=== PATIENT | male | born 1950 | race Caucasian/White ===

== ENCOUNTER 2022-04-03 01:20 | Inpatient (IN) | payer MEDICARE, OTHER, SELFPAY ==
[2022-04-03] VITALS (48 sets, daily range): BP systolic 83–158; BP diastolic 49–90; PULSE 78–186; RESP 17–44; TEMP 34.9–36.9; O2SAT 89–100; BMI 31.6
--- NOTE | 2022-04-03 | ECHO_ITS ---
Patient Info Name: Solo Driver Age: 72 years : 1950 Gender: Male Ht: 67 in Wt: 201 lbs BSA: 2.11 m2 HR: 118 bpm BP: 124 / 71 mmHg Heart Rhythm: Sinus Rhythm Technical Quality: Fair Exam Date: 04/03/2022 11:40 AM Exam Location: [facility] Pulmonary Patient Status: Inpatient Admit Date: 04/03/2022 Staff Ordering Physician: Fiordaliza Henao MD Executive Vice President Of Sales: Zahraa Merritt RDCS Attending Provider: Damien España MD Referring Physician: Juliano JIMÉNEZ; Exam Type: CA echo doppler color flow Study Info Indications I21.4 - Non-ST elevation (NSTEMI) myocardial infarction Complete two-dimensional, color flow and Doppler transthoracic echocardiogram is performed. Summary 1. Complete two-dimensional, color flow and Doppler transthoracic echocardiogram is performed. 2. Moderate left ventricular enlargement with mild hypertrophy. Severe hypokinesis of the mid and distal anterolateral and anteroseptal segements as well as apex, with moderate hypokinesis of the inferior wall. EF 30% Grade 2 diastolic dysfunxtion is present. 3. Left atrial chamber dimension is mildly enlarged. 4. No pulmonary hypertension, estimated pulmonary arterial systolic pressure is 32 mmHg. 5. No significant valve disease. 6. NSR. Left Ventricle Left ventricular chamber dimension is moderately enlarged. Left ventricular systolic function is severely reduced, estimated at 25-30%. There is mildly increased left ventricular wall thickness. Left ventricular septal wall motion is normal. The left ventricular diastolic function is grade II diastolic dysfunction. Global longitudinal strain is severely elevated at -8 %. Right Ventricle Right ventricular chamber dimension is normal. Right ventricular systolic function is normal. Left Atria Left atrial chamber dimension is mildly enlarged. Right Atria Right atrial chamber dimension is normal. Aortic Valve The aortic valve is trileaflet. There is no aortic valve sclerosis. There is no aortic valve stenosis. There is no aortic valve regurgitation. Pulmonic Valve The pulmonic valve is normal. There is no pulmonic valve stenosis. There is no pulmonic regurgitation. Mitral Valve The mitral valve has normal leaflets. There is no mitral valve stenosis. There is trace mitral valve regurgitation. Tricuspid Valve The tricuspid valve leaflets are normal. There is no significant tricuspid valve stenosis. There is trace tricuspid valve regurgitation. No pulmonary hypertension, estimated pulmonary arterial systolic pressure is 32 mmHg. Pericardium/Pleural The pericardium appears normal. There is no pericardial effusion. Inferior Vena Cava Normal inferior vena cava with >50% collapse upon inspiration consistent with Empty right atrial pressure, 10 mmHg. Aorta The aortic root size at the sinus of Valsalva is normal. The prox ascending aorta size is normal. Left Ventricular Outflow Tract Name Value Normal LVOT 2D LVOT Diameter 2.0 cm LVOT Doppler LVOT Peak Gradient 4 mmHg LVOT Mean Gradient 2 mmHg
--- NOTE | ~2022-04-03 | XR_ITS ---
EXAMINATION: XR chest 1V portable DATE: 04/04/2022 10:33 INDICATION: Intra-aortic balloon pump. TECHNIQUE: A single frontal view of the chest was obtained. COMPARISON: Chest single view 04/03/2022 FINDINGS: There are airspace opacities in the perihilar regions and lower lung zones. No pleural effu ez or pneumothorax. The heart size is normal. There is an intra-aortic balloon pump in expected pos ition. Mediastinal lipomatosis is noted. IMPRESSION: 1. Improved airspace opacities in the perihilar regions and lower lung zones, consistent with pulmona ry edema versus pneumonia. Reviewed, dictated and finalized at location A. IMPRESSION: 1. Improved airspace opacities in the perihilar regions and lower lung zones, c onsistent with pulmonary edema versus pneumonia.
--- NOTE | ~2022-04-03 | XR_ITS ---
EXAMINATION: XR chest 1V portable INDICATION: Congestive heart failure TECHNIQUE: Portable AP chest at 0534 hours COMPARISON: 04/04/2022 FINDINGS: There are stable bilateral perihilar opacities. Bibasilar airspace opacities have improved. The heart size is normal. No pleural effusion or pneumothorax. An intra-aortic balloon pump is noted in expected position. IMPRESSION: 1. Stable bilateral perihilar opacities, consistent with atelectasis versus pneumonia. Reviewed, dictated and finalized at location A. IMPRESSION: 1. Stable bilateral perihilar opacities, consistent with atelectasis versus pne umonia.
--- NOTE | ~2022-04-03 | XR_ITS ---
EXAMINATION: XR chest 1V portable DATE: 04/03/2022 02:21 INDICATION: Shortness of breath. TECHNIQUE: A single frontal view of the chest was obtained. COMPARISON: Chest 2 views 05/25/2004, chest CT 04/03/2022 FINDINGS: There are airspace and interstitial opacities in all right lung zones and in left mid and l ower lung zones. There are small pleural effusions. No pneumothorax. The heart size is normal. IMPRESSION: 1. Diffuse lung disease, consistent with pneumonia and/or pulmonary edema. 2. Small pleural effusions. Reviewed, dictated and finalized at location A.
--- NOTE | ~2022-04-03 | CT_ITS ---
EXAMINATION:CT diagnostic chest wo con DATE: 04/03/2022 03:37 INDICATION: Shortness of breath. TECHNIQUE: Computed tomography (CT) of the chest was performed without intravenous contrast. Automate d exposure control and iterative reconstruction technique were employed. The dose-length product (DLP ) was 432.35 mGy-cm. COMPARISON: None. FINDINGS: There are small pleural effusions. There are airspace and groundglass opacities and crazy p aving in all lobes with air bronchograms, worst in the lower lobes. There are pneumatoceles in the lo wer lobes. There are nodules in the thyroid measuring up to 11 mm, likely not clinically significant. The heart size is normal. There are coronary artery calcifications. No pericardial effusion. There i s a 1.6 x 2.3 cm mass with central calcifications in the anterior mediastinum. There is mild thoracic spondylosis. IMPRESSION: 1. Diffuse lung disease, consistent with pneumonia and/or pulmonary edema. 2. Small pleural effusions. 3. 2.3 cm mass with calcifications in the anterior mediastinum. The differential diagnosis includes t hymic neoplasm such as thymoma, germ cell neoplasm, and ectopic thyroid nodule. Reviewed, dictated and finalized at location [facility]. IMPRESSION: 1. Diffuse lung disease, consistent with pneumonia and/or pulmonary edema. 2. Small pleural effusions. 3. 2.3 cm mass with calcifications in the anterior mediastinum. The differentia l diagnosis includes thymic neoplasm such as thymoma, germ cell neoplasm, and e ctopic thyroid nodule.
--- NOTE | ~2022-04-03 | CT_ITS ---
EXAMINATION: CT abdomen pelvis wo con DATE: 04/04/2022 09:38 INDICATION: Retroperitoneal hemorrhage TECHNIQUE: Computed tomography (CT) of the abdomen and pelvis was performed without intravenous contr ast. Automated exposure control and iterative reconstruction technique were employed. Exam dose: 102 2.08 mGy-cm total exam DLP. COMPARISON: None. FINDINGS: Prominent patchy groundglass infiltrates are noted in the lower lung finnegan involving the m iddle, left and bilateral lower lobes. The appearance is most consistent with bilateral pneumonia, po ssibly Covid infection. Very small pleural effusions. Normal heart size. No pericardial effusion. The liver, spleen, pancreas, and adrenal glands are unremarkable. The gallbladder is present. No floyd cholecystic fluid or fat stranding. No bile duct or pancreatic duct dilatation. Slightly greater than 10 cm right renal cyst with some superior septation. Several punctate nonobstr ucting right renal calculi. There is an intra-aortic balloon pump. No abdominal aortic aneurysm. 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 No intraperitoneal or retroperitoneal or pelvic mass lesion or adenopathy or ascites is noted. There are numerous diverticula of the sigmoid and descending colon; no CT evidence of diverticulitis. There are fluid levels in the colon which is an abnormal finding unless there have been recent enema s. This may be due to colitis. Normal appendix. No bowel obstruction or intraperitoneal free air. There is a Pan catheter within the evacuated urinary bladder Prostate enlargement and calcifications. Bilateral vas deferens calcifications, usually associated with diabetes. Degenerative changes of the thoracic and lumbar spine including moderately severe degenerative diseas e at L4-5 and L5-S1. There is no suspicious osteolytic or osteoblastic lesions.. IMPRESSION: Intra-aortic balloon pump Prominent bilateral pulmonary infiltrates likely due to Covid pneumonia 10+ centimeter septated right renal cyst Minimal nonobstructive right nephrolithiasis Diverticulosis of left colon; no evidence of diverticulitis Reviewed, dictated and finalized at [facility]. Reviewed, dictated and finalized at location [facility].
--- NOTE | 2022-04-03 01:31 | ECG_ITS ---
Measurements Intervals [place] Rate: 158 P: 27 MD: 124 QRS: 45 QRSD: 95 T: 57 QT: 261 QTc: 424 Interpretive Statements SINUS TACH[address]ARD[address] ELEVATION, CONSIDER ANTERIOR INJURY INFERIOR AND LATERAL ST DEPRESSION CONSISTENT WITH ISCHEMIA NO PREVIOUS ECG AVAILABLE FOR COMPARISON Electronically Signed On 04-03-2022 18:16:22 CDT by Fiordaliza Henao M.D.
[2022-04-03] MEDS: FUROSEMIDE INJ 40 MG/4 ML VIAL IV PUSH ×2 (01:37→10:16)
[2022-04-03] MEDS: NITROGLYCERIN OINTMENT 1 INCH DOSE (01:37)
[2022-04-03] MEDS: LORazepam INJ (*CRX) 2 MG/ML VIAL 1 MG IV PUSH (01:38)
[2022-04-03 01:39] LABS: Alveolar/Arterial O2 Gradient 230.1 mmHg; Base Excess ABG -15.2 mEq/l (+/-2.0); Fractional Inspired Oxygen 50 %; HCO3 ABG 15.6 mEq/l (22.0-26.0); Oxygen Content ABG 19.9 %vol (16.0-22.0); PCO2 ABG 55.5 mmHg (35.0-45.0); PO2 FiO2 Ratio Arterial Blood 1.28 %; Total Hemoglobin 17.4 g/dL (12.0-18.0)
[2022-04-03 01:45] LABS: Oxygen Saturation ABG 82.3 % (95.0-100.0); pH ABG 7.066 (7.350-7.450)
[2022-04-03 01:46] LABS: Device NON-INVASIVE VENT; Modified Allen's Test Unable to perform; Oxyhemoglobin 81.5 % THb (90.0-100.0); Site Drawn RIGHT RADIAL
[2022-04-03 01:48] LABS: Basophils Percent Auto 0.3 % (0.2-1.2); Eosinophils Percent Auto 0.1 % (0-4.4); Hematocrit 55.9 % (42.0-52.0); Immature Granulocyte Absolute 0.09 K/mm3 (0.00-0.031); Immature Granulocyte Percent A 0.6 % (0-0.5); Lymphocytes Absolute Auto 2.23 K/mm3 (0.9-3.2); Mean Corpuscular HGB Conc 30.4 g/dl (32-36); Mean Corpuscular Hemoglobin 32.4 pg (26-34); Mean Corpuscular Volume 106.5 fl (80-100); Mean Platelet Volume 10.8 fl (7.4-10.4); Monocytes Absolute Auto 0.7 K/mm3 (0.1-0.6); Monocytes Percent Auto 4.7 % (2.6-8.5); Neutrophils Absolute Auto 12.8 K/mm3 (1.3-6.7); Neutrophils Percent Auto 80.3 % (45.5-73.1); Non-Invasive Expiratory Pressure 8 CMH2O; Non-Invasive Inspiratory Pressure 12 CMH2O; Non-Invasive Vent Rate 16 /MIN; Platelet Count Result 310 k/mm3 (150-375); Red Blood Count 5.25 M/mm3 (4.6-6.20); Red Cell Distribution Width 13.7 % (11.5-14.5); White Blood Count 15.9 K/mm3 (4.5-10.0)
[2022-04-03] MEDS: ALBUTEROL SULFATE NEB 2.5 MG/3 ML INH 5 MG INHALATION (01:48)
[2022-04-03] MEDS: dilTIAZem HCl INJ 25 MG/5 ML VIAL 10 MG IV PUSH (01:50)
[2022-04-03] MEDS: dilTIAZem 100 MG/100 ML 100 MG/100 ML BAG IV CONT (01:57)
--- NOTE | 2022-04-03 02:03 | ECG_ITS ---
Measurements Intervals [place] Rate: 114 P: 63 [place]: 157 QRS: 11 QRSD: 81 T: 106 QT: 309 QTc: 426 Interpretive Statements SINUS TACHYCARDIA WITH OCCASIONAL ECTOPIC PREMATURE COMPLEXES LOW QRS VOLTAGE IN EXTREMITY LEADS [QRS DEFLECTION < 0.5 mV IN LIMB LEADS] ST ELEVATION CONSISTENT WITH INJURY, PERICARDITIS, OR EARLY REPOLARIZATION [ST ELEVATION W/O NORMALLY INFLECTED T WAVE] ST DEPRESSION, CONSIDER INFEROLATERAL SUBENDOCARDIAL INJURY [0.1+ mV ST DEPRESSION] ABNORMAL QRS-T ANGLE [QRS-T AXIS DIFFERENCE > 60] COMPARED TO ECG 04/03/2022 01:38:15 RATE IS SLOWER. Electronically Signed On 04-03-2022 18:17:14 CDT by Fiordaliza Henao M.D.
[2022-04-03 02:05] LABS: Albumin Level 5.2 g/dL (3.5-5.1); Alkaline Phosphatase 114 U/L (38-126); Anion Gap 22 mmol/L (8-16); Aspartate Amino Transferase 44 U/L (17-59); Bilirubin,Total 0.6 mg/dL (0.2-1.3); Blood Urea Nitrogen 27 mg/dL (9-20); Calcium 10.2 mg/dL (8.4-10.2); Carbon Dioxide 20 mmol/L (22-30); Chloride 102 mmol/L (98-107); D Dimer 0.93 ug/mL (<0.48); Estimated CRCL calculation 44 ml/min; Estimated Glomerular Filt Rate 50; Glucose 411 mg/dL (65-110); Potassium 4.1 mmol/L (3.4-5.0); Sodium 144 mmol/L (137-145)
[2022-04-03 02:08] LABS: Macrocytosis 1+ (NORMAL); Platelet Estimate Adequate (Adequate)
[2022-04-03 02:09] LABS: Alanine Aminotransferase 29 U/L (6-50)
[2022-04-03 02:14] LABS: NT Pro B Type Natriuretic Pept 1310 pg/mL (5-100)
--- NOTE | 2022-04-03 02:17 | PC.NURSE ---
Called lab and requested additional tests to be done per EDP Dr Morin orders, will add on at this time.
[2022-04-03 02:43] LABS: SARS-CoV-2 RNA PCR Positive
--- NOTE | 2022-04-03 02:45 | PC.NURSE ---
Per EDP, Nitro Paste removed from RIGHT chest, 500MLS/NS bolus initiated due to hypotension.
[2022-04-03] MEDS: SODIUM CHLORIDE 0.9% IV 500 ML 999 ML (02:47)
[2022-04-03 02:50] LABS: Alveolar/Arterial O2 Gradient 595.2 mmHg; Base Excess ABG -7.4 mEq/l (+/-2.0); Device NON-INVASIVE VENT; Fractional Inspired Oxygen 100 %; HCO3 ABG 19.7 mEq/l (22.0-26.0); Modified Allen's Test Unable to perform; Oxygen Content ABG 20.3 %vol (16.0-22.0); Oxygen Saturation ABG 92.1 % (95.0-100.0); Oxyhemoglobin 90.1 % THb (90.0-100.0); PCO2 ABG 45.6 mmHg (35.0-45.0); PO2 ABG 72.2 mmHg (80.0-100.0); PO2 FiO2 Ratio Arterial Blood 0.72 %; Site Drawn RIGHT BRACHIAL; pH ABG 7.254 (7.350-7.450)
[2022-04-03] MEDS: HEPARIN SODIUM 5,000 UNITS/ML VIAL 4000 UNITS IV PUSH ×2 (02:50→11:55)
[2022-04-03 02:51] LABS: Non-Invasive Expiratory Pressure 8 CMH2O; Non-Invasive Inspiratory Pressure 12 CMH2O; Non-Invasive Vent Rate 16 /MIN
[2022-04-03 02:52] LABS: Beta-Hydroxybutyrate/Acetoacetate 0.61 mmol/L (0.02-0.27); Hemoglobin A1C 7.1 % (<5.7)
[2022-04-03] MEDS: INSULIN GLARGINE (*BKC) 100 UNITS/ML 14 UNITS SUB-Q (02:59)
--- NOTE | 2022-04-03 03:21 | PC.NURSE ---
Pt to CT scan via stretcher at this time, RESP in assist w/ BIPAP.
--- NOTE | 2022-04-03 03:31 | PM.IMHP ---
H&P: HPI History of Present Illness Date/Time: 04/03/22 03:31 Chief Complaint: SOB Narrative: This is a 72-year-old male with past medical history significant for type 2 diabetes mellitus, weight control, patient usually gets [facility], tested positive for COVID recently today he was brought to the emergency room via EMS due to severe respiratory distress and work of breathing upon arrival to emergency room he was found to have saturations in the low 80s and preliminary workup was significant for ABG with a pH of 7.2 with a pCO2 of 45 and PO2 of 72 a chest x-ray showed diffuse lung infiltrates and tested positive for COVID also troponins were elevated. Patient was placed on BiPAP and was given Lasix which improved his distress. At the time of my visit patient was on BiPAP making history taking limited but patient did express feeling much better. Patient is been admitted for further evaluation management and treatment. Review of Systems Review of Systems: ROS unobtainable: Yes unobtainable due to medical condition ( respiratory distress on BiPAP) Meds Home Medications and Allergies Allergies Allergy/AdvReac Type Severity Reaction Status Date / Time No Known Allergies Allergy Verified 04/03/22 01:27 Vital Signs Vital Signs - 24 hr 04/03/22 01:21 04/03/22 01:26 04/03/22 01:28 Pulse Rate 161 H 161 H Respiratory Rate 40 H Blood Pressure Pulse Oximetry 89 L 90 Oxygen Delivery Non-Rebreather Mask Non-Rebreather Mask Oxygen Flow Rate 15 15 04/03/22 01:43 04/03/22 01:52 04/03/22 01:57 Pulse Rate 151 H 186 H 176 H Respiratory Rate 44 H 40 H Blood Pressure 158/90 H 126/85 126/85 Pulse Oximetry 98 91 Oxygen Delivery Oxygen Flow Rate 04/03/22 01:58 04/03/22 01:46 04/03/22 02:03 Pulse Rate 127 H 122 H 123 H Respiratory Rate 38 H 39 H 28 H Blood Pressure 126/85 Pulse Oximetry 98 Oxygen Delivery Oxygen Flow Rate 04/03/22 02:04 04/03/22 02:08 04/03/22 02:45 Pulse Rate 122 H 118 H 107 H Respiratory Rate 36 H 26 H Blood Pressure 93/59 L 83/49 L Pulse Oximetry 95 97 Oxygen Delivery BiPAP Oxygen Flow Rate 04/03/22 02:54 Pulse Rate 109 H Respiratory Rate 33 H Blood Pressure 109/52 L Pulse Oximetry 99 Oxygen Delivery Oxygen Flow Rate Exam Const: General: cooperative, comfortable, well developed, alert, awake, acute distress mild, ill appearing acutely and other ( on BiPAP) Nutritional Appearance: average body habitus Orientation/consciousness: patient oriented x3 HENMT: Head: normal to inspection, normocephalic and atraumatic Ears: hearing grossly normal bilaterally Face and sinus: normal facial exam Eyes: General: appearance normal, both eyes and all related structures Pupils: Equal, round and reactive pupils present EOM: EOMs intact bilaterally Other: BiPAP mask on Neck: Neck: full ROM, no lymphadenopathy and no JVD Thyroid: thyroid normal Lymphatic: no lymphadenopathy noted Resp: Effort & Inspection: normal respiratory effort, no audible wheezes, no grunting, not labored, no nasal flaring and other ( on BiPAP) Auscultation: diminished lung sounds Cardio: Jugular venous distension: no JVD Rate: regular rate Rhythm: regular rhythm Heart sounds: S1 normal heart sound present and S2 normal heart sound present GI: Inspection: other ( protuberant) GI Palp: Yes Soft to palpation and Yes No hepatosplenomegaly present : General: Yes deferred Skin: Rashes: no rashes Wounds: no wounds Neuro: General: patient oriented x3 and CN's II-XI intact bilaterally Cranial nerves: Yes CN's II-XII intact bilaterally and Yes Equal, round and reactive pupils present Cognition (Neuro): normal cognition Speech: normal speech Gait exam (Neuro): Unable to assess gait Motor exam (neuro): 5/5 motor strength present throughout Extrem: General: normal to inspection, full ROM, no joint enlargement and no pedal edema H&P: Results Labs Labs: Britany
--- NOTE | 2022-04-03 03:38 | ED.GENADULT ---
HPI - General Adult General Chief complaint: Shortness of Breath/Dyspnea Stated complaint: SOB Time Seen by Provider: 04/03/22 01:28 History of Present Illness HPI narrative: 72-year-old male presenting the emergency department for evaluation of shortness of breath. Patient states over the last 2 days he has been having worsening shortness of breath with some intermittent chest pain and chest tightness. This is the reason that the patient called for an ambulance. During transport by EMS patient had a decline in his condition and upon presentation to the emergency department he was in respiratory distress. Patient was saturating at low 80s on 15 L by facemask. Patient did have COVID approximately 2 months ago. Patient has a history of type 2 diabetes. Patient also has history of COPD and hypertension. Patient denies any prior history of PA. Patient does have a history of CVA. Related Data Allergies Allergy/AdvReac Type Severity Reaction Status Date / Time No Known Allergies Allergy Verified 04/03/22 01:27 Review of Systems Review of Systems: ROS unobtainable: Yes unobtainable due to medical condition [facility] Family History Family History (Updated 04/03/22 @ 04:52 by Ar Herron RN) Father Acute myocardial infarction Social History Social History Smoking packs per day: 2 Smoking cigarettes per day: 40.0 Years smoked: 40 Smoking pack-years: 80.00 Smoking status: Former smoker Tobacco type: cigarettes Alcohol intake: former Substance use: never Spiritual care concerns: No Exam Narrative: APPEARANCE: Respiratory distress upon arrival to the emergency communications department chair: normocephalic, atraumatic. EYES: PERRLA/EOMI, conjunctivae clear. NOSE: Normal no drainage NECK: Supple. No adenopathy, no masses. RESPIRATORY: Rhonchi and rails upon arrival, tachypnea CARDIOVASCULAR: Tachycardia with regular rate ABDOMINAL: Soft, nontender, nondistended, normal bowel sounds MUSCULOSKELETAL: Moves all extremities. Strength/ROM intact, No edema, No calf tenderness. NEURO: Alert. Cranial nerves II through XII intact. Grossly intact SKIN: Warm, dry. Normal Color PSYCHIATRIC: Normal affect/mood. Course Course Emergency Course: Upon arrival to emergency room patient appeared to be in flash pulm edema. Patient was given Lasix and Nitropaste. Patient's heart rate became irregular and was in the 200s so patient was started on Cardizem. As patient's heart rate slowed into the 120s he was in normal sinus and the Cardizem was stopped. Patient is diabetic with a beta hydroxybutyrate of 0.6 and a blood sugar sugar of greater than 400, patient was treated with subcu insulin. EKG was discussed with cardiology, Dr. eMera Kinsey, and he felt that this not an acute STEMI but wanted the patient treated as an NSTEMI. Patient was started on Plavix and heparin. X-ray showed evidence of pulmonary vascular ingestion versus pneumonia on the right side. And discussion with Dr. Brown it was agreed to start the patient on vancomycin, Rocephin, azithromycin. CT of the chest was requested by Dr. Brown, this was requested as a plain CT due to the patient already having Lasix. Patient did have a mildly elevated dimer but is receiving heparin. Patient's COVID did come back as positive. Patient did have a recent COVID infection approximately 2 months ago. Has a Case was discussed with the hospitalist and patient was admitted to the ICU. Prior to going to the floor patient's heart rate was down to 115. Patient's blood pressure was 120/60. Patient remained alert oriented and was significantly improved at time of admission. Vital Signs Vital signs: Vital Signs Pulse Rate 161 H 04/03/22 01:21 Respiratory Rate 40 H 04/03/22 01:21 Pulse Oximetry 89 L 04/03/22 01:21 Oxygen Delivery Non-Rebreather Mask 04/03/22 01:21 Oxygen Flow Rate 15 04/03/22 01:21 Pulse Rate 110 H 04/03/22 06:00 Respiratory Rate 26 H
[2022-04-03] MEDS: HEPARIN SOD/D5W 100 UNITS/ML 25,000 UNITS/250 ML BAG 9 UNITS IV CONT (03:39)
[2022-04-03] MEDS: CLOPIDOGREL BISULFATE 300 MG TABLET PO (03:39)
--- NOTE | 2022-04-03 04:00 | PC.NURSE ---
BS 357
[2022-04-03 04:04] LABS: Glucose Point of Care 357 mg/dl (65-105)
--- OUTSIDE RECORDS SUMMARY | 2022-04-03 04:04 | XMS_ITS | Continuity of Care Document ---
:1950 Author Organization [facility] Care Team Providers Name Role Phone [facility] Unavailable Unavailable Problems Combined list of problems from Department of Defense and Veterans Affairs facilities. It does not include entries that were removed or entered in error. Problem Status Onset Problem Type Date of Comments Source Date Resolution Abdominal Pain Active Condition [facility] Benign essential Active Condition [facility] hypertension (SNOMED [facility] [place] 3670923) DIVISION Blepharitis Active Condition [facility] Diabetes mellitus Active Condition [facility] Encounter for Active Condition [facility] Therapeutic Drug [facility] Monitoring DIVISION Erectile dysfunction Active Condition [facility] associated with type [facility] 2 diabetes mellitus DIVISION (SNOMED CT 945200653) Hyperglycemia due to Active Condition . [facility] type 2 diabetes [facility] mellitus DIVISION Hyperlipidemia Active Condition . [facility] (SNOMED CT [id number]) [facility] Obesity Active Condition [facility]
--- OUTSIDE RECORDS SUMMARY | 2022-04-03 04:07 | XMS_ITS ---
:1950 Author Organization Department [facility] rs Address [address] [place] [address] Support Name Relationship Address Phone JOSE MORENO Unavailable [address] [place] [address] JOSE MORENO Unavailable [address] [place] [address] Insurance Providers: All historical and current Section Date Range: From patient's date of to the date document was created.This section includes the names of all active insurance providers for the patient. Insurance Type of Plan Start of End of Group Member Insurance Policy P atient's Provider Coverage Name Policy Policy Number ID Provider's Pete's Relationship Coverage Coverage Telephone Name to Policy Number Pete UNITED MEDICARE MCR Aug 24 [id number] TIFF[employer]IE [employer]VANTAGE (WNR) 2013 0 [facility]A [facility] (WNR) Selected Encounter This section includes the information on record at [place] for the Encounter. Date/Time Encounter Type Encounter Description Reason Provider Source May 06, 2021 08:35 Outpatient Encounter ADMIN MT WALTERS AM (OPALCT) IHE Encounter Template Text not used by [place] Plan of Treatment: Future Appointments (+ 6 months) and Future Tests (+/- 45 days) The Plan of Treatment section includes future care activities for the patient from all [place] treatmentfacilities. This section includes future appointments and future orders which are active, pending orscheduled.Future Appointments This section includes appointments that were scheduled to occur 6 months from the date of the Encounter, up to a maximum of 20 appointments. The data comes from all [place] treatment facilities. Appointment Date/Time Appointment Type Appointment Facili ty Name Jun 26, 2021 09:00 AM AMBULATORY - SURGERY [facility] Sep 10, 2021 10:00 AM AMBULATORY - MEDICINE [facility]
--- OUTSIDE RECORDS SUMMARY | 2022-04-03 04:07 | XMS_ITS | Encounter Summary ---
:1950 Author Organization Department [facility] rs Address [address] [place] [address] Support Name Relationship Address Phone JOSE MORENO Unavailable [address] [facility] [place] [address] JOSE MORENO Unavailable [address] [facility] ( [phone] [place] [address] Insurance Providers: All historical and current Section [...] Policy Number Pete UNITED MEDICARE MCR Aug [id number] TIFF[employer]IE [employer]VANTAGE (WNR) 2013 27 0 ISABELA [facility] (WNR) Selected Encounter This section includes the information on record at [place] for the Encounter. Date/Time Encounter Type Encounter Description Reason Provider Source Sep 23, 2021 10:28 Outpatient Encounter ADMIN MT WALTERS AM (OPALCT) IHE Encounter Template Text not used by [place] Plan of Treatment: Future Appointments (+ 6 months) and Future Tests (+/- 45 days) The Plan of Treatment section includes future care activities for the patient from all [place] treatmentfacilities. This section includes future appointments and future orders which are active, pending orscheduled.Future Appointments This section includes appointments that were scheduled to occur 6 months from the date of the Encounter, up to a maximum of 20 appointments. The data comes from all [place] treatment facilities. Appointment Date/Time Appointment Type Appointment Facili ty Name Feb 18, 2022 09:30 AM AMBULATORY - MEDICINE [facility] Feb 27, 2022 10:30 AM AMBULATORY - MEDICINE [facility]
--- OUTSIDE RECORDS SUMMARY | 2022-04-03 04:07 | XMS_ITS ---
:1950 Author Organization Department [facility] rs Address [address] [place] [id number] Support Name Relationship Address Phone JOSE MORENO Unavailable [address] [facility] [place] [address] JOSE MORENO Unavailable [address] [facility] [place] [address] Insurance Providers: All historical and current Section [...] Number Pete UNITED MEDICARE MCR Aug 24 [id number] [phone] TIFF[employer]IE [employer]AGE (WNR) 2013 27 0 [facility] (WNR) Selected Encounter This section includes the information on record at [place] for the Encounter. Date/Time Encounter Type Encounter Reason Provider Source Description Feb 18, 2022 12:57 Outpatient ADMIN PAT ADENIKE WILLIS E PM Encounter (COURTNONCT) IHE Encounter Template Text not used by [place] Plan of Treatment: Future Appointments (+ 6 months) and Future Tests (+/- 45 days) The Plan of Treatment section includes future care activities for the patient from all [place] treatmentfacilities. This section includes future appointments and future orders which are active, pending orscheduled.Future Appointments This section includes appointments that were scheduled to occur 6 months from the date of the Encounter, up to a maximum of 20 appointments. The data comes from all [place] treatment facilities. Appointment Date/Time Appointment Type Appointment Facili ty Name Feb 27, 2022 10:30 AM AMBULATORY - MEDICINE [facility]
--- OUTSIDE RECORDS SUMMARY | 2022-04-03 04:08 | XMS_ITS | Encounter Summary ---
:1950 Author Organization Department [facility] rs Address [address] [place] [address] Support Name Relationship Address Phone JOSE MORENO Unavailable [address] [facility] [place] [address] JOSE MORENO Unavailable [address] [facility] ( [phone] [place] [address] Insurance Providers: All historical and current Section [...] Number Pete UNITED MEDICARE MCR Aug 24 [id number] [phone] TIFFANIE [employer]VANTAGE (WNR) 2013 0 IS[facility]ELA [facility] (WNR) Selected Encounter This section includes the information on record at [place] for the Encounter. Date/Time Encounter Type Encounter Description Reason Provider Source Feb 27, 2022 10:16 Outpatient Encounter ADMIN MT WALTERS AM (OPALCT) IHE Encounter Template Text not used by [place] Plan of Treatment: Future Appointments (+ 6 [...] 20 appointments. The data comes from all [place] treatment facilities. Appointment Date/Time Appointment Type Appointment Facili ty Name Apr 10, 2022 09:30 AM AMBULATORY - MEDICINE [facility] Jun 24, 2022 08:30 AM AMBULATORY - SURGERY [facility]
--- OUTSIDE RECORDS SUMMARY | 2022-04-03 04:08 | XMS_ITS | Encounter Summary ---
:1950 Author Organization [facility] Address [address] [place] [address] Support Name Relationship Address Phone JOSE MORENO Unavailable [address] [facility] [address] JOSE MORENO Unavailable [address] [facility] [address] Insurance Providers: All historical and current Section [...] Policy Number Pete UNITED MEDICARE MCR Aug 24, [id number] IT[employer]IE [employer]VANTAGE (WNR) 2013 27 0 [facility]A [facility] (WNR) Selected Encounter This section includes the information on record at [place] for the Encounter. Date/Time Encounter Type Encounter Reason Provider Source Description Mar 03, 2022 02:07 Outpatient TELEPHONE PRIMARY HARJEET DRAPER PM Encounter CARE IHE Encounter Template Text not used by [place] Plan of Treatment: Future Appointments (+ 6 [...] 20 appointments. The data comes from all [place] treatment facilities. Appointment Date/Time Appointment Type Appointment Facili ty Name Apr 10, 2022 09:30 AM AMBULATORY - MEDICINE [facility] Jun 24,
--- OUTSIDE RECORDS SUMMARY | 2022-04-03 04:08 | XMS_ITS | Encounter Summary ---
:1950 Author Organization [facility] Address [address] [place] [address] Support Name Relationship Address Phone JOSE MORENO Unavailable [address] [facility] [place] [address] JOSE MORENO Unavailable [address] [facility] [place] [address] Insurance Providers: All historical and current Section [...] Number Pete UNITED MEDICARE MCR Aug 24, [id number] [phone] TIFF[employer]IE [employer]VANTAGE (WNR) 2013 27 0 [facility]ELA [facility] (WNR) Selected Encounter This section includes the information on record at [place] for the Encounter. Date/Time Encounter Type Encounter Description Reason Provider Source Mar 15, 2022 02:44 Outpatient Encounter TELEPHONE TRIAGE AM IHE Encounter Template Text not used by [place] Plan of Treatment: Future Appointments (+ 6 months) and Future Tests (+/- 45 days) The Plan of Treatment section includes future care activities for the patient from all [place] treatmentfacilities. This section includes future appointments and future orders which are active, pending orscheduled.Future Appointments This section includes appointments that were scheduled to occur 6 months from the date of the Encounter, up to a maximum of 20 appointments. The data comes from all [place] treatment facilities. Appointment Date/Time Appointment Type Appointment Facili ty Name Apr 10, 2022 09:30 AM AMBULATORY - MEDICINE [facility] Jun 24, 2022 08:30 AM AMBULATORY - SURGERY [facility]
--- OUTSIDE RECORDS SUMMARY | 2022-04-03 04:09 | XMS_ITS | Encounter Summary ---
:1950 Author Organization Department [facility] rs Address [address] [place] [address] Support Name Relationship Address Phone JOSE MORENO Unavailable [address] [facility] [address] JOSE MORENO Unavailable [address] [facility] ( [phone] [place] [address] Insurance Providers: All historical and current Section [...] Number Pete UNITED MEDICARE MCR Aug 24 [id number] [phone] PATIENCE MORENO [employer] ADVANTAGE (WNR) 2013 0 ISABELA [facility] (WNR) Selected Encounter This section includes the information on record at [place] for the Encounter. Date/Time Encounter Type Encounter Reason Provider Source Description Feb 18, 2022 OFFICE O/P EST PRIMARY ICD-10-CM E11.65 BRYCE SIMONS 09:30 AM MOD 30-39 MIN CARE/MEDICINE Type 2 diabetes D T mellitus with hyperglycemia with Provider Comments: Hyperglycemia due to type 2 diabetes mellitus ([facility] [id number]) IHE Encounter Template Text not used by [facility] Assessments - Encounter Diagnoses This section includes the primary and secondary diagnoses documented for the Encounter. Date/Time Primary/Secondary Diagnos
--- OUTSIDE RECORDS SUMMARY | 2022-04-03 04:09 | XMS_ITS | Encounter Summary ---
:1950 Author Organization Department [facility] rs Address [address] [place] [address] Support Name Relationship Address Phone JOSE MORENO Unavailable [address] [facility] ( [phone] [place] [address] JOSE MORENO Unavailable [address] [facility] [place] [address] Insurance Providers: All historical and current Section [...] Number Pete UNITED MEDICARE MCR Aug 24 [id number] [phone] TIFFANIE PATIENT HEALTHCARE ADVANTAGE (WNR) 2013 27 0 ISABELA [facility] (WNR) Selected Encounter This section includes the information on record at [place] for the Encounter. Date/Time Encounter Type Encounter Description Reason Provider Source Feb 18, 2022 01:04 Outpatient Encounter ADMIN PAT ACTIVTIES PM (COURTNONCT) IHE Encounter Template Text not used by [place] Plan of Treatment: Future Appointments (+ 6 [...] 20 appointments. The data comes from all [place] treatment facilities. Appointment Date/Time Appointment Type Appointment Facili ty Name Feb 27, 2022 10:30 AM AMBULATORY - MEDICINE [facility] Apr 10, 2022 09:30 AM AMBULATORY - MEDICINE [place]
--- OUTSIDE RECORDS SUMMARY | 2022-04-03 04:09 | XMS_ITS | Encounter Summary ---
:1950 Author Organization [facility] Address [address] [place] [address] Support Name Relationship Address Phone JOSE MORENO Unavailable [address] [facility] [place] [address] JOSE MORENO Unavailable [address] [facility] ( [phone] [place] [address] Insurance Providers: All historical and current Section [...] Number Pete UNITED MEDICARE MCR Aug 24, [id number] [phone] TIFFANIE PATIENT HE[employer]CARE ADVANTAGE (WNR) 2013 27 0 ISABELA [facility] (WNR) Selected Encounter This section includes the information on record at [place] for the Encounter. Date/Time Encounter Type Encounter Reason Provider Source Description Feb 27, 2022 HC PRO PHONE TELEPHONE PRIMARY ICD-10-CM ADENIKE HENRIQUEZ 10:30 AM CALL 11-20 MIN CARE E11.40 Type 2 E diabetes mellitus with diabetic neuropathy, unsp with Provider Comments: Diabetes mellitus (SCT [id number]) IHE Encounter Template Text not used by VA Assessments - En
--- OUTSIDE RECORDS SUMMARY | 2022-04-03 04:09 | XMS_ITS | Encounter Summary ---
:1950 Author Organization [facility] Address [address] [place] [address] Support Name Relationship Address Phone JOSE MORENO Unavailable [address] [facility] [place] [address] JOSE MORENO Unavailable [address] [facility] [place] [address] Insurance Providers: All historical and current Section [...] Number Pete UNITED MEDICARE MCR Aug 24, [id number] [phone] TIFFANIE PATIENT [employer]CARE ADVANTAGE (WNR) 2013 0 ISABELA [facility] (WNR) Selected Encounter This section includes the information on record at [place] for the Encounter. Date/Time Encounter Type Encounter Reason Provider Source Description Feb 17, 2022 09:19 Outpatient TELEPHONE PRIMARY CONCEPCIÓN LEMUS AM Encounter CARE IHE Encounter Template Text not used by [place] Plan of Treatment: Future Appointments (+ 6 months) and Future Tests (+/- 45 days) The Plan of Treatment section includes future care activities for the patient from all [place] treatmentfacilities. This section includes future appointments and future orders which are active, pending orscheduled.Future Appointments This section includes appointments that were scheduled to occur 6 months from the date of the Encounter, up to a maximum of 20 appointments. The data comes from all [place] treatment facilities. Appointment Date/Time Appointment Type Appointment Facili ty Name Feb 18, 2022 09:30 AM [facility] Feb 27
--- OUTSIDE RECORDS SUMMARY | 2022-04-03 04:11 | XMS_ITS | Encounter Summary ---
:1950 Author Organization [facility] Address [address] [place] [address] Support Name Relationship Address Phone JOSE MORENO Unavailable [address] [facility] [place] [address] JOSE MORENO Unavailable [address] [facility] [place] [address] Insurance Providers: All historical and current Section [...] Number Pete UNITED MEDICARE MCR Aug 24, [id number] [phone] TIFFANIE PATIENT [employer] ADVANTAGE (WNR) 2013 27 0 ISABELA [facility] (WNR) Selected Encounter This section includes the information on record at [place] for the Encounter. Date/Time Encounter Type Encounter Reason Provider Source Description Feb 03, 2022 08:12 Outpatient Encounter TELEPHONE TRIAGE H BOB PAUL AM Encounter Template Text not used by [place] Plan of Treatment: Future Appointments (+ 6 months) and Future Tests (+/- 45 days) The Plan of Treatment section includes future care activities for the patient from all [place] treatmentfacilities. This section includes future appointments and future orders which are active, pending orscheduled.Future Appointments This section includes appointments that were scheduled to occur 6 months from the date of the Encounter, up to a maximum of 20 appointments. The data comes from all [place] treatment facilities. Appointment Date/Time Appointment Type Appointment Facili ty Name Feb 18, 2022 09:30 AM AMBULATORY - MEDICINE [facility] Bobby
--- OUTSIDE RECORDS SUMMARY | 2022-04-03 04:11 | XMS_ITS | Encounter Summary ---
:1950 Author Organization [facility] Address [address] [place] [address] Support Name Relationship Address Phone JOSE MORENO Unavailable [address] [facility] [address] JOSE MORENO Unavailable [address] [facility] [address] Insurance Providers: All historical and current Section [...] Number Pete UNITED MEDICARE MCR Aug 24, [id number] [phone] TIFFANIE PATIENT HE[employer]CARE ADVANTAGE (WNR) 2013 27 0 ISABELA [facility] (WNR) Selected Encounter This section includes the information on record at [place] for the Encounter. Date/Time Encounter Type Encounter Description Reason Provider Source Jan 26, 2022 02:56 Outpatient Encounter TELEPHONE TRIAGE AM IHE Encounter [...] 18, 2022 09:30 AM [facility] Feb 27, 2022 10:30 AM AMBULATORY - MEDICINE [place] Espinoza
--- OUTSIDE RECORDS SUMMARY | 2022-04-03 04:11 | XMS_ITS | Encounter Summary ---
:1950 Author Organization [facility] Address [address] [place] [address] Support Name Relationship Address Phone JOSE MORENO Unavailable [address] [facility] [place] [address] JOSE MORENO Unavailable [address] [facility] [place] [address] Insurance Providers: All historical and current Section [...] Number Pete UNITED MEDICARE MCR Aug 24, [id number] [phone] TIFFANIE PATIENT HE[employer]CARE ADVANTAGE (WNR) 2013 27 0 ISABELA [facility] (WNR) Selected Encounter This section includes the information on record at [place] for the Encounter. Date/Time Encounter Type Encounter Description Reason Provider Source Dec 15, 2021 03:04 Outpatient Encounter TELEPHONE TRIAGE PM IHE Encounter Template Text not used by [place] Plan of Treatment: Future Appointments (+ 6 months) and Future Tests (+/- 45 days) The Plan of Treatment section includes future care activities for the patient from all [place] treatmentfacilities. This section includes future appointments and future orders which are active, pending orscheduled.Future Appointments This section includes appointments that were scheduled to occur 6 months from the date of the Encounter, up to a maximum of 20 appointments. The data comes from all [place] treatment facilities. Appointment Date/Time Appointment Type Appointment Facili ty Name Feb 18, 2022 09:30 AM AMBULATORY - MEDICINE [facility] Feb 27, 2022 10:30 AM AMBULATORY - MEDICINE [facility]
--- OUTSIDE RECORDS SUMMARY | 2022-04-03 04:12 | XMS_ITS | Encounter Summary ---
:1950 Author Organization [facility] rs Address [address] [place] [address] Support Name Relationship Address Phone JOSE MORENO Unavailable [address] [facility] ( [phone] [place] [address] JOSE MORENO Unavailable [address] [facility] [place] [address] Insurance Providers: All historical and current Section [...] Number Pete UNITED MEDICARE MCR Aug 24 [id number] [phone] TIFFANIE PATIENT HEALTHCARE ADVANTAGE (WNR) 2013 0 ISABELA [facility] (WNR) Selected Encounter This section includes the information on record at [place] for the Encounter. Date/Time Encounter Type Encounter Description Reason Provider Source May 23, 2021 03:13 Outpatient Encounter ADMIN PAT ACTIVTIES PM (COURTNONCT) IHE Encounter Template Text not used by [place] Plan of Treatment: Future Appointments (+ 6 months) and Future Tests (+/- 45 days) The Plan of Treatment section includes future care activities for the patient from all [place] treatmentfacilities. This section includes future appointments and future orders which are active, pending orscheduled.Future Appointments This section includes appointments that were scheduled to occur 6 months from the date of the Encounter, up to a maximum of 20 appointments. The data comes from all [place] treatment facilities. Appointment Date/Time Appointment Type Appointment Facili ty Name Jun 26, 2021 09:00 AM AMBULATORY - SURGERY [facility] Sep 10, 2021 10:00 AM AMBULATORY - MEDICINE [place]
--- OUTSIDE RECORDS SUMMARY | 2022-04-03 04:12 | XMS_ITS | Encounter Summary ---
:1950 Author Organization [facility] Address [address] [place] [address] Support Name Relationship Address Phone JOSE MORENO Unavailable [address] [facility] [place] [address] JOSE MORENO Unavailable [address] [facility] [place] [address] Insurance Providers: All historical and current Section [...] Policy Number Pete UNITED MEDICARE MCR Aug [id number] [phone] TIFFANIE PATIENT HEALTHCARE ADVANTAGE (WNR) 2013 27 0 ISABELA [facility] (WNR) Selected Encounter This section includes the information on record at [place] for the Encounter. Date/Time Encounter Type Encounter Description Reason Provider Source Jul 10, 2021 12:00 Outpatient Encounter EVENT (HISTORICAL) AM IHE Encounter Template Text not used by [place] Plan of Treatment: Future Appointments (+ 6 [...] 20 appointments. The data comes from all [place] treatment facilities. Appointment Date/Time Appointment Type Appointment Facili ty Name Sep 10, 2021 10:00 AM [facility]ULATORY - MEDICINE [place] [facility] Social History: Smoking Status (Most current) and Tobacco Use (All prior
--- OUTSIDE RECORDS SUMMARY | 2022-04-03 04:12 | XMS_ITS | Encounter Summary ---
:1950 Author Organization [facility] Address [address] [place] [address] Support Name Relationship Address Phone JOSE MORENO Unavailable [address] [facility] [place] [address] JOSE MORENO Unavailable [address] [facility] [place] [address] Insurance Providers: All historical and current Section [...] Number Pete UNITED MEDICARE MCR Aug 24, [id number] [phone] TIFFANIE , PATIENT HEALTHCARE ADVANTAGE (WNR) 2013 0 ISABELA [facility] (WNR) Selected Encounter This section includes the information on record at [place] for the Encounter. 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
--- OUTSIDE RECORDS SUMMARY | 2022-04-03 04:12 | XMS_ITS | Encounter Summary ---
:1950 Author Organization [facility] Address [address] [place] [address] Support Name Relationship Address Phone JOSE MORENO Unavailable [address] [place] [address] JOSE MORENO Unavailable [address] [place] [address] Insurance Providers: All historical and current Section [...] Number Pete UNITED MEDICARE MCR Aug 24 [id number] [phone] TIFFANIE PATIENT HEALTHCARE ADVANTAGE (WNR) 2013 0 ISABELA [facility] (WNR) Selected Encounter This section includes the information on record at [place] for the Encounter. Date/Time Encounter Type Encounter Reason Provider Source Description May 14, 2021 08:22 Outpatient TELEPHONE/ANCILLARY VIN TOM AM Encounter RA L IHE Encounter Template Text not used by [place] Plan of Treatment: Future Appointments (+ 6 months) and Future Tests (+/- 45 days) The Plan of Treatment section includes future care activities for the patient from all [place] treatmentfacilities. This section includes future appointments and future orders which are active, pending orscheduled.Future Appointments This section includes appointments that were scheduled to occur 6 months from the date of the Encounter, up to a maximum of 20 appointments. The data comes from all [place] treatment facilities. Appointment Date/Time Appointment Type Appointment Facili ty Name Jun 26, 2021 09:00 AM AMBULATORY - SURGERY [facility]
--- OUTSIDE RECORDS SUMMARY | 2022-04-03 04:12 | XMS_ITS | Encounter Summary ---
:1950 Author Organization [facility] Address [address] [place] [address] Support Name Relationship Address Phone JOSE MORENO Unavailable [address] [place] [address] JOSE MORENO Unavailable [address] [place] [address] Insurance Providers: All historical and current Section [...] Number Pete UNITED MEDICARE MCR Aug 24, [id number] [phone] TIFFANIE , PATIENT HEALTHCARE ADVANTAGE (WNR) 2013 0 ISABELA [facility] (WNR) Selected Encounter This section includes the information on record at [place] for the Encounter. Date/Time Encounter Type Encounter Reason Provider Source Description Jun 26, 2021 CPTR OPHTH DX OPHTHALMOLOGY ICD-10-CM ARACELY MAIN 12:48 PM IMG POST SEGMT H35.3130 Nexdtve SSA M age-related mclr degn, bilateral, stage unspecified with Provider Comments: Nonexudative age-related macular degeneration, bilateral, stage
--- OUTSIDE RECORDS SUMMARY | 2022-04-03 04:12 | XMS_ITS | Encounter Summary ---
:1950 Author Organization [facility] Address [address] [place] [address] Support Name Relationship Address Phone JOSE MORENO Unavailable [address] [facility] [place] [address] JOSE MORENO Unavailable [address] [facility] ( [phone] [place] [address] Insurance Providers: All historical and current Section [...] Policy Number Pete UNITED MEDICARE MCR Aug [id number] [phone] TIFFANIE , PATIENT HEALTHCARE ADVANTAGE (WNR) [address] [facility] (WNR) Selected Encounter This section includes the information on record at [place] for the Encounter. Date/Time Encounter Type Encounter Reason Provider Source Description Sep 10, 2021 Outpatient TELEPHONE PRIMARY ICD-10-CM DESHAUN SIMONS 10:00 AM Encounter CARE E11.40 Type 2 T diabetes mellitus with diabetic neuropathy, unsp with Provider Comments: Diabetes mellitus (SCT [id number]) IHE Encounter Template Text not used by VA Assessments - Encou
--- OUTSIDE RECORDS SUMMARY | 2022-04-03 04:12 | XMS_ITS | Encounter Summary ---
:1950 Author Organization [facility] Address [address] [place] [address] Support Name Relationship Address Phone JOSE MORENO Unavailable [address] [facility] [place] [address] JOSE MORENO Unavailable [address] [facility] [place] [address] Insurance Providers: All historical and current Section [...] Number Pete UNITED MEDICARE MCR Aug 24 [id number] [phone] TIFFANIE PATIENT HEALTHCARE ADVANTAGE (WNR) 2013 27 0 ISABELA [facility] (WNR) Selected Encounter This section includes the information on record at [place] for the Encounter. Date/Time Encounter Type Encounter Reason Provider Source Description Sep 06, 2021 03:15 Outpatient TELEPHONE PRIMARY CONCEPCIÓN LEMUS Encounter CARE IHE Encounter Template Text not used by [place] Plan of Treatment: Future Appointments (+ 6 months) and Future Tests (+/- 45 days) The Plan of Treatment section includes future care activities for the patient from all [place] treatmentfacilities. This section includes future appointments and future orders which are active, pending orscheduled.Future Appointments This section includes appointments that were scheduled to occur 6 months from the date of the Encounter, up to a maximum of 20 appointments. The data comes from all [place] treatment facilities. Appointment Date/Time Appointment Type Appointment Facili ty Name Sep 10, 2021 10:00 AM AMBULATORY - MEDICINE [facility] [place]
--- OUTSIDE RECORDS SUMMARY | 2022-04-03 04:13 | XMS_ITS | Encounter Summary ---
:1950 Author Organization [facility] Address [address] [place] [address] Support Name Relationship Address Phone JOSE MORENO Unavailable [address] [facility] [place] [address] JOSE MORENO Unavailable [address] [facility] [place] [address] Insurance Providers: All historical and current Section [...] Number Pete UNITED MEDICARE MCR Aug 24 [id number] [phone] TIFFANIE PATIENT HEALTHCARE ADVANTAGE (WNR) 2013 27 0 ISABELA [facility] (WNR) Selected Encounter This section includes the information on record at [place] for the Encounter. Date/Time Encounter Type Encounter Reason Provider Source Description Apr 22, 2021 11:20 Outpatient TELEPHONE/ANCILLARY WILFRIDO SIMONS AM Encounter IHE Encounter Template Text not used by [...] 26, 2021 09:00 AM AMBULATORY - SURGERY [facility] Ja
--- OUTSIDE RECORDS SUMMARY | 2022-04-03 04:13 | XMS_ITS | Encounter Summary ---
:1950 Author Organization [facility] Address [address] [place] [address] Support Name Relationship Address Phone JOSE MORNEO Unavailable [address] [place] [address] JOSE MORENO Unavailable [address] [place] [address] Insurance Providers: All historical and current Section [...] Number Pete UNITED MEDICARE MCR Aug 24 [id number] [phone] TIFFANIE PATIENT HEALTHCARE ADVANTAGE (WNR) 2013 27 0 ISABELA [facility] (WNR) Selected Encounter This section includes the information on record at [place] for the Encounter. Date/Time Encounter Type Encounter Reason Provider Source Description May 14, 2021 09:13 Outpatient TELEPHONE/ANCILLARY KEVYN ANDERSON AM Encounter IHE Encounter Template Text not used by [place] Plan of Treatment: Future Appointments (+ 6 months) and Future Tests (+/- 45 days) The Plan of Treatment section includes future care activities for the patient from all [place] treatmentfacilities. This section includes future appointments and future orders which are active, pending orscheduled.Future Appointments This section includes appointments that were scheduled to occur 6 months from the date of the Encounter, up to a maximum of 20 appointments. The data comes from all [place] treatment facilities. Appointment Date/Time Appointment Type Appointment Facili ty Name Jun 26, 2021 09:00 AM AMBULATORY - SURGERY [facility] J
--- NOTE | 2022-04-03 04:42 | ADMGEN ---
This patient, Solo Driver, was admitted to Intensive Care Unit-9. Patient/family oriented to hospital policies and general routines including ID bracelet, bed and alarms, visiting hours, pain management, procedures, bathroom and other care routines, personal items, smoking policy, room service/diet, and visiting hours. Information on how to activate the Rapid Response Team has been discussed. Patient/Family are encouraged to report perceived risks to care and to ask questions if they do not understand what they are told or what they should do.
--- NOTE | 2022-04-03 08:48 | PM.CNCAR ---
Assessment and Plan Assessment and plan (1) NSTEMI (non-ST elevated myocardial infarction): Code(s): I21.4 - Non-ST elevation (NSTEMI) myocardial infarction Status: Acute Assessment and Plan: Pt w/ NSTEMI, trop up to 38 this a.m. Rec cardiac cath probably today as pt appears stable, though still on CPAP Reviewed procedure, risks, possible outcomes such as med tx, PCI or heart surgery. Pt desires to proceed. Cont ASA, heparin (2) Congestive heart failure: Code(s): I50.9 - Heart failure, unspecified Status: Acute Assessment and Plan: New onset acute systolic? CHF Echo pending Cont Lasix 40 mg IVP BID resuming metoprolol Later resume ACEI/ARB or ARN (3) Acute respiratory failure: Code(s): J96.00 - Acute respiratory failure, unspecified whether with hypoxia or hypercapnia Status: Acute Assessment and Plan: Has both CHF and COVID, although this may be more CHF due to cardiac dysfunction. Continue to wean off BiPAP (4) COVID-19: Code(s): U07.1 - COVID-19 Status: Acute Assessment and Plan: History of COVID-19 2 months ago, tested positive this admission. Unclear how much of his current situation is due to COVID versus his underlying heart issues; may be more the latter. (5) T2DM (type 2 diabetes mellitus): Code(s): E11.9 - Type 2 diabetes mellitus without complications Status: Acute Assessment and Plan: Uncontrolled on admission, now improved. History of Present Illness History of Present Illness Consult date/time: 04/03/22 08:48 Reason For Visit: COVID, elevated trop, NSTEMI, hypoxia Narrative: Solo Driver is a 72 y.ol male whom We were asked to see at the request of Dr. Morin for advice and opinion regarding the patient's NSTEMI, in consultation. The patient has a history of diabetes, HTN and COPD and [facility] Takes ASA + Plavix for h/o strokes. No h/o heart dz. The patient had COVID a couple of months ago. He Has been having exertional heartburn for a few weeks. He was having some shortness of breath in the last 2 days which worsened, with some worsening chest burning and tightness which became persistent last night. He called ambulance and in route the patient's respiratory status declined with desaturation. He was brought to the emergency room early this morning with respiratory distress and hypoxia. He has tested positive for COVID, with possible pneumonia and was started on BiPAP. He was thought to have some CHF and given Lasix. He is still on BiPAP with the FiO2 of 50% but improving. He feels a lot better, with no further chest burning. His troponin was 1.8 on admission. EKG was reviewed with Dr. Cuba early this morning and he felt the patient did not have a STEMI which should be treated as an NSTEMI. He was started on heparin and given aspirin and clopidogrel x1. He may have had some transient atrial fibrillation through the night with heart rates irregular in the 200s and was started on Cardizem drip. Blood sugar greater than 400 was treated with insulin, and antibiotics were started. Troponin today is 37.8. No prior records avail in [facility] or [facility]. Review of Systems Constitutional: Constitutional: Denies fever(s) Eyes: Eyes: Reports no additional eye complaints ENT: Denies epistaxis Cardiovascular: Cardiovascular: Reports chest pain, Denies pedal edema, Denies lightheadedness, Reports palpitations and Reports dyspnea Comments: Takes metoprololmetoprololfor fast heartbeats, no h/o a fib. Respiratory: Respiratory: Reports chest congestion, Reports dyspnea, Reports dyspnea on exertion and Reports wheezing Comments: He did have some blood streaks in his sputum yesterday. Gastrointestinal: Gastrointestinal: Denies abdominal pain and Denies hematochezia Genitourinary: Genitourinary: Den
--- NOTE | 2022-04-03 09:05 | ECG_ITS ---
Measurements Intervals [place] Rate: 119 P: 46 AK: 144 QRS: 61 QRSD: 78 T: 105 QT: 300 QTc: 423 Interpretive Statements SINUS TACHYCARDIA NONSPECIFIC ST & T-WAVE ABNORMALITY ABNORMAL RHYTHM ECG COMPARED TO ECG 04/03/2022 02:16:49 T-WAVE ABNORMALITY NOW PRESENT Electronically Signed On 04-03-2022 18:26:53 CDT by Fiordaliza Henao M.D.
[2022-04-03 09:28] LABS: Anion Gap 12 mmol/L (8-16); Blood Urea Nitrogen 32 mg/dL (9-20); Calcium 9.2 mg/dL (8.4-10.2); Carbon Dioxide 24 mmol/L (22-30); Chloride 103 mmol/L (98-107); Estimated CRCL calculation 52 ml/min; Estimated Glomerular Filt Rate 59; Glucose 242 mg/dL (65-110); Magnesium 2.1 mg/dL (1.6-2.3); Phosphorus 4.1 mg/dL (2.5-4.5); Potassium 4.6 mmol/L (3.4-5.0); Sodium 139 mmol/L (137-145)
[2022-04-03 09:34] LABS: Partial Thromboplastin Time 24.8 SECONDS (22.3-36.8)
--- NOTE | 2022-04-03 09:42 | WPDCNINT ---
Assessment and Plan Assessment and plan (1) Acute respiratory failure: Code(s): J96.00 - Acute respiratory failure, unspecified whether with hypoxia or hypercapnia Status: Acute Assessment and Plan: Acute Respiratory failure multifactorial secondary to baseline COPD, congestive heart failure, COVID-[address] scan suggest bilateral infiltrates, elevated BNP, elevated WBC, positive COVID Currently on BiPAP which will be continue. I have started weaning his FiO2 down He received Lasix in ER. I will give another dose this morning ABG reviewed Empiric antibiotic therapy with vancomycin, cefepime and azithromycin Bronchodilators Dexamethasone and remdesivir Check echocardiogram (2) COPD (chronic obstructive pulmonary disease): Code(s): J44.9 - Chronic obstructive pulmonary disease, unspecified Status: Acute Assessment and Plan: See above (3) DKA (diabetic ketoacidosis): Code(s): E11.10 - Type 2 diabetes mellitus with ketoacidosis without coma Status: Acute Assessment and Plan: But patient presented his blood sugar was in 400 and beta hydroxybutyrate was mildly elevated. He had a positive anion gap. He was given Lantus and subcutaneous insulin This morning I repeated his BMP evaluate him for for insulin infusion. Anion gap has closed I will continue with Lantus and change sliding scale to q.4 hours and high scale. If blood sugars are not controlled with this subcutaneous insulin, he may still need insulin infusion Hold p.o. diabetic meds at this time (4) T2DM (type 2 diabetes mellitus): Code(s): E11.9 - Type 2 diabetes mellitus without complications Status: Acute Assessment and Plan: See above (5) COVID-19: Code(s): U07.1 - COVID-19 Status: Acute Assessment and Plan: Patient was tested positive for COVID-19 although his picture is mixed and not classical for COVID-19 pneumonia Isolation Dexamethasone and remdesivir (6) Elevated serum creatinine: Code(s): R79.89 - Other specified abnormal findings of blood chemistry Status: Acute Assessment and Plan: Patient presented with creatinine of 1.4. Repeat creatinine is 1.2 this morning Continue to monitor (7) NSTEMI (non-ST elevated myocardial infarction): Code(s): I21.4 - Non-ST elevation (NSTEMI) myocardial infarction Status: Acute Assessment and Plan: Patient presented with elevated troponin, abnormal EKG and chest discomfort. Repeat troponin is significantly elevated Cardiology consulted Plan for cardiac catheterization today Continue heparin infusion Continue aspirin Plavix and beta-cortez Continue statin Check echocardiogram Serial troponins ordered (8) Essential hypertension: Code(s): I10 - Essential (primary) hypertension Status: Acute Assessment and Plan: Continue beta-cortez Hold lisinopril at this time until renal function stabilizes (9) Congestive heart failure: Code(s): I50.9 - Heart failure, unspecified Status: Acute Assessment and Plan: Check echocardiogram Lasix IV Plan DVT prophylaxis -on heparin infusion Nutrition -NPO at this time Code Status -patient requests to be full code Case discussed with Dr. Henao from Cardiology Total Critical Care Time - minutes Due to a high probability of clinically significant, life threatening deterioration, the patient required my highest level of preparedness to intervene emergently and I personally spent this critical care time directly and personally managing the patient. This critical care time included obtaining a history; examining the patient; pulse oximetry; ordering and review of studies; arranging urgent treatment with development of a management plan; evaluation of patient's response to treatment; frequent reassessment; and discussions with other providers. It was exclusive of separately billable procedures
[2022-04-03] MEDS: ASPIRIN 325 MG ENTERIC TABLET PO (10:14)
[2022-04-03 10:28] LABS: INR 1.1; Prothrombin Time 13.6 Seconds (11.1-14.7)
[2022-04-03 10:53] LABS: Alveolar/Arterial O2 Gradient 233.5 mmHg; Base Excess ABG -5.5 mEq/l (+/-2.0); Fractional Inspired Oxygen 50 %; HCO3 ABG 20.2 mEq/l (22.0-26.0); Oxygen Content ABG 20.6 %vol (16.0-22.0); Oxygen Saturation ABG 94.6 % (95.0-100.0); Oxyhemoglobin 93.7 % THb (90.0-100.0); PO2 FiO2 Ratio Arterial Blood 1.56 %; Total Hemoglobin 15.6 g/dL (12.0-18.0); pH ABG 7.321 (7.350-7.450)
[2022-04-03 10:54] LABS: Device NON-INVASIVE VENT; Site Drawn LEFT BRACHIAL
[2022-04-03 10:55] LABS: Non-Invasive Expiratory Pressure 8 CMH2O; Non-Invasive Inspiratory Pressure 12 CMH2O; Non-Invasive Vent Rate 16 /MIN
--- NOTE | 2022-04-03 11:27 | PCFNICU ---
ICU Rounding Note: Pt current nutrition is NPO. Last recorded weight is 91.5 kg. Bowel Motility: No Bm reported. Labs Reviewed: GFR 50, BUN 27, Cr 1.4, HgbA1c 7.1%, Glu 242 Meds Noted: Vancomycin, Heparin, Maxipime, Zithromax, Cardizem Skin:WNL Additional Notes: DKA admission. Patient currently NPO. Covid+. Cardiology consult, plans for clinical laboratory medical director today. Following daily in ICU rounds.
[2022-04-03] MEDS: REMDESIVIR 200 MG/NS 250 ML 200 MG/250 ML BAG 250 MG IVPB (11:43)
[2022-04-03] MEDS: METOPROLOL TARTRATE 25 MG TABLET PO ×2 (11:44→20:11)
[2022-04-03] MEDS: LOVASTATIN 20 MG TABLET 40 MG PO (11:45)
[2022-04-03] MEDS: CLOPIDOGREL BISULFATE 75 MG TABLET PO (11:56)
[2022-04-03] MEDS: INSULIN ASPART (*BKC) 100 UNITS/ML SUB-Q ×2 (12:09→20:10)
[2022-04-03 12:13] LABS: Glucose Point of Care 256 mg/dl (65-105)
--- NOTE | 2022-04-03 12:13 | P.HPUP_ITS ---
History and Physical Update Update Date/Time: 04/03/22 12:13 Patient admitted with non-STEMI and CHF, significant rise in troponins. Currently has been weaned off BiPAP. EKG shows improvement of ST segment changes. History and Physical has been reviewed, including an updated exam of t he patient. There are NO changes in the patient's condition. Risks, benefits, and alternatives have been discussed and questions answered. Reviewed possible risks and complications with patient including breathing problems, bleeding problems, blood vessel problems, unanticipated surgery, allergic reactions, kidney problems, CVA, NH, and among others. Discussed possibility of stenting and possible need for DAPT. Discussed the possibility that if DAPT is interrupted stent thrombosis can occur resulting in heart attack and . Patient understands risks and desires to proceed. Patient agrees to proceed with procedure.
--- NOTE | 2022-04-03 12:13 | WPDMODSED ---
Moderate Sedation Note-Pt Data Patient Data Diagnosis: NSTEMI, acute CHF, COVID Present Complaint: NSTEMI, acute CHF Allergies Allergy/AdvReac Type Severity Reaction Status Date / Time No Known Allergies Allergy Verified 04/03/22 01:27 Home Medications Medication Instructions Recorded Confirmed Type albuterol sulfate 90 mcg/actuation 2 puff inhalation QID PRN 04/03/22 04/03/22 History aerosol inhaler (ProAir HFA) Shortness Of Breath Or Wheezing alogliptin 25 mg tablet 25 mg PO DAILY 04/03/22 04/03/22 History clopidogrel 75 mg tablet (Plavix) 75 mg PO DAILY 04/03/22 04/03/22 History empagliflozin 25 mg tablet 25 mg PO DAILY 04/03/22 04/03/22 History (Jardiance) ipratropium 18 mcg-albuterol 103 1 spray inhalation QID 04/03/22 04/03/22 History mcg/actuation aerosol inhaler lisinopril 40 mg tablet 40 mg PO BID 04/03/22 04/03/22 History lovastatin 40 mg tablet 40 mg PO BID 04/03/22 04/03/22 History metformin 1,000 mg tablet 1,000 mg PO BIDWMEAL 04/03/22 04/03/22 History metoprolol tartrate 100 mg tablet 100 mg PO BID 04/03/22 04/03/22 History pioglitazone 45 mg tablet 45 mg PO DAILY 04/03/22 04/03/22 History Current Medications: Active Medications Albuterol (Albuterol Sulfate Neb 2.5 Mg/3 Ml Inh) 2.5 mg INHALATION Q6HRT [facility] Aspirin (Aspirin 325 Mg Enteric Tablet) 325 mg PO QAM [facility] Last Admin: 04/03/22 10:14 Dose: 325 mg Clopidogrel Bisulfate (Clopidogrel Bisulfate 75 Mg Tablet) 75 mg PO QAM [facility] Last Admin: 04/03/22 11:56 Dose: 75 mg Dexamethasone Sodium Phosphate (Dexamethasone Sod Phos Inj 10 Mg/Ml 1 Ml Vial) 6 mg IV PUSH DAILY [facility] Stop: 04/12/22 09:01 Last Admin: 04/03/22 11:43 Dose: 6 mg Dextrose (Dextrose 50% 25 Gm/50 Ml Syringe) 12.5 gm IV PUSH PRN PRN; Protocol PRN Reason: Hypoglycemia Glucagon (Glucagon For Inj 1 Mg Vial) 1 mg IM PRN PRN; Protocol PRN Reason: Hypoglycemia Glucose (Glucose Oral Gel 15 Gm Of Glucse In 37.5 Gm Tube) 15 gm PO PRN PRN; Protocol PRN Reason: Hypoglycemia Heparin Sodium (Porcine) (Heparin Sodium 5,000 Units/Ml Vial) 4,000 units IV PUSH PRN PRN PRN Reason: aPTT less than 55 seconds Last Admin: 04/03/22 11:55 Dose: 4,000 units Heparin Sodium (Porcine) (Heparin Sodium 5,000 Units/Ml Vial) 3,000 units IV PUSH PRN PRN PRN Reason: aPTT 55 - 70 seconds Diltiazem HCl (Cardizem 100 Mg/100 Ml) 100 mg in 100 mls @ 5 mls/hr IV CONT .Q20H STA Stop: 04/03/22 21:44 Last Infusion: 04/03/22 02:08 Dose: Infused Dextrose (Dextrose 5% 1,000 Ml) 1,000 mls @ 100 mls/hr IVPB PRN PRN; Protocol PRN Reason: Hypoglycemia Heparin Sodium/Dextrose (Heparin Sodium/D5w 100 Units/Ml) 25,000 units in 250 mls @ 12 mls/hr IV CONT .[id number] [facility]; Protocol Last Titration: 04/03/22 11:54 Dose: 1,200 units/hr, 12 mls/hr Vancomycin HCl (Vancomycin 1,500 Mg/D5w 500 Ml) 1,500 mg in 500 mls @ 333.333 mls/hr IVPB Q24H [facility] Last Infusion: 04/03/22 06:47 Dose: Infused Cefepime HCl (Maxipime 1 Gm/D5w 50 Ml) 1 gm in 50 mls @ 100 mls/hr IVPB Q12HR [facility] Last Infusion: 04/03/22 11:45 Dose: Infused Azithromycin (Zithromax) 500 mg in 250 mls @ 250 mls/hr IVPB DAILY [facility] Last Infusion: 04/03/22 11:45 Dose: Infused Remdesivir () 100 mg in 250 mls @ 250 mls/hr IVPB Q24H [facility] Stop: 04/07/22 10:59 Insulin Aspart (Insulin Aspart (*Bkc) 100 Units/Ml) 4 - 8 units SUB-Q Q4HR [facility]; Protocol Last Admin: 04/03/22 12:09 Dose: 4 units Insulin Glargine (Insulin Glargine (*Bkc) 100 Units/Ml) 15 units SUB-Q HS VIOLETTA Ipratropium [place] (Ipratropium Br 0.02% Inh Soln 0.5 Mg/2.5 Ml Vial) 0.5 mg INHALATION Q6HRT VIOLETTA Lovastatin (Lovastatin 20 Mg Tablet) 40 mg PO QAM [facility] Last Admin: 04/03/22 11:45 Dose: 40 mg Metoprolol Tartrate (Metoprolol Tartrate 25 Mg Tablet) 25 mg PO Q12HR [facility] Last Admin: 04/03/22 11:44 Dose: 25 mg Perflutren Lipid Microsphere (Perflutren Lipid Microspheres 1.5 Ml Vial Diluted To 10 Ml Total Volume) 0 ml IV PUSH ONCE PRN; Protocol PRN Reason: adequate visualization
--- NOTE | 2022-04-03 13:04 | PM.IMPN ---
Progress Note: A&P Assessment and Plan (1) Acute respiratory failure: Code(s): J96.00 - Acute respiratory failure, unspecified whether with hypoxia or hypercapnia Status: Acute Assessment and Plan: Acute Respiratory failure multifactorial secondary to baseline COPD, congestive heart failure, COVID-[address] scan suggest bilateral infiltrates, elevated BNP, elevated WBC, positive COVID Currently on BiPAP which will be continue. I have started weaning his FiO2 down He received Lasix in ER. I will give another dose this morning ABG reviewed Empiric antibiotic therapy with vancomycin, cefepime and azithromycin Bronchodilators Dexamethasone and remdesivir Check echocardiogram (2) COPD (chronic obstructive pulmonary disease): Code(s): J44.9 - Chronic obstructive pulmonary disease, unspecified Status: Acute Assessment and Plan: See above (3) DKA (diabetic ketoacidosis): Code(s): E11.10 - Type 2 diabetes mellitus with ketoacidosis without coma Status: Acute Assessment and Plan: He was given Lantus and subcutaneous insuli I will continue with Lantus and change sliding scale to q.4 hours and high scale. If blood sugars are not controlled with this subcutaneous insulin, he may still need insulin infusion Hold p.o. diabetic meds at this time (4) T2DM (type 2 diabetes mellitus): Code(s): E11.9 - Type 2 diabetes mellitus without complications Status: Acute Assessment and Plan: See above (5) COVID-19: Code(s): U07.1 - COVID-19 Status: Acute Assessment and Plan: Patient was tested positive for COVID-19 although his picture is mixed and not classical for COVID-19 pneumonia Isolation Dexamethasone and remdesivir (6) Elevated serum creatinine: Code(s): R79.89 - Other specified abnormal findings of blood chemistry Status: Acute Assessment and Plan: Patient presented with creatinine of 1.4. Repeat creatinine is 1.2 this morning Continue to monitor (7) NSTEMI (non-ST elevated myocardial infarction): Code(s): I21.4 - Non-ST elevation (NSTEMI) myocardial infarction Status: Acute Assessment and Plan: Patient presented with elevated troponin, abnormal EKG and chest discomfort. Repeat troponin is significantly elevated Cardiology consulted Plan for catheterization. Continue heparin infusion (8) Essential hypertension: Code(s): I10 - Essential (primary) hypertension Status: Acute Assessment and Plan: Continue beta-cortez Hold lisinopril at this time until renal function stabilizes (9) Congestive heart failure: Code(s): I50.9 - Heart failure, unspecified Status: Acute Assessment and Plan: Check echocardiogram Lasix IV Subjective Date/time seen: 04/03/22 13:04 Currently on BiPAP. No new complaints. Exam Narrative: General: Pt is alert awake and on BiPAP Lungs/Chest: Trachea central bibasilar crackles present, patient has BiPAP mask on Cardiac: RRR. Normal S1 S2. No murmurs Circulation: Feet are warm Abdomen: Normal bowel sounds. Obese Soft. NT. ND. Extremities: No clubbing, cyanosis or edema. Warm Large bruise on Right arm from infiltrated IV : Pan in place Neurologic: Follows commands. Moves all 4 extremities PERRL AO x3 Skin: No Rash Const: General: cooperative, comfortable, well developed, alert, awake, acute distress mild, ill appearing acutely and other ( on BiPAP) Nutritional Appearance: average body habitus Orientation/consciousness: patient oriented x3 HENMT: Head: normal to inspection, normocephalic and atraumatic Ears: hearing grossly normal bilaterally Face and sinus: normal facial exam Eyes: General: appearance normal, both eyes and all related structures Pupils: Equal, round and reactive pupils present EOM: EOMs intact bilaterally Other: BiPAP mask on Neck: Neck: full ROM, no lymphadenopathy and n
--- NOTE | 2022-04-03 14:17 | PM.OP ---
Procedure Note - Brief Procedure Note - Brief Date of procedure: 04/03/22 Pre-op diagnosis: COVID, elevated trop, NSTEMI, hypoxia Surgeon: Fiordaliza Henao MD
--- NOTE | 2022-04-03 14:19 | WPDCARDPROC ---
Cardiac Cath Procedure Note Date of procedure:: 04/03/22 Performing physician:: Fiordaliza Henao MD Indication:: NSTEMI, CHF Brief clinical history:: 72-year-old male with history of hypertension diabetes, and prior strokes, who has had progressive angina and shortness of breath. Yesterday he had severe shortness of breath and intense chest burning that that did not resolve with rest and he came to the emergency room with respiratory failure requiring BiPAP. He appears to have a non-STEMI, with troponin going up to 38. The ST and T-wave changes noted on admission have normalized. His echo showed ejection fraction 25-30% with segmental wall motion abnormalities. In addition, he had COVID about 2 months ago and tested positive for COVID on this admission. Also h/o HTN, DM, COPD, strokes. Procedure Procedure performed:: Conscious sedation Left heart catheterization Selective coronary angiography Insertion of an intra-aortic balloon pump Sedation/Medication given:: Conscious sedation: The patient has no known prior history of adverse affects of conscious sedation. Oropharynx was clear. The patient is deemed a good candidate for conscious sedation. Conscious sedation began at: 13 10 Conscious sedation ended at: 14 05 Total conscious sedation time: 55 minutes Medications: Versed 1 mg, fentanyl 25 mcg IV push The patient had continuous hemodynamic monitoring, and was also continuously monitored by: Shonda Woods The patient tolerated conscious sedation well. Access site:: right femoral artery Estimated blood loss:: 5 cc Procedure note:: Catheters: 5 [place] arterial sheath, 5 [place] 4 cm right and left Lary catheters, 5 [place] pigtail catheter, 8 Fr sheath, IABP Detailed procedure: After informed consent the patient brought to the clinical laboratory aide and the right femoral area was prepped and draped in the usual fashion. He was placed back on BiPAP. After conscious sedation and local anesthesia the right femoral artery was punctured and cannulated with the arterial sheath. Selective Coronary angiography was performed with the coronary catheters in multiple projections. These were withdrawn. The pigtail catheter was advanced into the central circulation and left ventricle for pressure measurements. This was withdrawn. Later the arterial sheath was Exchanged for a 8 [place] arterial sheath and intra-aortic balloon pump was placed in the proximal descending thoracic aorta under fluoroscopic guidance. There was good augmentation and the patient's heart rate improved from 110-120 BPM to 87 BPM. This was sutured in place and a sterile dressing applied. The patient tolerated the procedure well with no chest pain and no complications. Estimated blood loss was negligible. Findings:: Pressures: Aortic pressure 95/60 mmHg LV pressure 95/22 mmHg Left coronary artery : The proximal vessels were all heavily calcified. The left main had a 60% stenosis. The Left anterior descending gave rise to a septal branch and then there was a complex 95% to 99% stenosis of the proximal/mid Left anterior descending involving the 1st diagonal. After the 2nd diagonal the Left anterior descending was subtotally occluded. There was some faintly visualized collateral flow from the right coronary artery. The ostial circumflex was 95-99% stenosis. The circumflex gave rise to 3 obtuse marginals which were minimally diseased, although the 2nd OM had a 40-50% stenosis. Right coronary artery: The dominant right coronary artery is also a heavily calcified proximally and had a long 60% stenosis of the proximal to mid segment. Faintly visualized collaterals were seen going to the mid to distal Left anterior descending through the septal branches. Left ventriculogram: Not performed Conclusion:: Severe multivessel coronary disease with 60% left main stenosis, 95-99% stenosis of the proximal Left anterior descending involving the 1st diagona
[2022-04-03] MEDS: ALBUTEROL SULFATE NEB 2.5 MG/3 ML INH INHALATION ×2 (15:51→20:17)
[2022-04-03] MEDS: IPRATROPIUM BR 0.02% INH SOLN 0.5 MG/2.5 ML VIAL INHALATION ×2 (15:51→20:17)
[2022-04-03 17:03] LABS: Glucose Point of Care 190 mg/dl (65-105)
[2022-04-03 18:24] LABS: Appearance Urine Clear (Clear); Bilirubin Urine Negative (Negative); Blood Urine 2+ (Negative); Color Urine Yellow (Yellow); Glucose Urine UA 3+ mg/dL (Negative); Ketones Urine Negative (Negative); Leukocyte Esterase Ur Negative LEU/UL (NEGATIVE); Nitrate Urine Negative (Negative); Protein Urine Negative (Negative); Specific Grav Ur <= 1.005 (1.001-1.035); Urobilinogen Urine 0.2 mg/dL (<2.0)
[2022-04-03 18:28] LABS: Mucus Urine Rare /lpf; Squamous Epithelial Cell Urine Rare /hpf (Few)
[2022-04-03 18:31] LABS: Add Urine Microscopic? YES
[2022-04-03] MEDS: INSULIN GLARGINE (*BKC) 100 UNITS/ML 15 UNITS SUB-Q (20:10)
[2022-04-03 20:27] LABS: Glucose Point of Care 245 mg/dl (65-105)
[2022-04-03 21:19] LABS: Partial Thromboplastin Time 100.7 SECONDS (22.3-36.8)
[2022-04-04] VITALS (46 sets, daily range): BP systolic 95–132; BP diastolic 49–91; PULSE 75–99; RESP 14–25; TEMP 36.4–36.8; O2SAT 91–97
[2022-04-04 00:18] LABS: Glucose Point of Care 161 mg/dl (65-105)
[2022-04-04] MEDS: ALBUTEROL SULFATE NEB 2.5 MG/3 ML INH INHALATION ×4 (02:32→20:14)
[2022-04-04] MEDS: IPRATROPIUM BR 0.02% INH SOLN 0.5 MG/2.5 ML VIAL INHALATION ×4 (02:32→20:14)
[2022-04-04 03:51] LABS: Basophils Percent Auto 0.3 % (0.2-1.2); Hematocrit 41.4 % (42.0-52.0); Immature Granulocyte Absolute 0.05 K/mm3 (0.00-0.031); Immature Granulocyte Percent A 0.4 % (0-0.5); Lymphocytes Absolute Auto 0.65 K/mm3 (0.9-3.2); Lymphocytes Percent Auto 4.8 % (18.3-44.2); Mean Corpuscular HGB Conc 31.4 g/dl (32-36); Mean Corpuscular Hemoglobin 32.1 pg (26-34); Mean Corpuscular Volume 102.2 fl (80-100); Mean Platelet Volume 10.7 fl (7.4-10.4); Monocytes Absolute Auto 0.8 K/mm3 (0.1-0.6); Monocytes Percent Auto 5.9 % (2.6-8.5); Neutrophils Absolute Auto 11.9 K/mm3 (1.3-6.7); Neutrophils Percent Auto 88.6 % (45.5-73.1); Platelet Count Result 196 k/mm3 (150-375); Red Blood Count 4.05 M/mm3 (4.6-6.20); Red Cell Distribution Width 13.8 % (11.5-14.5); White Blood Count 13.5 K/mm3 (4.5-10.0)
[2022-04-04 04:01] LABS: INR 1.3; Prothrombin Time 15.3 Seconds (11.1-14.7)
[2022-04-04 04:02] LABS: Alanine Aminotransferase 32 U/L (6-50); Alanine Aminotransferase 33 U/L (6-50); Albumin Level 3.7 g/dL (3.5-5.1); Alkaline Phosphatase 54 U/L (38-126); Anion Gap 6 mmol/L (8-16); Aspartate Amino Transferase 175 U/L (17-59); Bilirubin,Total 0.6 mg/dL (0.2-1.3); Blood Urea Nitrogen 34 mg/dL (9-20); Carbon Dioxide 28 mmol/L (22-30); Chloride 103 mmol/L (98-107); Estimated CRCL calculation 56 ml/min; Estimated Glomerular Filt Rate > 60; Glucose 154 mg/dL (65-110); Magnesium 2.1 mg/dL (1.6-2.3); Potassium 4.1 mmol/L (3.4-5.0); Sodium 137 mmol/L (137-145)
[2022-04-04 04:03] LABS: Partial Thromboplastin Time 92.8 SECONDS (22.3-36.8)
[2022-04-04] MEDS: HEPARIN SOD/D5W 100 UNITS/ML 25,000 UNITS/250 ML BAG 12 UNITS IV CONT (04:11)
[2022-04-04 04:30] LABS: Glucose Point of Care 159 mg/dl (65-105)
[2022-04-04 08:00] LABS: Hematocrit 39.8 % (42.0-52.0); Hemoglobin 12.4 g/dL (14.0-18.0); Mean Corpuscular HGB Conc 31.2 g/dl (32-36); Mean Corpuscular Hemoglobin 32.5 pg (26-34); Mean Corpuscular Volume 104.5 fl (80-100); Mean Platelet Volume 10.8 fl (7.4-10.4); Platelet Count Result 184 k/mm3 (150-375); Red Blood Count 3.81 M/mm3 (4.6-6.20); White Blood Count 14.2 K/mm3 (4.5-10.0)
[2022-04-04] MEDS: ASPIRIN 325 MG ENTERIC TABLET PO (08:15)
[2022-04-04] MEDS: METOPROLOL TARTRATE 25 MG TABLET PO ×2 (08:16→20:09)
[2022-04-04] MEDS: LOVASTATIN 20 MG TABLET 40 MG PO (08:16)
--- NOTE | 2022-04-04 08:56 | WPDINTPN ---
Progress Note: A&P Assessment and Plan (1) Acute respiratory failure: Code(s): J96.00 - Acute respiratory failure, unspecified whether with hypoxia or hypercapnia Status: Acute Assessment and Plan: Acute Respiratory failure multifactorial secondary to baseline COPD, congestive heart failure, COVID-[address] scan suggest bilateral infiltrates, elevated BNP, elevated WBC, positive COVID On presentation patient was placed on BiPAP He received Lasix yesterday. Since then he has clinically improved and he is now on nasal cannula Empiric antibiotic therapy with cefepime and azithromycin. Continue vancomycin Continue Bronchodilators Continue Dexamethasone and remdesivir Echocardiogram done - see below (2) COPD (chronic obstructive pulmonary disease): Code(s): J44.9 - Chronic obstructive pulmonary disease, unspecified Status: Acute Assessment and Plan: See above (3) DKA (diabetic ketoacidosis): Code(s): E11.10 - Type 2 diabetes mellitus with ketoacidosis without coma Status: Acute Assessment and Plan: But patient presented his blood sugar was in 400 and beta hydroxybutyrate was mildly elevated. He had a positive anion gap. He was given Lantus and subcutaneous insulin. He was not started on insulin infusion Repeat check showed anion gap had closed. I will continue with Lantus and change sliding scale at this time If blood sugars are not controlled with this subcutaneous insulin, he may still need insulin infusion Hold p.o. diabetic meds at this time (4) T2DM (type 2 diabetes mellitus): Code(s): E11.9 - Type 2 diabetes mellitus without complications Status: Acute Assessment and Plan: See above (5) COVID-19: Code(s): U07.1 - COVID-19 Status: Acute Assessment and Plan: Patient was tested positive for COVID-19 although his picture is mixed and not classical for COVID-19 pneumonia, he meets the criteria for treatment Continue Isolation Continue Dexamethasone and remdesivir (6) Elevated serum creatinine: Code(s): R79.89 - Other specified abnormal findings of blood chemistry Status: Acute Assessment and Plan: Patient presented with creatinine of 1.4. Creatinine has now improved into a normal range Continue to monitor (7) NSTEMI (non-ST elevated myocardial infarction): Code(s): I21.4 - Non-ST elevation (NSTEMI) myocardial infarction Status: Acute Assessment and Plan: Patient presented with elevated troponin, abnormal EKG and chest discomfort. Repeat troponin was significantly elevated 04/03 patient underwent cardiac catheterization which showed Severe multivessel coronary disease with 60% left main stenosis, 95-99% stenosis of the proximal Left anterior descending involving the 1st diagonal, subtotal occlusion of the mid Left anterior descending which is filled faintly via septal collaterals from the right coronary artery.? 95-99% stenosis of the ostial circumflex, 40-50% stenosis of the OM2, 60% stenosis of the right coronary artery. Heavily calcified proximal vessels Ejection fraction 25-30% by echo Elevated left ventricular end-diastolic pressure Patient is now awaiting transfer to [facility] for CABG An aortic balloon pump was placed which is set to 1:1 which will be continued Continue heparin infusion Continue aspirin and beta-cortez Continue statin Echocardiogram reviewed Summary ? 1. Complete two-dimensional, color flow and Doppler transthoracic echocardiogram is performed. ? 2. Moderate left ventricular enlargement with mild hypertrophy.? Severe hypokinesi s of the mid and distal anterolateral and anteroseptal segements as well as apex, with moderate hypokinesis of the inferior wall.? EF 30%? Grade 2 diastolic dysfunxtion is present. ? 3. Left atrial chamber dimension is mildly enlarged. ? 4. No pulmonary hypertension, estimated pulmonary arterial systolic pressure
[2022-04-04 09:12] LABS: Glucose Point of Care 159 mg/dl (65-105)
--- NOTE | 2022-04-04 09:13 | PM.PNCARD ---
Progress Note: A&P Assessment and Plan (1) NSTEMI (non-ST elevated myocardial infarction): Code(s): I21.4 - Non-ST elevation (NSTEMI) myocardial infarction Status: Acute (2) COVID-19: Code(s): U07.1 - COVID-19 Status: Acute Plan 72-year-old man with severe coronary artery disease. Because of the cardiac catheterization findings surgical revascularization has been recommended. He is not having any ischemic chest pain with intra-aortic balloon pump in place. Awaiting availability of bed in the ICU for transfer to [facility]. Alden Dixon MD LOCATED WITHIN [facility] Subjective Date/time seen: date of service:04/04/22 09:13 Interval history: Follow-up visit in this 72-year-old man with: Critical coronary artery disease presenting with non ST elevation [place]. Patient underwent angiography yesterday with left main, ostial circumflex and proximal LAD stenosis. Intra-aortic balloon pump placed. No longer having any ischemic chest pain. Awaiting bed at [facility] for cardiothoracic surgery consultation. Exam Const: General: comfortable and no acute distress Other: Only complaint is lower chest, epigastric discomfort with cough HENMT: Mouth: Yes moist mucous membranes Eyes: Sclera: sclerae normal Neck: Neck: supple and no JVD Resp: Effort & Inspection: normal respiratory effort Other: coarse breath sounds throughout both lung finnegan Cardio: Rate: regular rate Rhythm: regular rhythm GI: GI Palp: Yes Soft to palpation Auscultation: normal bowel sounds Urinary Catheter: Urinary Catheter: patent and draining Skin: General skin exam: normal color Neuro: Other: alert and oriented x3 Extrem: Other: puncture site looks fine no hematoma Objective Data Vital Signs Vital Signs: Vital Signs - 24 hr 04/03/22 11:25 04/03/22 11:44 04/03/22 11:54 Temperature 34.9 C L Pulse Rate 114 H 114 H Respiratory Rate 25 H Blood Pressure 102/67 Pulse Oximetry 94 92 Oxygen Delivery High Flow Nasal Cannula Oxygen Flow Rate 3 04/03/22 12:40 04/03/22 14:25 04/03/22 10:00 Temperature Pulse Rate 104 H 118 H Respiratory Rate 35 H Blood Pressure Pulse Oximetry 98 97 Oxygen Delivery BiPAP High Flow Nasal Cannula Oxygen Flow Rate 3 04/03/22 12:00 04/03/22 15:51 04/03/22 16:12 Temperature Pulse Rate 112 H 88 89 Respiratory Rate 22 H 20 Blood Pressure Pulse Oximetry Oxygen Delivery Oxygen Flow Rate 04/03/22 16:11 04/03/22 12:00 04/03/22 15:00 Temperature 36.9 C Pulse Rate 92 95 Respiratory Rate 25 H 33 H Blood Pressure 133/74 121/82 Pulse Oximetry 95 92 94 Oxygen Delivery High Flow Nasal Cannula Oxygen Flow Rate 3 04/03/22 16:00 04/03/22 16:00 04/03/22 16:00 Temperature 36.9 C Pulse Rate 88 88 Respiratory Rate 21 H Blood Pressure 133/74 Pulse Oximetry 97 100 Oxygen Delivery High Flow Nasal Cannula Oxygen Flow Rate 3 04/03/22 18:00 04/03/22 17:00 04/03/22 18:00 Temperature Pulse Rate 91 91 91 Respiratory Rate 22 H 24 H Blood Pressure 122/81 123/70 Pulse Oximetry 96 96 Oxygen Delivery Oxygen Flow Rate 04/03/22 19:00 04/03/22 20:11 04/03/22 20:20 Temperature Pulse Rate 98 96 Respiratory Rate 19 Blood Pressure 112/67 Pulse Oximetry 97 97 Oxygen Delivery High Flow Nasal Cannula Oxygen Flow Rate 3 04/03/22 20:22 04/03/22 20:00 04/03/22 20:00 Temperature 36.9 C Pulse Rate 93 89 Respiratory Rate 17 22 H Blood Pressure 106/62 Pulse Oximetry 95 95 Oxygen Delivery Nasal Cannula Oxygen Flow Rate 2 04/03/22 21:00 04/03/22 20:00 04/03/22 22:00 Temperature Pulse Rate 90 95 87 Respiratory Rate 20 20 Blood Pressure 119/68 112/85 Pulse Oximetry 95 96 Oxygen Delivery Oxygen Flow Rate 04/03/22 22:00 04/03/22 23:00 04/04/22 00:00 Temperature 36.8 C Pulse Rate 92 78 77 Respiratory Rate 20 19 B
[2022-04-04] MEDS: REMDESIVIR 100 MG/NS 250 ML 100 MG/250 ML BAG 250 MG IVPB (09:48)
--- NOTE | 2022-04-04 11:04 | PCNFU ---
Nutrition Follow-Up Complete: Goal: Pt current nutrition is . Nutrition recommendation: Last recorded weight is 90.3 kg. Bowel Motility: Labs Reviewed: Meds Noted: Skin: Additional Notes:
--- NOTE | 2022-04-04 11:05 | PCFNICU ---
ICU Rounding Note: Pt current nutrition is Heart Healthy Last recorded weight is 90.3 kg, down from 91.5 kg on admit. Bowel Motility: +BM reported 04/04 Labs Reviewed:BUN 34, GFR 6, Hct 39.8, Hgb 12.4 Meds Noted:Vancomycin, Heparin, Maxipime, Zithromax, Decadron, Lantus, Atrovent, Lovastatin, Lopressor, Remdesivir. Skin: WNL Additional Notes: Patient to cardiac cath yesterday. Awaiting bed transfer for cardiothoracic surgery consultation. Patient is tolerating heart healthy diet. Agree with diet orders. Following daily in ICU rounds.
[2022-04-04 11:59] LABS: Glucose Point of Care 176 mg/dl (65-105)
--- NOTE | 2022-04-04 12:47 | PM.IMPN ---
Progress Note: A&P Assessment and Plan (1) Acute respiratory failure: Code(s): J96.00 - Acute respiratory failure, unspecified whether with hypoxia or hypercapnia Status: Acute Assessment and Plan: Acute Respiratory failure multifactorial secondary to baseline COPD, congestive heart failure, COVID-[address] scan suggest bilateral infiltrates, elevated BNP, elevated WBC, positive COVID Currently on BiPAP which will be continue. I have started weaning his FiO2 down He received Lasix in ER. I will give another dose this morning ABG reviewed Empiric antibiotic therapy with vancomycin, cefepime and azithromycin Bronchodilators Dexamethasone and remdesivir Check echocardiogram (2) COPD (chronic obstructive pulmonary disease): Code(s): J44.9 - Chronic obstructive pulmonary disease, unspecified Status: Acute Assessment and Plan: See above (3) DKA (diabetic ketoacidosis): Code(s): E11.10 - Type 2 diabetes mellitus with ketoacidosis without coma Status: Acute Assessment and Plan: But patient presented his blood sugar was in 400 and beta hydroxybutyrate was mildly elevated. He had a positive anion gap. He was given Lantus and subcutaneous insulin This morning I repeated his BMP evaluate him for for insulin infusion. Anion gap has closed I will continue with Lantus and change sliding scale to q.4 hours and high scale. If blood sugars are not controlled with this subcutaneous insulin, he may still need insulin infusion Hold p.o. diabetic meds at this time (4) T2DM (type 2 diabetes mellitus): Code(s): E11.9 - Type 2 diabetes mellitus without complications Status: Acute Assessment and Plan: See above (5) COVID-19: Code(s): U07.1 - COVID-19 Status: Acute Assessment and Plan: Patient was tested positive for COVID-19 although his picture is mixed and not classical for COVID-19 pneumonia Isolation Dexamethasone and remdesivir (6) Elevated serum creatinine: Code(s): R79.89 - Other specified abnormal findings of blood chemistry Status: Acute Assessment and Plan: Patient presented with creatinine of 1.4. Repeat creatinine is 1.2 this morning Continue to monitor (7) NSTEMI (non-ST elevated myocardial infarction): Code(s): I21.4 - Non-ST elevation (NSTEMI) myocardial infarction Status: Acute Assessment and Plan: Patient presented with elevated troponin, abnormal EKG and chest discomfort. Repeat troponin is significantly elevated Cardiology consulted Awaiting transfer to outside hospital (8) Essential hypertension: Code(s): I10 - Essential (primary) hypertension Status: Acute Assessment and Plan: Continue beta-cortez Hold lisinopril at this time until renal function stabilizes (9) Congestive heart failure: Code(s): I50.9 - Heart failure, unspecified Status: Acute Assessment and Plan: Check echocardiogram Lasix IV Subjective Date/time seen: 04/04/22 12:47 No complaints of chest pain. still awaiting transfer Exam Narrative: General: Pt is alert awake and in no distress Lungs/Chest: Trachea central few bibasilar crackles present, Cardiac: RRR. Normal S1 S2. No murmurs Circulation: Feet are warm pulses are palpable Abdomen: Normal bowel sounds. Obese Soft. NT. ND. Extremities: No clubbing, cyanosis or edema. Warm Large bruise on Right arm from infiltrated IV but no hematoma or swelling Right groin has intra-aortic balloon pump with no hematoma swelling or bruising around it : Pan in place Neurologic: Follows commands. Moves all 4 extremities PERRL AO x3 Skin: No Rash Const: General: cooperative, comfortable, well developed, alert, awake, acute distress mild, ill appearing acutely and other ( on BiPAP) Nutritional Appearance: average body habitus Orientation/consciousness: patient oriented x3 HENMT: Head: normal to inspe
[2022-04-04] MEDS: INSULIN ASPART (*BKC) 100 UNITS/ML SUB-Q (16:06)
[2022-04-04 16:07] LABS: Glucose Point of Care 240 mg/dl (65-105)
[2022-04-04] MEDS: INSULIN GLARGINE (*BKC) 100 UNITS/ML 15 UNITS SUB-Q (20:08)
[2022-04-04 20:32] LABS: Glucose Point of Care 186 mg/dl (65-105)
[2022-04-04 21:38] LABS: Hemoglobin 11.9 g/dL (14.0-18.0); Mean Corpuscular HGB Conc 31.3 g/dl (32-36); Mean Corpuscular Hemoglobin 32.1 pg (26-34); Mean Corpuscular Volume 102.4 fl (80-100); Mean Platelet Volume 10.6 fl (7.4-10.4); Platelet Count Result 165 k/mm3 (150-375); Red Blood Count 3.71 M/mm3 (4.6-6.20); Red Cell Distribution Width 13.7 % (11.5-14.5)
[2022-04-04 22:01] LABS: Immunochemical Fecal Occult Bl Negative (N)
[2022-04-04 22:02] LABS: IFOB Positive Control Positive
[2022-04-05] VITALS (25 sets, daily range): BP systolic 111–149; BP diastolic 56–112; PULSE 64–92; RESP 15–30; TEMP 36.3–37.5; O2SAT 91–97
[2022-04-05] MEDS: IPRATROPIUM BR 0.02% INH SOLN 0.5 MG/2.5 ML VIAL INHALATION ×3 (02:55→13:42)
[2022-04-05] MEDS: ALBUTEROL SULFATE NEB 2.5 MG/3 ML INH INHALATION ×3 (02:55→13:43)
[2022-04-05] MEDS: HEPARIN SOD/D5W 100 UNITS/ML 25,000 UNITS/250 ML BAG 12 UNITS IV CONT (03:56)
[2022-04-05 04:23] LABS: Hematocrit 35.8 % (42.0-52.0); Hemoglobin 11.1 g/dL (14.0-18.0); Mean Corpuscular Hemoglobin 32.1 pg (26-34); Mean Corpuscular Volume 103.5 fl (80-100); Platelet Count Result 154 k/mm3 (150-375); Red Blood Count 3.46 M/mm3 (4.6-6.20); Red Cell Distribution Width 13.8 % (11.5-14.5); White Blood Count 11.4 K/mm3 (4.5-10.0)
[2022-04-05 04:32] LABS: INR 1.3; Prothrombin Time 15.3 Seconds (11.1-14.7)
[2022-04-05 04:34] LABS: Alanine Aminotransferase 25 U/L (6-50); Albumin Level 3.4 g/dL (3.5-5.1); Alkaline Phosphatase 46 U/L (38-126); Anion Gap 7 mmol/L (8-16); Aspartate Amino Transferase 77 U/L (17-59); Bilirubin,Total 0.6 mg/dL (0.2-1.3); Blood Urea Nitrogen 39 mg/dL (9-20); Calcium 8.8 mg/dL (8.4-10.2); Carbon Dioxide 25 mmol/L (22-30); Chloride 103 mmol/L (98-107); Estimated CRCL calculation 68 ml/min; Estimated Glomerular Filt Rate > 60; Glucose 140 mg/dL (65-110); Magnesium 2.2 mg/dL (1.6-2.3); Phosphorus 3.8 mg/dL (2.5-4.5); Sodium 135 mmol/L (137-145)
[2022-04-05 04:35] LABS: Partial Thromboplastin Time 73.6 SECONDS (22.3-36.8)
--- NOTE | 2022-04-05 08:22 | WPDINTPN ---
Progress Note: A&P Assessment and Plan (1) Acute respiratory failure: Code(s): J96.00 - Acute respiratory failure, unspecified whether with hypoxia or hypercapnia Status: Acute Assessment and Plan: Presented with Acute Respiratory failure multifactorial secondary to baseline COPD, congestive heart failure, COVID-[address] scan suggest bilateral infiltrates, elevated BNP, elevated WBC, positive COVID He was on BiPAP which has now been weaned. Maintaining his oxygenation on nasal cannula and only requiring 1-2 L nasal cannula He was given Lasix in ER and presentation but further Lasix doses have been held Most recent ABG reviewed Empiric antibiotic therapy with vcefepime and azithromycin Bronchodilators Dexamethasone and remdesivir Reviewed echocardiogram (2) COPD (chronic obstructive pulmonary disease): Code(s): J44.9 - Chronic obstructive pulmonary disease, unspecified Status: Acute Assessment and Plan: See above (3) DKA (diabetic ketoacidosis): Code(s): E11.10 - Type 2 diabetes mellitus with ketoacidosis without coma Status: Acute Assessment and Plan: Patient presented his blood sugar was in 400 and beta hydroxybutyrate was mildly elevated.? He had a positive anion gap. He was given Lantus and subcutaneous insulin.? He was not started on insulin infusion Repeat check showed anion gap had closed. I will continue with Lantus and change sliding scale at this time If blood sugars are not controlled with this subcutaneous insulin, he may still need insulin infusion Hold p.o. diabetic meds at this time (4) T2DM (type 2 diabetes mellitus): Code(s): E11.9 - Type 2 diabetes mellitus without complications Status: Acute Assessment and Plan: See above (5) COVID-19: Code(s): U07.1 - COVID-19 Status: Acute Assessment and Plan: Patient was tested positive for COVID-19 although his picture is mixed and not classical for COVID-19 pneumonia, he meets the criteria for treatment Continue Isolation Continue Dexamethasone and remdesivir (6) Elevated serum creatinine: Code(s): R79.89 - Other specified abnormal findings of blood chemistry Status: Acute Assessment and Plan: Patient presented with creatinine of 1.4.? Creatinine has now improved into a normal range Continue to monitor (7) NSTEMI (non-ST elevated myocardial infarction): Code(s): I21.4 - Non-ST elevation (NSTEMI) myocardial infarction Status: Acute Assessment and Plan: Patient presented with elevated troponin, abnormal EKG and chest discomfort. Repeat troponin was significantly elevated 04/03 patient underwent cardiac catheterization which showed Severe multivessel coronary disease with 60% left main stenosis, 95-99% stenosis of the proximal Left anterior descending involving the 1st diagonal, subtotal occlusion of the mid Left anterior descending which is filled faintly via septal collaterals from the right coronary artery.? 95-99% stenosis of the ostial circumflex, 40-50% stenosis of the OM2, 60% stenosis of the right coronary artery. Heavily calcified proximal vessels Ejection fraction 25-30% by echo Elevated left ventricular end-diastolic pressure Patient is now awaiting transfer to [facility] for CABG An aortic balloon pump was placed which is set to 1:1 which will be continued Continue heparin infusion Continue aspirin and beta-cortez Continue statin Echocardiogram reviewed Summary ? 1. Complete two-dimensional, color flow and Doppler transthoracic echocardiogram is performed. ? 2. Moderate left ventricular enlargement with mild hypertrophy.? Severe hypokinesi s of the mid and distal anterolateral and anteroseptal segements as well as apex, with moderate hypokinesis of the inferior wall.? EF 30%? Grade 2 diastolic dysfunxtion is present. ? 3. Left atrial chamber dimension is mildly enlarged. ? 4. No pulmonary hyperten
[2022-04-05] MEDS: ASPIRIN 325 MG ENTERIC TABLET PO (08:49)
[2022-04-05] MEDS: LOVASTATIN 20 MG TABLET 40 MG PO (08:49)
[2022-04-05] MEDS: METOPROLOL TARTRATE 25 MG TABLET PO (08:49)
[2022-04-05] MEDS: PANTOPRAZOLE 40 MG TABLET PO (11:17)
[2022-04-05] MEDS: REMDESIVIR 100 MG/NS 250 ML 100 MG/250 ML BAG 250 MG IVPB (11:17)
--- NOTE | 2022-04-05 11:21 | PM.IMPN ---
Progress Note: A&P Assessment and Plan (1) Acute respiratory failure: Code(s): J96.00 - Acute respiratory failure, unspecified whether with hypoxia or hypercapnia Status: Acute Assessment and Plan: Presented with Acute Respiratory failure multifactorial secondary to baseline COPD, congestive heart failure, COVID-[address] scan suggest bilateral infiltrates, elevated BNP, elevated WBC, positive COVID He was on BiPAP which has now been weaned. Maintaining his oxygenation on nasal cannula and only requiring 1-2 L nasal cannula He was given Lasix in ER and presentation but further Lasix doses have been held Most recent ABG reviewed Empiric antibiotic therapy with vcefepime and azithromycin Bronchodilators Dexamethasone and remdesivir Reviewed echocardiogram (2) COPD (chronic obstructive pulmonary disease): Code(s): J44.9 - Chronic obstructive pulmonary disease, unspecified Status: Acute Assessment and Plan: See above (3) DKA (diabetic ketoacidosis): Code(s): E11.10 - Type 2 diabetes mellitus with ketoacidosis without coma Status: Acute Assessment and Plan: Patient presented his blood sugar was in 400 and beta hydroxybutyrate was mildly elevated.? He had a positive anion gap. He was given Lantus and subcutaneous insulin.? He was not started on insulin infusion Repeat check showed anion gap had closed. I will continue with Lantus and change sliding scale at this time If blood sugars are not controlled with this subcutaneous insulin, he may still need insulin infusion Hold p.o. diabetic meds at this time (4) T2DM (type 2 diabetes mellitus): Code(s): E11.9 - Type 2 diabetes mellitus without complications Status: Acute Assessment and Plan: See above (5) COVID-19: Code(s): U07.1 - COVID-19 Status: Acute Assessment and Plan: Patient was tested positive for COVID-19 although his picture is mixed and not classical for COVID-19 pneumonia, he meets the criteria for treatment Continue Isolation Continue Dexamethasone and remdesivir (6) Elevated serum creatinine: Code(s): R79.89 - Other specified abnormal findings of blood chemistry Status: Acute Assessment and Plan: Creatinine has now improved into a normal range Continue to monitor (7) NSTEMI (non-ST elevated myocardial infarction): Code(s): I21.4 - Non-ST elevation (NSTEMI) myocardial infarction Status: Acute Assessment and Plan: Patient presented with elevated troponin, abnormal EKG and chest discomfort. Repeat troponin was significantly elevated 04/03 patient underwent cardiac catheterization which showed Severe multivessel coronary disease with 60% left main stenosis, 95-99% stenosis of the proximal Left anterior descending involving the 1st diagonal, subtotal occlusion of the mid Left anterior descending which is filled faintly via septal collaterals from the right coronary artery.? 95-99% stenosis of the ostial circumflex, 40-50% stenosis of the OM2, 60% stenosis of the right coronary artery. Heavily calcified proximal vessels Ejection fraction 25-30% by echo Elevated left ventricular end-diastolic pressure Patient is now awaiting transfer to [facility] for CABG (8) Essential hypertension: Code(s): I10 - Essential (primary) hypertension Status: Acute Assessment and Plan: Blood pressure is adequately controlled at this time ?Continue beta-cortez lisinopril was held due to an elevation in creatinine at the presentation (9) Congestive heart failure: Code(s): I50.9 - Heart failure, unspecified Status: Acute Assessment and Plan: See above (10) Anemia: Code(s): D64.9 - Anemia, unspecified Status: Acute Assessment and Plan: Patient has been showing a gradual drop in hemoglobin since admission.? Drop is significant enough that cannot be explained from bru
[2022-04-05 11:45] LABS: Lactate Dehydrogenase 536 U/L (120-246)
--- NOTE | 2022-04-05 12:32 | PM.PNCARD ---
Progress Note: A&P Assessment and Plan (1) NSTEMI (non-ST elevated myocardial infarction): Code(s): I21.4 - Non-ST elevation (NSTEMI) myocardial infarction Status: Acute Assessment and Plan: Stable, asymptomatic on balloon pump. Continue heparin. Awaiting ICU bed at [facility] for cardiothoracic surgical consultation due to left main and multivessel CAD and need for CABG. Hold clopidogrel. Continue aspirin, statin, metoprolol. Patient remains critically ill but hemodynamically stable at this time. Maintaining sinus rhythm without significant ventricular arrhythmias on telemetry. Continue to monitor closely. (2) COVID-19: Code(s): U07.1 - COVID-19 Status: Acute Assessment and Plan: Remains in isolation. Supportive management per primary service. Remains on antibiotics with azithromycin and cefepime. Continue remdesivir. (3) Cardiomyopathy: Code(s): I42.9 - Cardiomyopathy, unspecified Status: Acute Assessment and Plan: Severe LV systolic dysfunction EF 25% on balloon pump. Patient high risk with multi-vessel CAD in setting acute infarction. Continue aggressive supportive care. (4) Anemia: Code(s): D64.9 - Anemia, unspecified Status: Acute Assessment and Plan: Follow H&H closely. Slow decline over the past several days. No active signs of bleeding. (5) T2DM (type 2 diabetes mellitus): Code(s): E11.9 - Type 2 diabetes mellitus without complications Status: Acute Assessment and Plan: Continue management. Management per primary service Plan 72-year-old man with severe coronary artery disease. Because of the cardiac catheterization findings surgical revascularization has been recommended. He is not having any ischemic chest pain with intra-aortic balloon pump in place. Awaiting availability of bed in the ICU for transfer to [facility] [place]. Alden Dixon MD [facility] Subjective Date/time seen: Date of service: 04/05/22 12:32 Interval history: Follow-up visit in this 72-year-old man with: Critical coronary artery disease presenting with non ST elevation MT. Patient underwent angiography with left main, ostial circumflex and proximal LAD stenosis. Intra-aortic balloon pump placed. No longer having any ischemic chest pain. Awaiting bed at [facility] [place] for cardiothoracic surgery consultation. Today, he remains hemodynamically stable no complaints of chest pain or shortness of breath. Patient states he is still somewhat scared. Denies leg pain. Remains on COVID isolation. Review of Systems Constitutional: Constitutional: Denies fever(s) Eyes: Eyes: Reports no additional eye complaints ENT: Denies epistaxis Cardiovascular: Cardiovascular: Reports chest pain, Denies pedal edema, Denies lightheadedness, Reports palpitations, Reports dyspnea and Reports dyspnea on exertion Respiratory: Respiratory: Reports chest congestion, Reports dyspnea, Reports dyspnea on exertion and Reports wheezing Gastrointestinal: Gastrointestinal: Denies abdominal pain and Denies hematochezia Genitourinary: Genitourinary: Denies hematuria Musculoskeletal: Musculoskeletal: Reports no additional musculoskeletal complaints Integumentary/Breasts: Skin/Breast: Reports system reviewed and no additional complaints, except as docu Neurologic: Reports system reviewed and no additional complaints, except as documented, Denies behavioral changes and Denies confusion Psychiatric: Psychiatric: Denies behavioral changes and Denies confusion Endocrine: Endocrine: Reports palpitations Allergic/Immunologic: Allergic/Immunologic: Reports wheezing Exam Const: General: cooperative, healthy appearing, comfortable and no acute distress; No confusion Orientation/consciousness: oriented to person, patient oriented x3 and No confusion Other: Lying supine in bed pleasant, cooperative. O2 via nasal cannula HEN
[2022-04-05 13:31] LABS: Glucose Point of Care 194 mg/dl (65-105)
[2022-04-05 15:43] LABS: IFOB Positive Control Positive; Immunochemical Fecal Occult Bl Negative (N)
[2022-04-05 16:25] LABS: Pneumococcal Antigen Urine Not Detected (Not Detected)
--- NOTE | 2022-04-05 17:16 | PC.NURSE ---
Reported called to [facility] at [facility] [place] SICU room 22, . Report provided to [facility] transport. Called to update patient family Sachi and son, Jefferson Jr. Patient left unit with flight crew. Patient alert x4, without complaints of chest pain or shortness of breath.
[2022-04-06 22:58] LABS: Legionella pneumophila Ag Ur Not Detected (Not Detected)
--- NOTE | 2022-05-16 10:36 | PM.TDS ---
Transfer Discharge Sum: Prov Provider Date of admission: 04/03/22 03:35 Primary care physician: PHYSICIAN NOT ON STAFF Admitting clinician: Damien España MD Consults: 04/03/22 Consult to Physician Routine Comment: Consulting Provider: Kota Cuba Reason for consultation: NSTEMI Has provider been notified: Yes 04/03/22 03:36 Consult to Physician Routine Comment: Consulting Provider: Casey Brown Reason for consultation: ICU admit Has provider been notified: Yes 04/03/22 08:32 Consult to Dietitian Routine Reason for Consult:: DKA admission DS: Admitting Diagnosis Discharge Date 04/05/22 Admitting Diagnosis Non-STEMI, COVID DS: Discharge Diagnosis Discharge Diagnosis (1) Acute respiratory failure: Code(s): J96.00 - Acute respiratory failure, unspecified whether with hypoxia or hypercapnia Status: Acute Assessment and Plan: Presented with Acute Respiratory failure multifactorial secondary to baseline COPD, congestive heart failure, COVID-[address] scan suggest bilateral infiltrates, elevated BNP, elevated WBC, positive COVID He was on BiPAP which has now been weaned. Maintaining his oxygenation on nasal cannula and only requiring 1-2 L nasal cannula He was given Lasix in ER and presentation but further Lasix doses have been held Most recent ABG reviewed Empiric antibiotic therapy with vcefepime and azithromycin Bronchodilators Dexamethasone and remdesivir Reviewed echocardiogram (2) COPD (chronic obstructive pulmonary disease): Code(s): J44.9 - Chronic obstructive pulmonary disease, unspecified Status: Acute Assessment and Plan: See above (3) DKA (diabetic ketoacidosis): Code(s): E11.10 - Type 2 diabetes mellitus with ketoacidosis without coma Status: Acute Assessment and Plan: Patient presented his blood sugar was in 400 and beta hydroxybutyrate was mildly elevated.? He had a positive anion gap. He was given Lantus and subcutaneous insulin.? He was not started on insulin infusion Repeat check showed anion gap had closed. I will continue with Lantus and change sliding scale at this time If blood sugars are not controlled with this subcutaneous insulin, he may still need insulin infusion Hold p.o. diabetic meds at this time (4) T2DM (type 2 diabetes mellitus): Code(s): E11.9 - Type 2 diabetes mellitus without complications Status: Acute Assessment and Plan: See above (5) COVID-19: Code(s): U07.1 - COVID-19 Status: Acute Assessment and Plan: Patient was tested positive for COVID-19 although his picture is mixed and not classical for COVID-19 pneumonia, he meets the criteria for treatment Continue Isolation Continue Dexamethasone and remdesivir (6) Elevated serum creatinine: Code(s): R79.89 - Other specified abnormal findings of blood chemistry Status: Acute Assessment and Plan: Creatinine has now improved into a normal range Continue to monitor (7) NSTEMI (non-ST elevated myocardial infarction): Code(s): I21.4 - Non-ST elevation (NSTEMI) myocardial infarction Status: Acute Assessment and Plan: Patient presented with elevated troponin, abnormal EKG and chest discomfort. Repeat troponin was significantly elevated 04/03 patient underwent cardiac catheterization which showed Severe multivessel coronary disease with 60% left main stenosis, 95-99% stenosis of the proximal Left anterior descending involving the 1st diagonal, subtotal occlusion of the mid Left anterior descending which is filled faintly via septal collaterals from the right coronary artery.? 95-99% stenosis of the ostial circumflex, 40-50% stenosis of the OM2, 60% stenosis of the right coronary artery. Heavily calcified proximal vessels Ejection fraction 25-30% by echo Elevated left ventricular end-diastolic pressure Patient is now awaiting
== END 2022-04-05 17:03 | disposition short-term general hospital (02) | DRG 270 ==
LOC: ANHED 01:28 → ANHICU 04:08
PROVIDERS: Internal Medicine; Admitting Provider Internal Medicine; Emergency Provider Emergency Medicine; Visit Provider Internal Medicine Cardiovascular Disease
PROC: 4A023N7 Measurement of Cardiac Sampling and Pressure, Left Heart, Percutaneous Approach (ICD-10-PCS; CPT 93452; principal; 2022-04-03 12:30)
PROC: 5A02210 Assistance with Cardiac Output using Balloon Pump, Continuous (ICD-10-PCS; 2022-04-03 12:30)
DX: I21.4 Non-ST elevation (NSTEMI) myocardial infarction (principal); U07.1 COVID-19; J12.82 Pneumonia due to coronavirus disease 2019; J96.01 Acute respiratory failure with hypoxia; E11.10 Type 2 diabetes mellitus with ketoacidosis without coma; N17.9 Acute kidney failure, unspecified; I11.0 Hypertensive heart disease with heart failure; I50.9 Heart failure, unspecified; I25.10 Atherosclerotic heart disease of native coronary artery without angina pectoris; J44.9 Chronic obstructive pulmonary disease, unspecified; R77.8 Other specified abnormalities of plasma proteins; Z87.891 Personal history of nicotine dependence
CPT/HCPCS: 33967; 36415; 36600; 71045; 71250; 74176; 80048; 80053; 81001; 82010; 82274; 82805; 82948; 83036; 83615; 83735; 83880; 84100; 84460; 84484; 85025; 85027; 85380; 85610; 85730; 87040; 87449; 87899; 93005; 93306; 93458; 94002; 94640; 96361; 96374; 96375; 99285; A9270; C1887; C1894; C9803; J0153; J0248; J0456; J0692; J1100; J1644; J1815; J1940; J2060; J2250; J2543; J3010; J3370; J7030; J7040; L1830; U0003; U0005

== ENCOUNTER 2022-06-22 02:10 | Observation (INO) | payer MEDICARE, SELFPAY ==
[2022-06-22] VITALS (40 sets, daily range): BP systolic 102–177; BP diastolic 54–87; PULSE 84–121; RESP 16–27; TEMP 36.5–37.2; O2SAT 90–100; BMI 28.0
--- NOTE | ~2022-06-22 | XR_ITS ---
XR chest 1V portable 06/22/2022 02:36 Indication: Dyspnea Procedure: AP portable chest Comparison: Comparison to multiple prior studies sequentially, with oldest reviewed study dated 09/2003. Findings: Status post median sternotomy for CABG. Cardiomegaly with interstitial edema. There are a f ew scattered calcified granulomas. Small left pleural effusion. No pneumothorax. Impression: 1: Cardiomegaly with mild interstitial edema. Reviewed, dictated and finalized at location A. Impression: 1: Cardiomegaly with mild interstitial edema.
--- NOTE | 2022-06-22 02:13 | ECG_ITS ---
Measurements Intervals [facility] Rate: 111 P: 64 VT: 171 QRS: 73 QRSD: 88 T: 82 QT: 289 QTc: 394 Interpretive Statements SINUS TACHYCARDIA NONSPECIFIC ST AND T WAVE ABNORMALITY COMPARED TO ECG 04/03/2022 09:52:09 NO SIGNIFICANT CHANGES Electronically Signed On 06-22-2022 12:17:03 CDT by Hiren Shafer M.D.
[2022-06-22] MEDS: NITROGLYCERIN SL 0.4 MG TABLET SUBLINGUAL (02:38)
[2022-06-22] MEDS: ASPIRIN 81 MG CHEWABLE TABLET 324 MG PO (02:38)
--- NOTE | 2022-06-22 02:40 | ED.GENADULT ---
HPI - General Adult General Chief complaint: Shortness of Breath/Dyspnea Stated complaint: short of breath x 1 hour Time Seen by Provider: 06/22/22 02:17 History of Present Illness HPI narrative: Patient is a 72-year-old gentleman who presents the emergency department with chief complaint of shortness of breath. Patient reports that he has prior history of cardiac disease had a positive cath and a cardiac bypass patient states this evening he started having onset of shortness of breath patient states he feels as though he cannot get a good deep breath reports that is worse with exertion and improved with rest. Patient states he had a little bit of a fullness feeling in his chest but no definable chest pain. Related Data Home Medications Medication Instructions Recorded Confirmed albuterol sulfate 90 mcg/actuation 2 puff inhalation QID PRN 04/03/22 06/03/22 aerosol inhaler (ProAir HFA) Shortness Of Breath Or Wheezing alogliptin 25 mg tablet 25 mg PO DAILY 04/03/22 06/03/22 empagliflozin 25 mg tablet 25 mg PO DAILY 04/03/22 06/03/22 (Jardiance) ipratropium 18 mcg-albuterol 103 1 spray inhalation QID 04/03/22 05/29/22 mcg/actuation aerosol inhaler metformin 1,000 mg tablet 1,000 mg PO BIDWMEAL 04/03/22 06/03/22 pioglitazone 45 mg tablet 45 mg PO DAILY 04/03/22 06/03/22 acetaminophen 325 mg capsule 325 mg PO Q6H PRN Pain 05/29/22 06/03/22 metoprolol tartrate 100 mg tablet 50 mg PO BID 05/29/22 05/29/22 pantoprazole 40 mg tablet,delayed 40 mg PO QAM 05/29/22 06/03/22 release polyethylene glycol 3350 17 gram 17 g PO DAILY 05/29/22 06/03/22 oral powder packet (Miralax) Allergies Allergy/AdvReac Type Severity Reaction Status Date / Time No Known Allergies Allergy Verified 06/22/22 02:41 Review of Systems Review of Systems: A 10 system review of systems was completed on the patient and is negative except for what is stated in the HPI. Nursing and ancillary documentation was reviewed. [facility] Past Medical History Medical History Acute respiratory failure [place] (acute kidney injury) CAD (coronary artery disease) COPD (chronic obstructive pulmonary disease) CVA (cerebral vascular accident) Essential hypertension History of tobacco abuse Hyperlipidemia associated with type 2 diabetes mellitus NSTEMI (non-ST elevated myocardial infarction) Pneumonia due to COVID-19 virus Sepsis with acute hypoxic respiratory failure T2DM (type 2 diabetes mellitus) Family History Family History Father Acute myocardial infarction Hx of CABG Mother Cerebrovascular accident Diabetes mellitus Social History Social History Social History: Smoking packs per day: 2 Smoking cigarettes per day: 40.0 Years smoked: 40 Smoking pack-years: 80.00 Smoking status: Former smoker Tobacco type: cigarettes Second hand tobacco smoke exposure: No Smoking end date: 04/28/04 Alcohol intake: former Substance use: never Substance use type: does not use Gender identity (if verbalized by the patient): Male Sexual Orientation (if Verbalized by the Patient): Straight or Heterosexual Spiritual care concerns: No Exam Narrative: GENERAL: Well-appearing, well-nourished, and in no acute distress. HEAD: Normocephalic, atraumatic. EYES: PERRLA and EOMI. ENT: Nares clear, no rhinorrhea or epistaxis. Mucous membranes moist. NECK: Supple. CHEST: Clear to auscultation. No respiratory distress. HEART: Regular rate and rhythm. No murmur heard. Normal peripheral pulses. ABDOMEN: Soft, nontender, nondistended, normal active bowel sounds. EXTREMITIES: Normal range of motion. No edema. SKIN: Warm, dry, no rash. NEURO: No focal deficits. Alert and oriented x3. PSYCH: Normal mood and affect. Course Vital Signs Vital signs: Vital Si
--- NOTE | 2022-06-22 02:42 | PC.NURSE ---
Patient states slight relief with 1 nitro tab, states it is a little easier to breathe. Patient states he will wait on the morphine.
[2022-06-22 03:12] LABS: Basophils Percent Auto 0.4 % (0.2-1.2); Eosinophils Absolute Auto 0.2 K/mm3 (0-0.3); Eosinophils Percent Auto 1.9 % (0-4.4); Hematocrit 31.2 % (42.0-52.0); Hemoglobin 8.5 g/dL (14.0-18.0); Immature Granulocyte Absolute 0.06 K/mm3 (0.00-0.031); Immature Granulocyte Percent A 0.7 % (0-0.5); Lymphocytes Absolute Auto 1.28 K/mm3 (0.9-3.2); Lymphocytes Percent Auto 15.2 % (18.3-44.2); Mean Corpuscular HGB Conc 27.2 g/dl (32-36); Mean Corpuscular Hemoglobin 23.5 pg (26-34); Mean Corpuscular Volume 86.2 fl (80-100); Mean Platelet Volume 9.4 fl (7.4-10.4); Monocytes Absolute Auto 0.8 K/mm3 (0.1-0.6); Monocytes Percent Auto 9.4 % (2.6-8.5); Neutrophils Absolute Auto 6.1 K/mm3 (1.3-6.7); Neutrophils Percent Auto 72.4 % (45.5-73.1); Platelet Count Result 317 k/mm3 (150-375); Red Blood Count 3.62 M/mm3 (4.6-6.20); Red Cell Distribution Width 18.5 % (11.5-14.5); White Blood Count 8.4 K/mm3 (4.5-10.0)
[2022-06-22 03:15] LABS: Appearance Urine Clear (Clear); Bilirubin Urine Negative (Negative); Blood Urine Negative (Negative); Color Urine Yellow (Yellow); Glucose Urine UA 3+ mg/dL (Negative); Ketones Urine Negative (Negative); Leukocyte Esterase Ur Trace LEU/UL (Negative); Nitrate Urine Negative (Negative); Protein Urine 1+ mg/dL (Negative); Urobilinogen Urine 0.2 mg/dL (<2.0)
[2022-06-22 03:19] LABS: Mucus Urine Rare /lpf; WBC Urine 16-20 /hpf
[2022-06-22 03:20] LABS: Add Urine Microscopic? YES
[2022-06-22 03:23] LABS: INR 1.1; Prothrombin Time 13.9 Seconds (11.1-14.7)
[2022-06-22 03:24] LABS: Alanine Aminotransferase 27 U/L (6-50); Alkaline Phosphatase 83 U/L (38-126); Anion Gap 12 mmol/L (8-16); Aspartate Amino Transferase 35 U/L (17-59); Bilirubin,Total 0.3 mg/dL (0.2-1.3); Blood Urea Nitrogen 15 mg/dL (9-20); Calcium 8.8 mg/dL (8.4-10.2); Carbon Dioxide 25 mmol/L (22-30); Chloride 102 mmol/L (98-107); Estimated CRCL calculation 57 ml/min; Estimated Glomerular Filt Rate > 60; Glucose 161 mg/dL (65-110); Lipase 342 U/L (23-300); Partial Thromboplastin Time 26.6 SECONDS (22.3-36.8); Potassium 3.8 mmol/L (3.4-5.0); Sodium 139 mmol/L (137-145)
[2022-06-22 03:27] LABS: Anisocytosis 1+ (NORMAL); Hypochromasia 1+ (NORMAL); Platelet Estimate Adequate (Adequate); Schistocytes None Seen (NORMAL)
[2022-06-22 03:41] LABS: NT Pro B Type Natriuretic Pept 1890 pg/mL (5-100); Troponin I 0.015 ng/mL (0.000-0.034)
[2022-06-22] MEDS: ALBUTEROL SULFATE NEB 2.5 MG/3 ML INH 5 MG INHALATION ×4 (04:26→20:06)
[2022-06-22] MEDS: IPRATROPIUM BR 0.02% INH SOLN 0.5 MG/2.5 ML VIAL INHALATION ×4 (04:28→20:06)
[2022-06-22] MEDS: FUROSEMIDE INJ 40 MG/4 ML VIAL IV PUSH ×3 (04:52→20:28)
--- NOTE | 2022-06-22 04:55 | PM.IMHP ---
H&P: HPI History of Present Illness Date/Time: 06/22/22 04:55 Chief Complaint: shortness of breath Narrative: This is a 72-year-old male with past medical history significant for coronary artery disease, coronary artery bypass graft, type 2 diabetes mellitus, dyslipidemia, type 2 diabetes mellitus, COPD. patient presents to the emergency room due to shortness of breath and wheezing he has been participating in cardiac rehabilitation has been walking 1 mi a day and has been doing 35-40 minutes on his treadmill, symptoms started roughly 2 days ago denies any fevers, rigors, chills has had some cough nonproductive of sputum, denies any chest pain, palpitations, he takes his vitals daily and his heart rate has been 80s, denies any belly pain, no nausea, no vomiting, no diarrhea, no syncope, no near syncope, no leg swelling. preliminary workup was significant for brain natreuretic peptide 1800, a urinalysis shows 16-20 wbc's per high-power field. a chest x-ray was significant for pulmonary edema. Patient is been admitted for further evaluation management and treatment. An EKG was significant for: SINUS TACHYCARDIA SEPTAL MYOCARDIAL INFARCTION , OF INDETERMINATE AGE [40+ ms Q WAVE IN V1/V2] COMPARED TO ECG 04/03/2022 09:52:09 MYOCARDIAL INFARCT FINDING NOW PRESENT Review of Systems Review of Systems: Lightheadedness, shortness of breath, wheezing, dry cough. Constitutional: Constitutional: Denies chills, Denies fatigue, Denies fever(s), Denies lethargy, Denies malaise, Denies night sweats, Denies poor appetite and Denies weakness Eyes: Eyes: Denies change in vision ENT: Denies dysphagia, Denies vertigo, Reports dizziness and Denies odynophagia Cardiovascular: Cardiovascular: Denies chest pain, Denies irregular heart rhythm, Denies leg edema, Reports lightheadedness, Denies palpitations and Reports dyspnea Respiratory: Respiratory: Reports cough and Reports wheezing Gastrointestinal: Gastrointestinal: Denies abdominal pain, Denies dyspepsia, Denies heartburn, Denies diarrhea, Denies nausea and Denies vomiting Genitourinary: Genitourinary: Denies dysuria Musculoskeletal: Musculoskeletal: Denies myalgias and Denies limited range of motion Integumentary/Breasts: Skin/Breast: Denies rash Neurologic: Denies focal weakness and Denies Sensory deficit (Neuro) Psychiatric: Psychiatric: Reports no additional psychiatric complaints and Reports as per HPI Endocrine: Endocrine: Denies cold intolerance, Denies flushing, Denies heat intolerance, Denies polyphagia, Denies polydipsia and Denies palpitations Hematologic/Lymphatic: Hematologic/Lymphatic: Reports no additional hematologic/lymphatic complaints and Reports as per HPI Allergic/Immunologic: Allergic/Immunologic: Reports no additional allergic/immunologic complaints and Reports as per HPI PMFSH Past Medical History Medical History Acute respiratory failure [place]AT (acute kidney injury) CAD (coronary artery disease) COPD (chronic obstructive pulmonary disease) CVA (cerebral vascular accident) Essential hypertension History of tobacco abuse Hyperlipidemia associated with type 2 diabetes mellitus NSTEMI (non-ST elevated myocardial infarction) Pneumonia due to COVID-19 virus Sepsis with acute hypoxic respiratory failure T2DM (type 2 diabetes mellitus) Family History Family History Father Acute myocardial infarction Hx of CABG Mother Cerebrovascular accident Diabetes mellitus Social History Social History Social History: Smoking packs per day: 2 Smoking cigarettes per day: 40.0 Years smoked: 40 Smoking pack-years: 80.00 Smoking status: Former smoker Tobacco type: cigarettes Second hand tobacco smoke exposure: No Smoking end date: 04/28/04 Alcohol intake: former Subst
--- NOTE | 2022-06-22 05:43 | PC.NURSE ---
This patient, Solo Driver, was admitted to IMU Room 203-01 at 0544. Patient/family oriented to hospital policies and general routines including ID bracelet, bed and alarms, visiting hours, pain management, procedures, bathroom and other care routines, personal items, smoking policy, room service/diet, and visiting hours. Information on how to activate the Rapid Response Team has been discussed. Patient/Family are encouraged to report perceived risks to care and to ask questions if they do not understand what they are told or what they should do.
[2022-06-22 06:20] LABS: Troponin I 0.031 ng/mL (0.000-0.034)
--- NOTE | 2022-06-22 06:24 | ADMGEN ---
This patient, Solo Driver, was admitted to IMU Room 203-01 on 06/22/22 at 0543. Patient/family oriented to hospital policies and general routines including ID bracelet, bed and alarms, visiting hours, pain management, procedures, bathroom and other care routines, personal items, smoking policy, room service/diet, and visiting hours. Information on how to activate the Rapid Response Team has been discussed. Patient/Family are encouraged to report perceived risks to care and to ask questions if they do not understand what they are told or what they should do.
--- NOTE | 2022-06-22 07:50 | PC.NURSE ---
[facility] flyer was given to patient.
[2022-06-22 09:05] LABS: Troponin I 0.051 ng/mL (0.000-0.034)
--- NOTE | 2022-06-22 09:29 | ECG_ITS ---
Measurements Intervals [place] Rate: 112 P: 34 CT: 140 QRS: 53 QRSD: 89 T: 104 QT: 283 QTc: 387 Interpretive Statements SINUS TACHYCARDIA POSSIBLE LEFT ATRIAL ENLARGEMENT [-0.1mV P WAVE IN V1/V2] NONSPECIFIC ST AND T-WAVE ABNORMALITY ABNORMAL RHYTHM ECG COMPARED TO ECG 06/22/2022 02:17:07 NO SIGNIFICANT CHANGES Electronically Signed On 06-22-2022 12:20:02 CDT by Hiren Shafer M.D.
--- NOTE | 2022-06-22 09:51 | PM.IMPN ---
Progress Note: A&P Assessment and Plan (1) Heart failure, systolic, with acute decompensation: Code(s): I50.23 - Acute on chronic systolic (congestive) heart failure Status: Acute Assessment and Plan: appreciate cardiology consultation, IV diuresis, continue cardiac meds as appropriate (2) CAD (coronary artery disease): Code(s): I25.10 - Atherosclerotic heart disease of [place] coronary artery without angina pectoris Status: Acute Assessment and Plan: stable (3) Type 2 diabetes mellitus with diabetic chronic kidney disease: Code(s): E11.22 - Type 2 diabetes mellitus with diabetic chronic kidney disease Status: Acute Assessment and Plan: Accu-Cheks AC and HS a1c pending hold metformin continue pioglitazone insulin sliding scale as needed (4) COPD (chronic obstructive pulmonary disease): Code(s): J44.9 - Chronic obstructive pulmonary disease, unspecified Status: Chronic Assessment and Plan: stable (5) Essential hypertension: Code(s): I10 - Essential (primary) hypertension Status: Acute Assessment and Plan: resume home meds Plan DVT prophylaxis with SCDs GI prophylaxis not indicated Code status full code Subjective Date/time seen: 06/22/22 09:51 Interval history: No overnight events noted. No chest pain or shortness of breath. No nausea, vomiting or diarrhea. No fevers or chills. Review of Systems Review of Systems: 12 point review of systems was assessed and was negative except as noted in the HPI Exam Narrative: General: No acute distress, alert and oriented per baseline HEENT: Atraumatic, normocephalic, mucous membranes moist CV: Regular rate and rhythm, S1, S2 Lungs: Clear to auscultation bilaterally, no rales or crackles noted, no wheezes, good air entry Abdomen: Soft, nontender, nondistended Extremities: Normal to inspection Skin: No rashes noted, no lesions or wounds seen Psych: Euthymic, normal affect Objective Data Vital Signs Vital Signs: Vital Signs - 24 hr 06/22/22 02:13 06/22/22 02:43 06/22/22 02:31 Temperature 98.2 F Pulse Rate 112 H 115 H Respiratory Rate 23 H 25 H Blood Pressure 150/87 H 139/76 177/79 H Pulse Oximetry 97 94 Oxygen Delivery Room Air 06/22/22 02:32 06/22/22 02:25 06/22/22 04:29 Temperature Pulse Rate 112 H Respiratory Rate 27 H Blood Pressure Pulse Oximetry 95 97 92 Oxygen Delivery Room Air Room Air 06/22/22 04:29 06/22/22 04:48 06/22/22 02:44 Temperature Pulse Rate 111 H 110 H 102 H Respiratory Rate 20 18 21 H Blood Pressure 139/76 Pulse Oximetry 93 Oxygen Delivery 06/22/22 02:45 06/22/22 03:00 06/22/22 03:16 Temperature Pulse Rate 110 H 103 H 106 H Respiratory Rate 18 18 22 H Blood Pressure Pulse Oximetry 93 90 94 Oxygen Delivery 06/22/22 03:42 06/22/22 03:45 06/22/22 04:07 Temperature Pulse Rate 95 96 100 Respiratory Rate 22 H 21 H 24 H Blood Pressure Pulse Oximetry 91 92 95 Oxygen Delivery 06/22/22 04:15 06/22/22 04:34 06/22/22 04:45 Temperature Pulse Rate 101 H 100 108 H Respiratory Rate 22 H 19 24 H Blood Pressure Pulse Oximetry 94 100 100 Oxygen Delivery 06/22/22 05:29 06/22/22 05:30 06/22/22 05:31 Temperature Pulse Rate 121 H 119 H 120 H Respiratory Rate 25 H 27 H 24 H Blood Pressure 141/77 H Pulse Oximetry 100 99 98 Oxygen Delivery 06/22/22 05:45 06/22/22 05:43 06/22/22 05:43 Temperature 98.2 F Pulse Rate 118 H 117 H 117 H Respiratory Rate 16 16 Blood Pressure 132/65 Pulse Oximetry 94 94 Oxygen Delivery Room Air 06/22/22 05:43 06/22/22 08:00 06/22/22 08:05 Temperature 97.7 F Pulse Rate 118 H 108 H 112 H Respiratory Rate 20 20 Blood Pressure 115/62 Pulse Oximetry 95 Oxygen Delivery 06/22/22 08:16 Temperature Pulse Rate 115 H Respiratory Rate 20 Blood Pressure Pulse Oximetry Oxygen Delivery
[2022-06-22 10:10] LABS: Hemoglobin A1C 6.8 % (<5.7)
--- NOTE | 2022-06-22 10:44 | PM.CNCAR ---
Assessment and Plan Assessment and plan (1) CAD (coronary artery disease): Code(s): I25.10 - Atherosclerotic heart disease of [place] coronary artery without angina pectoris Status: Acute Assessment and Plan: Continue ASA, statin, and beta-cortez. (2) Heart failure, systolic, with acute decompensation: Code(s): I50.23 - Acute on chronic systolic (congestive) heart failure Status: Acute Assessment and Plan: Recent LVEF 43%. Continue IV diuresis for now. Continue home beta-cortez dose and Jardiance. (3) Hx of coronary artery bypass graft: Code(s): Z95.1 - Presence of aortocoronary bypass graft Status: Acute Assessment and Plan: Continue ASA, statin, and beta-cortez. History of Present Illness History of Present Illness Consult date/time: 06/22/22 10:44 Requesting physician: Damien España MD Consult reason: shortness of breath Reason For Visit: dyspnea, uti, cad Narrative: Patient is a 72-year-old male who presented with symptoms of congestive heart failure, for which we are being consulted for. Patient was recently admitted here in March for an NSTEMI. Found with MVCAD. Was transferred to [facility] for surgical evaluation. Patient underwent CABG x 3 with NAGY-LAD, radial artery T graft off the NAGY to the OM, SVG to the PDA on 04/08/2022 with pectoral muscle flaps and sternal plating. Patient sees Dr. Henao and was recently seen by her earlier this month. Patient was doing well at that time. Has been doing cardiac rehab without issue. Patient presented yesterday with shortness of breath for a few days. BNP elevated. CXR with small left pleural effusion and mil interstitial edema. Recent echo with LVEF 43%. Review of Systems Review of Systems: 12-point ROS obtained. Negative, unless stated in HPI. [facility] Past Medical History Medical History Acute respiratory failure MONSERRAT (acute kidney injury) CAD (coronary artery disease) COPD (chronic obstructive pulmonary disease) CVA (cerebral vascular accident) Essential hypertension History of tobacco abuse Hyperlipidemia associated with type 2 diabetes mellitus NSTEMI (non-ST elevated myocardial infarction) Pneumonia due to COVID-19 virus Sepsis with acute hypoxic respiratory failure T2DM (type 2 diabetes mellitus) Family History Family History Father Acute myocardial infarction Hx of CABG Mother Cerebrovascular accident Diabetes mellitus Social History Social History Social History: Smoking packs per day: 2 Smoking cigarettes per day: 40.0 Years smoked: 40 Smoking pack-years: 80.00 Smoking status: Former smoker Tobacco type: cigarettes Second hand tobacco smoke exposure: No Smoking end date: 04/28/04 Alcohol intake: former Substance use: former Substance use type: marijuana Has the Lack of Transportation Kept You From Medical Appointments or From Getting Medications?: No Within the Past 12 Months, Were You Worried Whether Your Food Would Run Out Before You Got Money to Buy More?: Never True What is Your Housing Situation Today?: I Have Housing Are You Worried That in the Next 2 Months, You May Not Have Your Own Housing to Live In?: No Do You Have Trouble Paying Your Heating Or Electricity Bill?: No Do You Have Trouble Paying For Medicines?: No Are You Currently Unemployed and Looking for Work?: No Highest Level of Education Completed: High School Diploma/GED Do You Have Trouble With Childcare or the Care of a Family Member?: No Gender identity (if verbalized by the patient): Male Sexual Orientation (if Verbalized by the Patient): Straight or Heterosexual Spiritual care concerns: No Meds Home Medications and Allergies Home Medications Medication Instructions Recorded Confirmed Type alb
[2022-06-22] MEDS: ENOXAPARIN 40 MG/0.4 ML SYRINGE SUB-Q (12:04)
[2022-06-22] MEDS: ASPIRIN 81 MG ENTERIC TABLET PO (12:04)
[2022-06-22] MEDS: EMPAGLIFLOZIN 25 MG TABLET PO (12:04)
[2022-06-22] MEDS: METOPROLOL TARTRATE 50 MG TAB PO (12:04)
[2022-06-22 12:19] LABS: Glucose Point of Care 190 mg/dl (65-105)
[2022-06-22 13:35] LABS: Troponin I 0.083 ng/mL (0.000-0.034)
[2022-06-22 14:34] LABS: Glucose Point of Care 175 mg/dl (65-105)
[2022-06-22] MEDS: PANTOPRAZOLE SOD SESQUIHYDRATE 20 MG TAB PO (16:18)
[2022-06-22 16:41] LABS: Glucose Point of Care 185 mg/dl (65-105)
[2022-06-22] MEDS: METOPROLOL TARTRATE 25 MG TABLET PO (17:47)
[2022-06-22] MEDS: polyethylene glycoL 3350 17 GM POWD.PACK PO (20:24)
[2022-06-22] MEDS: ATORVASTATIN 40 MG TABLET 80 MG PO (20:28)
[2022-06-22 20:32] LABS: Troponin I 0.076 ng/mL (0.000-0.034)
--- NOTE | 2022-06-22 20:39 | PCRTNOTE ---
Patient states he does not want to be woken for his 2am treatment.
[2022-06-22 21:22] LABS: Glucose Point of Care 252 mg/dl (65-105)
[2022-06-23] VITALS (16 sets, daily range): BP systolic 110–127; BP diastolic 60–81; PULSE 80–106; RESP 16–20; TEMP 36.2–37.2; O2SAT 94–100; BMI 28.0
[2022-06-23] MEDS: ALBUTEROL SULFATE NEB 2.5 MG/3 ML INH 5 MG INHALATION ×4 (02:39→20:44)
[2022-06-23] MEDS: IPRATROPIUM BR 0.02% INH SOLN 0.5 MG/2.5 ML VIAL INHALATION ×4 (02:39→20:45)
[2022-06-23 06:08] LABS: Basophils Percent Auto 0.5 % (0.2-1.2); Eosinophils Percent Auto 0.7 % (0-4.4); Hematocrit 33.7 % (42.0-52.0); Hemoglobin 9.7 g/dL (14.0-18.0); Immature Granulocyte Absolute 0.02 K/mm3 (0.00-0.031); Immature Granulocyte Percent A 0.3 % (0-0.5); Lymphocytes Absolute Auto 1.06 K/mm3 (0.9-3.2); Lymphocytes Percent Auto 17.2 % (18.3-44.2); Mean Corpuscular HGB Conc 28.8 g/dl (32-36); Mean Corpuscular Hemoglobin 24.2 pg (26-34); Monocytes Absolute Auto 0.7 K/mm3 (0.1-0.6); Monocytes Percent Auto 10.6 % (2.6-8.5); Neutrophils Absolute Auto 4.4 K/mm3 (1.3-6.7); Neutrophils Percent Auto 70.7 % (45.5-73.1); Platelet Count Result 375 k/mm3 (150-375); Red Blood Count 4.01 M/mm3 (4.6-6.20); Red Cell Distribution Width 18.9 % (11.5-14.5); White Blood Count 6.2 K/mm3 (4.5-10.0)
[2022-06-23 06:13] LABS: Alanine Aminotransferase 29 U/L (6-50); Albumin Level 4.6 g/dL (3.5-5.1); Alkaline Phosphatase 97 U/L (38-126); Anion Gap 16 mmol/L (8-16); Aspartate Amino Transferase 34 U/L (17-59); Bilirubin,Total 0.6 mg/dL (0.2-1.3); Blood Urea Nitrogen 22 mg/dL (9-20); Calcium 9.1 mg/dL (8.4-10.2); Carbon Dioxide 26 mmol/L (22-30); Chloride 99 mmol/L (98-107); Estimated CRCL calculation 47 ml/min; Estimated Glomerular Filt Rate > 60; Glucose 205 mg/dL (65-110); Potassium 3.4 mmol/L (3.4-5.0); Sodium 141 mmol/L (137-145)
[2022-06-23 08:29] LABS: Glucose Point of Care 146 mg/dl (65-105)
[2022-06-23] MEDS: ASPIRIN 81 MG ENTERIC TABLET PO (08:57)
[2022-06-23] MEDS: METOPROLOL TARTRATE 50 MG TAB PO (08:57)
[2022-06-23] MEDS: ENOXAPARIN 40 MG/0.4 ML SYRINGE SUB-Q (08:58)
[2022-06-23] MEDS: PANTOPRAZOLE SOD SESQUIHYDRATE 20 MG TAB PO ×2 (08:58→17:15)
[2022-06-23] MEDS: FUROSEMIDE INJ 40 MG/4 ML VIAL IV PUSH (08:58)
[2022-06-23] MEDS: EMPAGLIFLOZIN 25 MG TABLET PO (08:58)
--- NOTE | 2022-06-23 11:54 | PM.IMPN ---
Progress Note: A&P Assessment and Plan (1) Heart failure, systolic, with acute decompensation: Code(s): I50.23 - Acute on chronic systolic (congestive) heart failure Status: Acute Assessment and Plan: continue IV Lasix. Responding well to diuresis. Currently on room air Continue statin, beta-cortez (2) COPD exacerbation: Code(s): J44.1 - Chronic obstructive pulmonary disease with (acute) exacerbation Status: Acute Assessment and Plan: stable. Continue nebulizer (3) Acute dyspnea: Code(s): R06.00 - Dyspnea, unspecified Status: Acute Assessment and Plan: likely from combination of mild COPD exacerbation and CHF exacerbation. Management as above. currently on room air (4) CAD (coronary artery disease): Code(s): I25.10 - Atherosclerotic heart disease of [place] coronary artery without angina pectoris Status: Acute Assessment and Plan: stable. No chest pain. Mild troponin elevation likely secondary to demand ischemia. Continue beta-cortez, aspirin, statin (5) Acute UTI: Code(s): N39.0 - Urinary tract infection, site not specified Status: Acute Assessment and Plan: on IV Rocephin (6) Type 2 diabetes mellitus with diabetic chronic kidney disease: Code(s): E11.22 - Type 2 diabetes mellitus with diabetic chronic kidney disease Status: Acute Assessment and Plan: hold metformin. Continue empagliflozin and insulin Subjective Date/time seen: 06/23/22 11:54 Patient denies any chest pain, shortness of breath this morning. He is anxious Exam Const: General: cooperative and comfortable Orientation/consciousness: patient oriented x3 HENMT: Head: normal to inspection Mouth: Yes Normal oral and palatal mucosa present Eyes: General: appearance normal, both eyes and all related structures Resp: Effort & Inspection: normal respiratory effort Auscultation: clear to auscultation bilaterally Cardio: Rate: regular rate Rhythm: regular rhythm Heart sounds: S1 normal heart sound present and S2 normal heart sound present GI: GI Palp: Yes Soft to palpation Auscultation: normal bowel sounds Skin: General skin exam: normal color and no rashes or lesions noted Neuro: General: patient oriented x3, no focal motor deficits and CN's II-XI intact bilaterally Speech: normal speech Extrem: General: full ROM Psych: Appearance: grossly normal Objective Data Vital Signs Vital Signs: Vital Signs - 24 hr 06/22/22 12:04 06/22/22 12:00 06/22/22 12:00 Temperature 98.2 F Pulse Rate 108 H 102 H 103 H Respiratory Rate 16 Blood Pressure 112/54 L Pulse Oximetry 97 Oxygen Delivery 06/22/22 14:00 06/22/22 12:00 06/22/22 14:05 Temperature Pulse Rate 90 90 Respiratory Rate 20 Blood Pressure Pulse Oximetry Oxygen Delivery Room Air 06/22/22 14:15 06/22/22 16:00 06/22/22 17:47 Temperature 98.1 F Pulse Rate 94 87 87 Respiratory Rate 20 18 Blood Pressure 102/54 L Pulse Oximetry 97 Oxygen Delivery 06/22/22 16:00 06/22/22 16:00 06/22/22 18:00 Temperature Pulse Rate 89 88 Respiratory Rate Blood Pressure Pulse Oximetry Oxygen Delivery Room Air 06/22/22 19:38 06/22/22 20:06 06/22/22 20:18 Temperature 98.2 F Pulse Rate 84 86 87 Respiratory Rate 20 18 18 Blood Pressure 111/62 Pulse Oximetry 96 Oxygen Delivery 06/22/22 20:00 06/22/22 23:33 06/22/22 20:00 Temperature 98.9 F Pulse Rate 102 H 87 Respiratory Rate 20 Blood Pressure 120/62 Pulse Oximetry 99 Oxygen Delivery Room Air 06/22/22 22:00 06/23/22 00:00 06/23/22 02:00 Temperature Pulse Rate 89 97 88 Respiratory Rate Blood Pressure Pulse Oximetry Oxygen Delivery 06/23/22 00:00 06/23/22 04:00 06/23/22 04:00 Temperature 97.7 F Pulse Rate 106 H Respiratory Rate 20 Blood Pressure 127/81 Pulse Oximetry 100 Oxygen Delivery Ro
--- NOTE | 2022-06-23 11:55 | PM.PNCARD ---
Progress Note: A&P Assessment and Plan (1) Heart failure, systolic, with acute decompensation: Code(s): I50.23 - Acute on chronic systolic (congestive) heart failure Status: Acute Assessment and Plan: Will transition to PO diuretic today. On home Lasix 20mg. Will increase to 40mg once daily. Continue beta cortez and Jardiance (2) Hx of coronary artery bypass graft: Code(s): Z95.1 - Presence of aortocoronary bypass graft Status: Acute Assessment and Plan: Continue ASA, statin, and beta cortez Subjective Date/time seen: 06/23/22 11:55 Interval history: F/U visit for heart failure. Patient feeling much better this morning. No longer has shortness of breath. No lower extremity edema. Review of Systems Review of Systems: 8-point ROS obtained. Negative, unless stated in HPI. Exam Const: General: comfortable and no acute distress HENMT: Mouth: Yes moist mucous membranes Eyes: General: appearance normal, both eyes and all related structures Neck: Neck: supple Resp: Effort & Inspection: normal respiratory effort Auscultation: clear to auscultation bilaterally Cardio: Rate: regular rate Rhythm: regular rhythm Heart sounds: no murmurs GI: GI Palp: Yes Soft to palpation and No Tenderness to palpation present (GI) Auscultation: abnormal bowel sounds Skin: General skin exam: normal color Neuro: Speech: normal speech Extrem: General: no edema Psych: Mental Status: mental status grossly normal Objective Data Vital Signs Vital Signs: Vital Signs - 24 hr 06/22/22 12:04 06/22/22 12:00 06/22/22 12:00 Temperature 36.8 C Pulse Rate 108 H 102 H 103 H Respiratory Rate 16 Blood Pressure 112/54 L Pulse Oximetry 97 Oxygen Delivery 06/22/22 14:00 06/22/22 12:00 06/22/22 14:05 Temperature Pulse Rate 90 90 Respiratory Rate 20 Blood Pressure Pulse Oximetry Oxygen Delivery Room Air 06/22/22 14:15 06/22/22 16:00 06/22/22 17:47 Temperature 36.7 C Pulse Rate 94 87 87 Respiratory Rate 20 18 Blood Pressure 102/54 L Pulse Oximetry 97 Oxygen Delivery 06/22/22 16:00 06/22/22 16:00 06/22/22 18:00 Temperature Pulse Rate 89 88 Respiratory Rate Blood Pressure Pulse Oximetry Oxygen Delivery Room Air 06/22/22 19:38 06/22/22 20:06 06/22/22 20:18 Temperature 36.8 C Pulse Rate 84 86 87 Respiratory Rate 20 18 18 Blood Pressure 111/62 Pulse Oximetry 96 Oxygen Delivery 06/22/22 20:00 06/22/22 23:33 06/22/22 20:00 Temperature 37.2 C Pulse Rate 102 H 87 Respiratory Rate 20 Blood Pressure 120/62 Pulse Oximetry 99 Oxygen Delivery Room Air 06/22/22 22:00 06/23/22 00:00 06/23/22 02:00 Temperature Pulse Rate 89 97 88 Respiratory Rate Blood Pressure Pulse Oximetry Oxygen Delivery 06/23/22 00:00 06/23/22 04:00 06/23/22 04:00 Temperature 36.5 C Pulse Rate 106 H Respiratory Rate 20 Blood Pressure 127/81 Pulse Oximetry 100 Oxygen Delivery Room Air Room Air 06/23/22 04:00 06/23/22 06:00 06/23/22 08:30 Temperature Pulse Rate 93 96 94 Respiratory Rate 18 Blood Pressure Pulse Oximetry Oxygen Delivery 06/23/22 08:41 06/23/22 08:44 06/23/22 08:00 Temperature 36.6 C Pulse Rate 94 90 102 H Respiratory Rate 18 18 Blood Pressure 120/64 Pulse Oximetry 98 98 Oxygen Delivery Room Air 06/23/22 08:00 06/23/22 08:00 Temperature Pulse Rate 101 H Respiratory Rate Blood Pressure Pulse Oximetry Oxygen Delivery Room Air Intake/Output Intake/Output: Intake & Output 06/20/22 06/21/22 06/22/22 06/23/22 23:59 23:59 23:59 23:59 Intake Total 770 640 Output Total 2440 1780 Yipixui -[id number] -306 Meds/Results Medications: Active Medications Generic Name Dose Route Start Last Admin Trade Name Freq PRN Reason Stop Dose Admin Acetaminophen 650 mg 06/22/22 09:45 Acetaminophen 325 Mg Tablet P
[2022-06-23] MEDS: FUROSEMIDE 40 MG TABLET PO (12:47)
[2022-06-23] MEDS: INSULIN ASPART (*BKC) 100 UNITS/ML SUB-Q (12:47)
[2022-06-23 13:10] LABS: Glucose Point of Care 229 mg/dl (65-105)
[2022-06-23 16:49] LABS: Glucose Point of Care 127 mg/dl (65-105)
[2022-06-23] MEDS: METOPROLOL TARTRATE 25 MG TABLET PO (17:16)
--- NOTE | 2022-06-23 17:59 | PC.NURSE ---
This patient, Solo Driver, was received from [[id number] ] on 06/23/22 at 174. Patient/family oriented to unit policies and routines
[2022-06-23] MEDS: ATORVASTATIN 40 MG TABLET 80 MG PO (20:44)
[2022-06-23 21:42] LABS: Glucose Point of Care 211 mg/dl (65-105)
[2022-06-24] VITALS (7 sets, daily range): BP systolic 112; BP diastolic 70; PULSE 81–94; RESP 18–20; TEMP 35.8; O2SAT 96–98
[2022-06-24] MEDS: ALBUTEROL SULFATE NEB 2.5 MG/3 ML INH 5 MG INHALATION ×2 (03:04→08:39)
[2022-06-24] MEDS: IPRATROPIUM BR 0.02% INH SOLN 0.5 MG/2.5 ML VIAL INHALATION ×2 (03:04→08:38)
[2022-06-24 06:21] LABS: Basophils Percent Auto 0.4 % (0.2-1.2); Eosinophils Absolute Auto 0.1 K/mm3 (0-0.3); Eosinophils Percent Auto 2.4 % (0-4.4); Hemoglobin 9.5 g/dL (14.0-18.0); Immature Granulocyte Absolute 0.02 K/mm3 (0.00-0.031); Immature Granulocyte Percent A 0.4 % (0-0.5); Lymphocytes Percent Auto 14.9 % (18.3-44.2); Mean Corpuscular HGB Conc 27.9 g/dl (32-36); Mean Corpuscular Hemoglobin 23.6 pg (26-34); Mean Corpuscular Volume 84.6 fl (80-100); Mean Platelet Volume 9.7 fl (7.4-10.4); Monocytes Absolute Auto 0.6 K/mm3 (0.1-0.6); Monocytes Percent Auto 10.2 % (2.6-8.5); Neutrophils Absolute Auto 3.9 K/mm3 (1.3-6.7); Neutrophils Percent Auto 71.7 % (45.5-73.1); Platelet Count Result 330 k/mm3 (150-375); Red Blood Count 4.02 M/mm3 (4.6-6.20); Red Cell Distribution Width 18.9 % (11.5-14.5); White Blood Count 5.4 K/mm3 (4.5-10.0)
[2022-06-24 06:36] LABS: Alanine Aminotransferase 28 U/L (6-50); Albumin Level 4.6 g/dL (3.5-5.1); Alkaline Phosphatase 87 U/L (38-126); Anion Gap 15 mmol/L (8-16); Aspartate Amino Transferase 32 U/L (17-59); Bilirubin,Total 0.7 mg/dL (0.2-1.3); Blood Urea Nitrogen 24 mg/dL (9-20); Calcium 9.3 mg/dL (8.4-10.2); Carbon Dioxide 29 mmol/L (22-30); Chloride 99 mmol/L (98-107); Estimated CRCL calculation 47 ml/min; Estimated Glomerular Filt Rate > 60; Glucose 190 mg/dL (65-110); Potassium 3.4 mmol/L (3.4-5.0); Sodium 143 mmol/L (137-145)
[2022-06-24] MEDS: FUROSEMIDE 40 MG TABLET PO (09:16)
[2022-06-24] MEDS: METOPROLOL TARTRATE 50 MG TAB PO (09:16)
[2022-06-24] MEDS: ENOXAPARIN 40 MG/0.4 ML SYRINGE SUB-Q (09:17)
[2022-06-24] MEDS: EMPAGLIFLOZIN 25 MG TABLET PO (09:17)
[2022-06-24] MEDS: ASPIRIN 81 MG ENTERIC TABLET PO (09:17)
[2022-06-24] MEDS: PANTOPRAZOLE SOD SESQUIHYDRATE 20 MG TAB PO (09:17)
--- NOTE | 2022-06-24 10:58 | PM.PNCARD ---
Progress Note: A&P Assessment and Plan (1) Heart failure, systolic, with acute decompensation: Code(s): I50.23 - Acute on chronic systolic (congestive) heart failure Status: Acute Assessment and Plan: Unclear what caused this exacerbation unless as simply that he has an ischemic cardiomyopathy and perhaps a little too much fluid intake. EKG on admission shows some slight ST depression in V5 and V6 which resolved in his EKG went back to baseline. Will have to correlate with his coronary anatomy. Troponins were minimally elevated and flat. On home Lasix 20mg. Will increase to 40mg once daily. Continue beta cortez and Jardiance Will add Entresto, 24/26 mg half a tablet b.i.d. Patient is expecting echo prior to discharge, will call with results. Okay for discharge today. Will arrange a follow-up visit. Likely return to cardiac rehab next week. Fluid restriction at home of 2315-4830 cc daily. Keep sodium intake 6469-1556 mg daily. (2) Hx of coronary artery bypass graft: Code(s): Z95.1 - Presence of aortocoronary bypass graft Status: Acute Assessment and Plan: Continue ASA, statin, and beta cortez Subjective Date/time seen: 06/24/22 10:58 Interval history: F/U visit for heart failure. History of CAD, cardiomyopathy and recent CABG. 06/23/2022:Patient feeling much better this morning. No longer has shortness of breath. No lower extremity edema. Change to p.o. Lasix. Date of service 06/24/2022: Feeling better, walked half a mile in the halls already with no shortness of breath. A little dizzy at times. Some chest Pain/soreness, reproducible with movement. Very anxious upset that he has problems with CHF. Has been is staying away from salt and salty foods at home. Drinks a lot of fluids ( water and soda ) but no use of nonsteroidals at home. Systolic BP 110-127 mmHg. On room air O2. Review of Systems Review of Systems: Some chest discomfort, reproducible with arm movements. Some dizziness at times. No shortness of breath, edema, stomach problems. Exam Narrative: pleasant room male, sitting on edge of bed, [id number] at bedside. Const: General: cooperative, healthy appearing and comfortable; No confusion Orientation/consciousness: oriented to person, patient oriented x3 and No confusion HENMT: Mouth: Yes moist mucous membranes Eyes: EOM: EOMs intact bilaterally Neck: Neck: supple and no JVD Resp: Effort & Inspection: normal respiratory effort Auscultation: rales ( Few scattered rales in the left lower lobe) Cardio: Rate: regular rate Rhythm: regular rhythm Heart sounds: Murmur heart sound present ( 1/6 DIEGO left sternal border, not at the apex) GI: Inspection: normal to inspection GI Palp: No abdominal tenderness Skin: General skin exam: normal color and no rashes or lesions noted Neuro: General: oriented to person, patient oriented x3 and No confusion Extrem: Right lower extremity: no edema Left lower extremity: no edema Psych: Appearance: grossly normal Mental Status: mental status grossly normal Affect: Anxious affect present Objective Data Vital Signs Vital Signs: Vital Signs - 24 hr 06/23/22 12:00 06/23/22 14:00 06/23/22 14:11 Temperature 98.1 F Pulse Rate 83 80 88 Respiratory Rate 16 18 18 Blood Pressure 110/60 Pulse Oximetry 95 Oxygen Delivery 06/23/22 16:00 06/23/22 20:40 06/23/22 20:40 Temperature 99 F Pulse Rate 87 83 83 Respiratory Rate 16 18 Blood Pressure 116/61 Pulse Oximetry 96 95 Oxygen Delivery Room Air 06/23/22 20:49 06/23/22 22:58 06/23/22 22:00 Temperature 97.2 F L Pulse Rate 87 84 81 Respiratory Rate 18 18 Blood Pressure 116/63 Pulse Oximetry 96 94 Oxygen Delivery Autopap 06/23/22 20:45 06/24/22 02:55 06/24/22 02:58 Temperature Pulse Rate 89 89 Respiratory Rate 18 Blood Pressure Pulse Oximetry 98 Oxygen Delivery Autopap Autopap 06/24/22 03:06 11
--- NOTE | 2022-06-24 11:23 | ECHO_ITS ---
Patient Info Name: Solo Driver Age: 72 years : 1950 Gender: Male Ht: 66 in Wt: 173 lbs BSA: 1.93 m2 HR: 94 bpm BP: 112 / 70 mmHg Heart Rhythm: Sinus Rhythm Technical Quality: Fair Exam Date: 06/24/2022 11:54 AM Exam Location: [facility] Pul[facility] Patient Status: Inpatient Admit Date: 06/22/2022 Staff Ordering Physician: Fiordaliza Henao MD Telephone Supervisor: Monica Tinoco RDCS Attending Provider: Marty Horta MD Referring Physician: Juliano JIMÉNEZ; Exam Type: CA echo dop color flow w con Study Info Indications - CHF, CAD Complete two-dimensional, color flow and Doppler transthoracic echocardiogram is performed with contrast to opacify the left ventricle and to improve the deliniation of the left ventricle endocardial borders. Strain analysis performed. Contrast/Agitated Saline Contrast/Ag. Saline: Definity Amount: 3.00 ml Administered By: Monica Tinoco RDCS Existing IV Access: Yes IV Access Condition: patent with no signs of infiltration Summary 1. Left ventricular systolic function is mildly reduced, estimated at 40-45%. 2. The left ventricular diastolic function is grade I diastolic dysfunction. 3. Right ventricular systolic function is normal. 4. There is mild mitral valve regurgitation. 5. There is mild tricuspid valve regurgitation. Left Ventricle Left ventricular chamber dimension is mildly enlarged. Left ventricular systolic function is mildly reduced, estimated at 40-45%. There is no increased left ventricular wall thickness. The left ventricular diastolic function is grade I diastolic dysfunction. Right Ventricle Right ventricular chamber dimension is normal. Right ventricular systolic function is normal. Left Atria Left atrial chamber dimension is normal. Right Atria Right atrial chamber dimension is normal. Aortic Valve The aortic valve is not well visualized. There is mild aortic valve sclerosis. There is no aortic valve stenosis. There is no aortic valve regurgitation. Pulmonic Valve The pulmonic valve is not well visualized. Mitral Valve The mitral valve has normal leaflets. There is no mitral valve stenosis. There is mild mitral valve regurgitation. Tricuspid Valve The tricuspid valve leaflets are normal. There is mild tricuspid valve regurgitation. Pericardium/Pleural The pericardium appears epicardial fat pad. There is no pericardial effusion. Inferior Vena Cava Normal inferior vena cava with >50% collapse upon inspiration consistent with normal right atrial pressure, 3 mmHg. Aorta The aortic root size at the sinus of Valsalva is normal. Left Ventricular Outflow Tract Name Value Normal LVOT 2D LVOT Diameter 2.05 cm LVOT Doppler LVOT Peak Gradient 3 mmHg LVOT Mean Gradient 2 mmHg LVOT VTI 15.40 cm LVOT VTI/AV VTI Ratio 0.80 LVOT Stroke Volume 50.71 ml LVOT CO 4.12 l/min
[2022-06-24 11:57] LABS: Glucose Point of Care 199 mg/dl (65-105)
[2022-06-24] MEDS: PERFLUTREN LIPID MICROSPHERES 1.5 ML VIAL DILUTED TO 10 ML TOTAL VOLUME IV PUSH (12:08)
--- NOTE | 2022-06-24 12:08 | IVDEFINITY ---
Prior to administration of IV Definity the patient was educated on the risks and benefits of the imaging enhancing agent including potential adverse side effects. The patient verbalized understanding. Allergies were verified. No exclusion criteria were identified and at least one of the following inclusion criteria were met: 1) physician request, 2) patient technically difficult to image (per the [place] [employer] guidelines of two or more segments not discernable within the apical view), or 3) questionable left ventricular function. ?
--- NOTE | 2022-06-24 13:20 | PM.DS ---
DS: Admitting Diagnosis Discharge Date 24 june 2022 Admitting Diagnosis Shortness of breath DS: Discharge Diagnosis Discharge Diagnosis (1) Heart failure, systolic, with acute decompensation: Code(s): I50.23 - Acute on chronic systolic (congestive) heart failure Status: Acute Assessment and Plan: Continue IV Lasix. Responding well to diuresis. Transition to oral lasix 40mg po qdaily. Entresto is started Continue statin, beta-cortez Echo completed in hospital, pt will get echo result in cardiology apt (2) COPD exacerbation: Code(s): J44.1 - Chronic obstructive pulmonary disease with (acute) exacerbation Status: Acute Assessment and Plan: Stable. Continue nebulizer (3) Acute dyspnea: Code(s): R06.00 - Dyspnea, unspecified Status: Acute Assessment and Plan: Likely from combination of mild COPD exacerbation and CHF exacerbation. (4) CAD (coronary artery disease): Code(s): I25.10 - Atherosclerotic heart disease of [place] coronary artery without angina pectoris Status: Acute Assessment and Plan: Stable. Mild troponin elevation likely secondary to demand ischemia. Continue beta-cortez, aspirin, statin (5) Acute UTI: Code(s): N39.0 - Urinary tract infection, site not specified Status: Acute Assessment and Plan: On IV Rocephin pt has Ecoli UTI Pt transitioned to Augmentin on Dc for 7 days (6) Type 2 diabetes mellitus with diabetic chronic kidney disease: Code(s): E11.22 - Type 2 diabetes mellitus with diabetic chronic kidney disease Status: Acute Assessment and Plan: Continue metformin. Continue Jardiance. DS: Summary Hospital Course Hospital Course: 72-year-old male with past medical history significant for coronary artery disease, coronary artery bypass graft,? type 2 diabetes mellitus, dyslipidemia, type 2 diabetes mellitus, COPD. patient presents to the emergency room due to shortness of breath and wheezing he has been participating in cardiac rehabilitation has been walking 1 mi a day and has been doing 35-40 minutes on his treadmill. Pt did well with iv diuresis transitioned to oral lasix and Entresto. Pt to have cardiac rehab and cardiology follow up. Time Spent with Patient Time attestation: Total time spent providing and/or coordinating discharge services: Exam Narrative: General: No acute distress, alert and oriented per baseline HEENT: Atraumatic, normocephalic, mucous membranes moist CV: Regular rate and rhythm, S1, S2 Lungs: Clear to auscultation bilaterally, no rales or crackles noted, no wheezes, good air entry Abdomen: Soft, nontender, nondistended Extremities: Normal to inspection Skin: No rashes noted, no lesions or wounds seen Psych: Euthymic, normal affect Const: General: cooperative, comfortable, no acute distress, well developed, alert, awake and average body habitus Nutritional Appearance: average body habitus Orientation/consciousness: patient oriented x3 HENMT: Head: normal to inspection, normocephalic and atraumatic Ears: hearing grossly normal bilaterally Face/Nose/Sinus: normal facial exam Face and sinus: normal facial exam Mouth: Yes Normal oral and palatal mucosa present Eyes: General: appearance normal, both eyes and all related structures Pupils: Equal, round and reactive pupils present EOM: EOMs intact bilaterally Neck: Neck: full ROM, no lymphadenopathy and no JVD Thyroid: thyroid normal Lymphatic: no lymphadenopathy noted Chest: Chest palpation & inspection: other ( midline sternotomy wound healed) Resp: Effort & Inspection: normal respiratory effort, able to speak in complete sentences, no audible wheezes, Actively coughing, not labored, no respiratory distress and not tachypneic Auscultation: clear to auscultation bilaterally and crackles Cardio: Jugular venous distension: no JVD Rate: regular rate Rhythm: regular rhythm Heart sounds: S
== END 2022-06-24 13:49 | disposition home or self-care (01) ==
LOC: ANHED 04:43 → ANHIMU 05:48 → ANH3MEDSUR 06-24 13:20 → ANHIMU 06-25 11:26
PROVIDERS: Student in an Organized Health Care Education/Training Program; Admitting Provider Internal Medicine; Emergency Provider Emergency Medicine; PCP Family Medicine; Visit Provider Hospitalist
DX: I13.0 Hypertensive heart and chronic kidney disease with heart failure and stage 1 through stage 4 chronic kidney disease, or unspecified chronic kidney disease (principal); E11.22 Type 2 diabetes mellitus with diabetic chronic kidney disease; N18.9 Chronic kidney disease, unspecified; I50.33 Acute on chronic diastolic (congestive) heart failure; J44.1 Chronic obstructive pulmonary disease with (acute) exacerbation; I25.10 Atherosclerotic heart disease of native coronary artery without angina pectoris; Z95.1 Presence of aortocoronary bypass graft; N39.0 Urinary tract infection, site not specified; B96.20 Unspecified Escherichia coli [E. coli] as the cause of diseases classified elsewhere; E78.5 Hyperlipidemia, unspecified; I25.2 Old myocardial infarction; R00.0 Tachycardia, unspecified; R94.31 Abnormal electrocardiogram [ECG] [EKG]; Z87.891 Personal history of nicotine dependence; Z86.16 Personal history of COVID-19; Z87.01 Personal history of pneumonia (recurrent); Z86.73 Personal history of transient ischemic attack (TIA), and cerebral infarction without residual deficits; Z79.84 Long term (current) use of oral hypoglycemic drugs; Z79.51 Long term (current) use of inhaled steroids; Z79.1 Long term (current) use of non-steroidal anti-inflammatories (NSAID); Z79.899 Other long term (current) drug therapy; Z82.3 Family history of stroke; Z83.3 Family history of diabetes mellitus; Z82.49 Family history of ischemic heart disease and other diseases of the circulatory system
CPT/HCPCS: 36415; 71045; 80053; 81001; 82948; 83036; 83690; 83880; 84484; 85025; 85610; 85730; 87077; 87086; 87186; 93005; 94640; 96365; 96372; 96375; 96376; 99285; A9270; C8929; G0378; J0696; J1650; J1815; J1940; Q9957

== ENCOUNTER 2022-08-27 08:30 | Outpatient (RCR) | payer MEDICARE, SELFPAY ==
[2022-07-03 16:07] LABS: Glucose Point of Care 131 mg/dl (65-105)
== END 2022-08-29 12:03 | disposition home or self-care (01) ==
LOC: ANHCPREHAB 08:30
PROVIDERS: PCP Family Medicine; Visit Provider Internal Medicine Cardiovascular Disease
DX: Z95.5 Presence of coronary angioplasty implant and graft (principal)
CPT/HCPCS: 93798

== ENCOUNTER 2022-11-03 08:09 | Outpatient (CLI) | payer MEDICARE, SELFPAY ==
[2022-11-03 08:59] LABS: Anion Gap 8 mmol/L (8-16); Blood Urea Nitrogen 23 mg/dL (9-20); Carbon Dioxide 29 mmol/L (22-30); Chloride 101 mmol/L (98-107); Estimated Glomerular Filt Rate > 60; Glucose 205 mg/dL (65-110); Potassium 4.6 mmol/L (3.4-5.0); Sodium 138 mmol/L (137-145)
== END 2022-11-03 08:10 | disposition home or self-care (01) ==
PROVIDERS: PCP Family Medicine; Visit Provider Internal Medicine Cardiovascular Disease
DX: I50.43 Acute on chronic combined systolic (congestive) and diastolic (congestive) heart failure (principal)
CPT/HCPCS: 36415; 80048

== ENCOUNTER 2022-12-15 08:19 | Outpatient (CLI) | payer MEDICARE, SELFPAY ==
[2022-12-15 09:53] LABS: Anion Gap 6 mmol/L (8-16); Blood Urea Nitrogen 23 mg/dL (9-20); Carbon Dioxide 28 mmol/L (22-30); Chloride 102 mmol/L (98-107); Estimated Glomerular Filt Rate > 60; Glucose 200 mg/dL (65-110); Potassium 4.8 mmol/L (3.4-5.0); Sodium 136 mmol/L (137-145)
== END 2022-12-15 08:20 | disposition home or self-care (01) ==
LOC: ANHLAB 08:23
PROVIDERS: PCP Family Medicine; Visit Provider Nurse Practitioner Adult Health
DX: I25.5 Ischemic cardiomyopathy (principal)
CPT/HCPCS: 36415; 80048

== ENCOUNTER 2023-01-09 10:46 | Outpatient (CLI) | payer MEDICARE, SELFPAY ==
[2023-01-09 11:24] LABS: Hematocrit 45.7 % (42.0-52.0)
[2023-01-09 11:36] LABS: Alanine Aminotransferase 40 U/L (6-50); Albumin Level 4.9 g/dL (3.5-5.1); Alkaline Phosphatase 106 U/L (38-126); Anion Gap 11 mmol/L (8-16); Aspartate Amino Transferase 34 U/L (17-59); Bilirubin,Total 0.7 mg/dL (0.2-1.3); Blood Urea Nitrogen 26 mg/dL (9-20); Calcium 9.1 mg/dL (8.4-10.2); Carbon Dioxide 28 mmol/L (22-30); Chloride 98 mmol/L (98-107); Estimated Glomerular Filt Rate > 60; Glucose 257 mg/dL (65-110); Hemoglobin A1C 9.5 % (<5.7); Potassium 4.5 mmol/L (3.4-5.0); Sodium 137 mmol/L (137-145)
== END 2023-01-09 10:47 | disposition home or self-care (01) ==
PROVIDERS: PCP Family Medicine; Visit Provider Family Medicine
DX: D50.9 Iron deficiency anemia, unspecified (principal); E11.9 Type 2 diabetes mellitus without complications; I10 Essential (primary) hypertension
CPT/HCPCS: 36415; 80053; 83036; 85014; 85018

== ENCOUNTER 2023-08-03 11:22 | Outpatient (CLI) | payer MEDICARE, SELFPAY ==
[2023-08-03 12:09] LABS: Basophils Percent Auto 0.4 % (0.2-1.2); Eosinophils Absolute Auto 0.1 K/mm3 (0-0.3); Eosinophils Percent Auto 1.2 % (0-4.4); Hematocrit 48.6 % (42.0-52.0); Hemoglobin 15.4 g/dL (14.0-18.0); Immature Granulocyte Absolute 0.03 K/mm3 (0.00-0.031); Immature Granulocyte Percent A 0.4 % (0-0.5); Lymphocytes Absolute Auto 1.32 K/mm3 (0.9-3.2); Lymphocytes Percent Auto 15.8 % (18.3-44.2); Mean Corpuscular HGB Conc 31.7 g/dl (32-36); Mean Corpuscular Hemoglobin 31.6 pg (26-34); Mean Corpuscular Volume 99.8 fl (80-100); Mean Platelet Volume 10.7 fl (7.4-10.4); Monocytes Absolute Auto 0.8 K/mm3 (0.1-0.6); Monocytes Percent Auto 9.4 % (2.6-8.5); Neutrophils Absolute Auto 6.1 K/mm3 (1.3-6.7); Neutrophils Percent Auto 72.8 % (45.5-73.1); Platelet Count Result 258 k/mm3 (150-375); Red Blood Count 4.87 M/mm3 (4.6-6.20); Red Cell Distribution Width 12.7 % (11.5-14.5); White Blood Count 8.4 K/mm3 (4.5-10.0)
[2023-08-03 12:24] LABS: Alanine Aminotransferase 33 U/L (6-50); Albumin Level 4.5 g/dL (3.5-5.1); Alkaline Phosphatase 81 U/L (38-126); Anion Gap 10 mmol/L (8-16); Aspartate Amino Transferase 27 U/L (17-59); Bilirubin,Total 0.8 mg/dL (0.2-1.3); Blood Urea Nitrogen 20 mg/dL (9-20); Calcium 9.8 mg/dL (8.4-10.2); Carbon Dioxide 30 mmol/L (22-30); Chloride 99 mmol/L (98-107); Estimated Glomerular Filt Rate > 60; Glucose 170 mg/dL (65-110); Sodium 139 mmol/L (137-145)
== END 2023-08-03 11:23 | disposition home or self-care (01) ==
PROVIDERS: PCP Family Medicine; Visit Provider Internal Medicine Cardiovascular Disease
DX: I25.10 Atherosclerotic heart disease of native coronary artery without angina pectoris (principal); I50.42 Chronic combined systolic (congestive) and diastolic (congestive) heart failure; Z95.1 Presence of aortocoronary bypass graft; R94.39 Abnormal result of other cardiovascular function study
CPT/HCPCS: 36415; 80053; 85025

== ENCOUNTER 2023-10-20 05:04 | Day surgery (SDC) | payer MEDICARE, SELFPAY ==
[2023-10-19 14:13] VITALS: BMI 28.3
[2023-10-20] VITALS (17 sets, daily range): BP systolic 107–133; BP diastolic 56–73; PULSE 79–97; RESP 14–23; TEMP 36.5–37; O2SAT 92–96; BMI 28.5
--- NOTE | ~2023-10-20 | XR_ITS ---
EXAMINATION: XR chest 1V portable DATE: 10/20/2023 11:14 INDICATION: Implanted cardiac defibrillator placement. TECHNIQUE: A single frontal view of the chest was obtained. COMPARISON: Chest single view 06/22/2022, CT abdomen and pelvis 04/04/2022 FINDINGS: There is mild atelectasis in left lower lung zone. There is a small left pleural effusion. No pneumothorax. The heart size is normal. Median sternotomy fixation and surgical clips are noted, l ikely from prior coronary artery bypass grafting. There is a left chest pacer/defibrillator with lead in right ventricle. IMPRESSION: 1. Mild atelectasis in left lower lung zone. 2. Small left pleural effusion. Reviewed, dictated and finalized at location A. HER
--- NOTE | ~2023-10-20 | XR_ITS ---
EXAMINATION: XR chest 2V DATE: 10/21/2023 10:11 INDICATION: Implanted cardiac defibrillator placement. TECHNIQUE: Frontal and lateral views of the chest were obtained. COMPARISON: Chest single view 10/20/2023, CT abdomen and pelvis 04/04/2022 FINDINGS: There is mild atelectasis in left lower lung zone. There is a small left pleural effusion. No pneumothorax. The heart size is normal. Median sternotomy fixation and surgical clips are noted, l ikely from prior coronary artery bypass grafting. There is a left chest pacer/defibrillator with lead in right ventricle. IMPRESSION: 1. Mild atelectasis in left lower lung zone. 2. Small left pleural effusion. Reviewed, dictated and finalized at location A. R CARTER
--- NOTE | 2023-10-20 07:00 | ECG_ITS ---
Measurements Intervals Lane Rate: 87 P: 17 OH: 163 QRS: 42 QRSD: 96 T: 85 QT: 343 QTc: 415 Interpretive Statements SINUS RHYTHM POOR R WAVE PROGRESSION COMPARED TO ECG 06/22/2022 09:47:16 THE RATE IS SLOWER Electronically Signed On 10-20-2023 12:38:32 [employer] by Fiordaliza Henao M.D.
[2023-10-20 07:49] LABS: Basophils Percent Auto 0.4 % (0.2-1.2); Eosinophils Absolute Auto 0.1 K/mm3 (0-0.3); Eosinophils Percent Auto 1.9 % (0-4.4); Hematocrit 45.2 % (42.0-52.0); Hemoglobin 14.4 g/dL (14.0-18.0); Immature Granulocyte Absolute 0.03 K/mm3 (0.00-0.031); Immature Granulocyte Percent A 0.4 % (0-0.5); Lymphocytes Absolute Auto 0.83 K/mm3 (0.9-3.2); Mean Corpuscular HGB Conc 31.9 g/dl (32-36); Mean Corpuscular Hemoglobin 31.5 pg (26-34); Mean Corpuscular Volume 98.9 fl (80-100); Mean Platelet Volume 10.4 fl (7.4-10.4); Monocytes Absolute Auto 0.7 K/mm3 (0.1-0.6); Monocytes Percent Auto 9.6 % (2.6-8.5); Neutrophils Absolute Auto 5.2 K/mm3 (1.3-6.7); Neutrophils Percent Auto 75.7 % (45.5-73.1); Platelet Count Result 248 k/mm3 (150-375); Red Blood Count 4.57 M/mm3 (4.6-6.20); Red Cell Distribution Width 12.4 % (11.5-14.5); White Blood Count 6.9 K/mm3 (4.5-10.0)
[2023-10-20 08:00] LABS: Prothrombin Time 13.2 Seconds (11.1-14.7)
[2023-10-20 08:04] LABS: Anion Gap 7 mmol/L (8-16); Blood Urea Nitrogen 17 mg/dL (9-20); Calcium 9.3 mg/dL (8.4-10.2); Carbon Dioxide 26 mmol/L (22-30); Chloride 103 mmol/L (98-107); Estimated CRCL calculation 63 ml/min; Estimated Glomerular Filt Rate > 60; Glucose 145 mg/dL (65-110); Potassium 4.2 mmol/L (3.4-5.0); Sodium 136 mmol/L (137-145)
--- NOTE | 2023-10-20 08:47 | WPDHPUPDATE1 ---
History and Physical Update Update Date/Time: 10/20/23 08:47 Mr. Driver is a 73 y.o. male with an ischemic cardiomyopathy who is here for an ICD implant for primary prevention. His EF is 30% despite guide-line directed medical tx since 2021. H/O [place] and CABG in March 2022, and CHF. History and Physical has been reviewed, including an updated exam of the patient. There are NO changes in the patient's condition. Risks, benefits, and alternatives have been discussed and questions answered. Patient agrees to proceed with procedure.
--- NOTE | 2023-10-20 08:50 | WPDMODSED ---
Moderate Sedation Note-Pt Data Patient Data Diagnosis: Ischemic cardiomyopathy with EF 30%, at risk for sudden cardiac . Present Complaint: Mr. Driver is a 73 y.o. male with an ischemic cardiomyopathy who is here for an ICD implant for primary prevention.? His EF is 30% despite guide-line directed medical tx since 2021.? H/O PR and CABG in March 2022, and CHF. H/O HTN, YOLANDA, COPD, DM. He is feeling well and has not eaten today. Procedure to be performed/Plan: Conscious sedation venogram Implantation of a ICD Allergies Allergy/AdvReac Type Severity Reaction Status Date / Time No Known Allergies Allergy Verified 10/20/23 07:24 Home Medications Medication Instructions Recorded Confirmed Type albuterol sulfate 90 mcg/actuation 2 puff inhalation QID PRN 04/03/22 10/20/23 History aerosol inhaler (ProAir HFA) Shortness Of Breath Or Wheezing metformin 1,000 mg tablet 500 mg PO BIDWMEAL 04/03/22 10/19/23 History aspirin 81 mg tablet,delayed 81 mg PO DAILY #90 tabs 06/10/22 10/20/23 Rx release (Adult Aspirin Regimen) atorvastatin 80 mg tablet 80 mg PO QHS 06/22/22 10/20/23 History pantoprazole 20 mg tablet,delayed 20 mg PO BID 06/22/22 10/20/23 History release sacubitril 24 mg-valsartan 26 mg 0.5 tablet PO Q12HR #60 tabs 06/24/22 10/20/23 Rx tablet (Entresto) metoprolol tartrate 25 mg tablet 50 mg PO TID 30 days #180 tabs 07/03/22 10/20/23 Rx polysaccharide iron complex 150 mg 150 mg PO DAILY #90 caps 07/03/22 10/20/23 Rx iron capsule (Ferrex) potassium chloride 20 mEq oral 20 meq PO DAILY #100 ea 07/03/22 10/20/23 Rx packet empagliflozin 25 mg tablet 25 mg PO DAILY #90 tabs 08/20/22 10/20/23 Rx (Jardiance) pen needle, diabetic 32 gauge x 01/20/23 08/28/23 History (AboutTime Pen Needle) semaglutide 1 mg/dose (4 mg/3 mL) 1 mg subcut WEEKLY 05/21/23 10/19/23 History subcutaneous pen injector (Ozempic) insulin glargine-yfgn 100 unit/mL 14 unit subcut QPM 08/28/23 10/19/23 History (3 mL) subcutaneous pen furosemide 40 mg tablet 40 mg PO DAILY #90 tabs 09/21/23 10/19/23 Rx Sedation/Anesthesia: No previous sedation/anesthesia problems (including family history). [facility] Past Medical History Medical History Acute respiratory failure [place] (acute kidney injury) CAD (coronary artery disease) COPD (chronic obstructive pulmonary disease) CVA (cerebral vascular accident) Diabetes mellitus with hypoglycemia Essential hypertension History of tobacco abuse Hyperlipidemia associated with type 2 diabetes mellitus NSTEMI (non-ST elevated myocardial infarction) Pneumonia due to COVID-19 virus Sepsis with acute hypoxic respiratory failure T2DM (type 2 diabetes mellitus) Family History Family History Father Acute myocardial infarction Hx of CABG Mother Cerebrovascular accident Diabetes mellitus Social History Social History Social History: Smoking packs per day: 2 Smoking cigarettes per day: 40.0 Years smoked: 40 Smoking pack-years: 80.00 Smoking status: Former smoker Tobacco type: cigarettes Second hand tobacco smoke exposure: No Smoking end date: 04/28/04 Alcohol intake: former Substance use: former Substance use type: marijuana Do You Feel Safe in your Home?: Yes Lack of Transportation: No Lack of Food: Never True Current Housing: I Have Housing Concerned About Future Housing: No Difficulty Paying Gas/Electric Bills: No Difficulty Paying for Meds: No Currently Unemployed: No Education: High School Diploma/GED Difficulty w/ Childcare or Family Care: No Living arrangements: with family Occupation/Education: retired Gender identity (if verbalized by the patient): Male Sexual Orientation (if Verbalized by the Patient): Straight or Heterosexual Sp
--- NOTE | 2023-10-20 10:24 | P.OPB_ITS ---
Procedure Note - Brief Procedure Note - Brief Date of procedure: 10/20/23 Low Ejection fraction, ischemic cardiomyopathy, at risk for sudden cardiac Post-op diagnosis: Other ( status post ICD) Procedure performed: conscious sedation Venogram Implantation of a single lead Biotronik ICD Surgeon: Fiordaliza Henao MD Anesthesia: local ( with conscious sedation) Description of procedure: uneventful implant of a single lead Biotronik ICD Complications: No immediate complications Condition: Stable Disposition: Observation
--- NOTE | 2023-10-20 10:28 | ECG_ITS ---
Measurements Intervals [place] Rate: 86 P: 27 OK: 167 QRS: 48 QRSD: 95 T: 85 QT: 359 QTc: 430 Interpretive Statements SINUS RHYTHM SEPTAL MYOCARDIAL INFARCTION , OF INDETERMINATE AGE [40+ ms Q WAVE IN V1/V2] ABNORMAL ECG COMPARED TO ECG 10/20/2023 07:49:37 NO CHANGE Electronically Signed On 10-20-2023 15:39:37 TRUCK ENGINE TECHNICIAN by Alden Dixon M.D.
--- NOTE | 2023-10-20 10:32 | W.PM.PROC2 ---
Procedure Note - Detailed Date of Procedure 10/20/23 Pre-op Diagnosis ischemic cardiomyopathy, ejection fraction 30%, at risk for sudden cardiac Post-op Diagnosis Other ( status post ICD implant for primary prevention) Procedure Performed Conscious sedation Venogram Implantation of a is single lead Biotronik ICD Surgeon Fiordaliza Henao MD Anesthesia Local ( with conscious sedation) Indications Mr. Driver is a 73 y.o. male with an ischemic cardiomyopathy who is here for an ICD implant for primary prevention.? His EF is 30% despite guide-line directed medical tx since 2021.? H/O [place] and CABG in March 2022, and CHF.? H/O HTN, YOLANDA, COPD, DM.? He is feeling well and has not eaten today.? Description of Procedure SITE: Left prepectoral area MEDICATIONS GIVEN IN FARM MACHINERY ERECTOR: Ancef 2 gram IV piggyback CONSCIOUS SEDATION: Assessment: The patient has no history of anesthesia problems. The patient's oropharynx is clear. The patient was deemed to be a good candidate for conscious sedation. The patient had continuous hemodynamic monitoring during the procedure. Start time: 9:19 a.m. Completion time: 10:19 a.m. Total conscious sedation time: 60 minutes Medications: Versed 7 mg, fentanyl 125 mcg IV push Trained observer: Ethel Singer RN Outcome: The patient tolerated the procedure well with no complications. PROCEDURE: After informed consent , the patient was brought to the labor relations teacher and the left prepectoral area was prepped and draped in usual fashion . The patient received preop antibiotic and conscious sedation . The left prepectoral area was anesthetized with lidocaine . A venogram was performed showing the course of the left subclavian vein,which was patent. Next a skin incision was made and carried down to the prepectoral fascia. Hemostasis was obtained using electrocautery . The pacer pocket was formed. The left subclavian artery was inadvertently punctured with the micropuncture; heostasis obtained w/ local pressure. The left subclavian vein was then easily accessed with the micropuncture technique, and a J-tipped guide wire was passed into the inferior vena cava under fluoroscopic guidance. The needle was withdrawn. A 8 Ni[place]an safety sheath was passed over the wire, the wire withdrawn, and the right ventricular lead was passed into the inferior vena cava under fluoroscopic guidance . The lead was then prolapsed through the tricuspid valve and advanced into the right ventricular apex. When suitable sensing and pacing thresholds were obtained, it was screwed into place. No extra cardiac stimulation was obtained using 10 volts. The sheath was withdrawn. The lead was secured to the prepectoral fascia using 2-0 silk over it's sleeve. The pocket was cleansed with antibiotic containing solution . The pulse generator was introduced into the operative field, and both leads were secured into the generator . A gentle tug showed the leads were securely fastened. The device was introduced into the pocket. A stay stitch was applied w/ 2-0 silk suture. The subcutaneous tissues were closed in a double layer fashion with interrupted sutures, using 2-0 Vicryl suture , and the skin was closed in a continuous fashion using 4-0 Vicryl suture in a continuous fashion. The area was cleansed, and an Aquacel dressing was applied . The patient tolerated the procedure well with no complications. MEASURED DATA: Right atrial: P-wave sensing 26 mV Right ventricular lead: R-wave sensing 20 mV, impedance 617 Ohms, threshold 0.6 volts at 0.4 milliseconds PROGRAMMING: VVI lower rate 40, nominal settings Implants PACEMAKER INFORMATION: Pulse generator: Biotronik model [id number], serial [id number] Right atrial lead: N/A Right ventricular lead: Biotronik model [id number], serial [id number] Estimated Blood Loss 10 (cc) Complications No immediate complications Condition Stable Disposition Observation
[2023-10-20] MEDS: HYDROcodone/acetaminophen (*CRX) 5-325 MG TABLET 1 TAB PO ×2 (12:51→19:05)
--- NOTE | 2023-10-20 14:02 | ADMGEN ---
This patient, Solo Driver, was admitted to Medical Room 250-01. Patient/family oriented to hospital policies and general routines including ID bracelet, bed and alarms, visiting hours, pain management, procedures, bathroom and other care routines, personal items, smoking policy, room service/diet, and visiting hours. Information on how to activate the Rapid Response Team has been discussed. Patient/Family are encouraged to report perceived risks to care and to ask questions if they do not understand what they are told or what they should do.
[2023-10-20] MEDS: METOPROLOL TARTRATE 25 MG TABLET PO (18:32)
[2023-10-20] MEDS: metFORMIN HCL 500 MG TABLET PO (18:32)
[2023-10-20] MEDS: PANTOPRAZOLE SOD SESQUIHYDRATE 20 MG TAB PO (18:32)
[2023-10-20] MEDS: ceFAZolin 2 GM/D5W 50 ML 2 GM/50 ML BAG IVPB (18:39)
[2023-10-20] MEDS: POTASSIUM CHLORIDE 20 MEQ ER TABLET PO (19:42)
[2023-10-20] MEDS: POLYSACCHARIDE IRON COMPLEX 150 MG CAPSULE PO (19:42)
[2023-10-20] MEDS: HYDROcodone/acetaminophen (*CRX) 5-325 MG TABLET 2 TAB PO (21:22)
[2023-10-20] MEDS: ATORVASTATIN 40 MG TABLET 80 MG PO (21:24)
[2023-10-20] MEDS: SACUBITRIL/VALSARTAN 12-13 MG TABLET 1 TAB PO (21:24)
[2023-10-21] VITALS (7 sets, daily range): BP systolic 115–120; BP diastolic 55–72; PULSE 78–91; RESP 18; TEMP 36.9–37.1; O2SAT 97–99
[2023-10-21] MEDS: ceFAZolin 2 GM/D5W 50 ML 2 GM/50 ML BAG IVPB (00:09)
[2023-10-21] MEDS: ASPIRIN 81 MG ENTERIC TABLET PO (08:10)
[2023-10-21] MEDS: PANTOPRAZOLE SOD SESQUIHYDRATE 20 MG TAB PO (08:10)
[2023-10-21] MEDS: EMPAGLIFLOZIN 25 MG TABLET PO (08:10)
[2023-10-21] MEDS: METOPROLOL TARTRATE 50 MG TAB PO (08:10)
[2023-10-21] MEDS: FUROSEMIDE 40 MG TABLET PO (08:10)
[2023-10-21] MEDS: SACUBITRIL/VALSARTAN 12-13 MG TABLET 1 TAB PO (08:10)
[2023-10-21] MEDS: metFORMIN HCL 500 MG TABLET PO (08:10)
[2023-10-21] MEDS: POTASSIUM CHLORIDE 20 MEQ ER TABLET PO (08:11)
[2023-10-21] MEDS: POLYSACCHARIDE IRON COMPLEX 150 MG CAPSULE PO (08:11)
[2023-10-21 08:34] LABS: Glucose Point of Care 138 mg/dl (65-105)
[2023-10-21] MEDS: INSULIN GLARGINE (*BKC) 100 UNITS/ML 14 UNITS SUB-Q (08:46)
--- NOTE | 2023-10-21 20:15 | PM.DS ---
DS: Admitting Diagnosis Discharge Date 10/21/23 Admitting Diagnosis Ischemic cardiomyopathy, ejection fraction 30%, at risk for sudden cardiac DS: Discharge Diagnosis Discharge Diagnosis (1) At risk for sudden cardiac : Code(s): Z91.89 - Other specified personal risk factors, not elsewhere classified Status: Acute (2) ICD (implantable cardioverter-defibrillator) in place: Code(s): Z95.810 - Presence of automatic (implantable) cardiac defibrillator Status: Acute (3) Ischemic cardiomyopathy: Code(s): I25.5 - Ischemic cardiomyopathy Status: Acute DS: Summary Hospital Course Reason for hospitalization: Patient is a 73-year-old male with a history of [place], ischemic cardiomyopathy, CABG. His ejection fraction is 30% despite guideline directed medical therapy. He is at risk of sudden cardiac and was admitted for elective Biotronik ICD implant. Hospital Course: The patient underwent uneventful Biotronik ICD implantation on 10/20/2023 with conscious sedation. Chest x-ray showed good position of the leads and interrogation showed good function. He was given instructions on wound care and an antibiotic prescription was sent in to his pharmacy. He will follow-up in 1 week for an incision and ICD check. Status at Discharge Cognitive/behavioral status at discharge: At baseline Time Spent with Patient Time attestation: Total time spent providing and/or coordinating discharge services: Less than 30 minute Exam Const: General: cooperative, healthy appearing and comfortable; No confusion Orientation/consciousness: oriented to person, patient oriented x3 and No confusion HENMT: Mouth: Yes Normal oral and palatal mucosa present Eyes: General: appearance normal, both eyes and all related structures Neck: Neck: supple Resp: Effort & Inspection: normal respiratory effort Auscultation: clear to auscultation bilaterally Cardio: Rate: regular rate Rhythm: regular rhythm GI: Inspection: normal to inspection GI Palp: No abdominal tenderness Skin: General skin exam: no rashes or lesions noted Other: ICD bandages clean and dry, minimal surrounding edema. Neuro: General: oriented to person, patient oriented x3 and No confusion Extrem: Right lower extremity: no edema Left lower extremity: no edema Psych: Appearance: grossly normal Mental Status: mental status grossly normal DS: Data Data Completed and Pending Labs on day of discharge: Labs from last 24 hours 10/21/23 08:10 POC Capillary Glucose 138 H Procedures/Treatments: Implantation of a single lead Biotronik pacemaker Discharge Plan Discharge Patient Disposition: Home, Self-Care Discharge Instructions: Medications: --A prescription for the antibiotic cephalexin was sent to your [facility] pharmacy --Take an extra furosemide 40 mg in the afternoons on and Thursday as your chest xrays showed a small amount of fluid in the bottom of your left lung. Follow Up: --Follow up with Dr. Henao's nurses in 1 week to remove the bandage and for an incision check and pacemaker check. --your appointment is on October 27 at 1:[address] Henao's office. --you also have an appointment with Kiara Mccoy, Nurse Practitioner., on November 11 at 9:30 a.m.. Incision Care --Keep the special Aquacel dressing on the incision until it is removed by [facility] nurse on your follow-up visit which will be scheduled for 1 week. --Keep the dressing clean and dry; no showering above the waist, or swimming until it is removed next week --A small amount of tenderness, puffiness and bruising around the site is normal. Call if any significant pain, drainage, swelling, or redness around the site. [facility] Office: [phone] or [phone]. --No lifting > 15 pound or exercise with the affected arm for 4 weeks. --Keep the affected arm below shoulder height for 4 weeks. --D
== END 2023-10-21 12:35 | disposition home or self-care (01) ==
LOC: ANHCATHLAB 06:54 → ANH2MED 11:53
PROVIDERS: PCP Family Medicine; Visit Provider Internal Medicine Cardiovascular Disease
PROC: 0JH608Z Insertion of Defibrillator Generator into Chest Subcutaneous Tissue and Fascia, Open Approach (ICD-10-PCS; CPT 33249; principal; 2023-10-20 08:30)
DX: I25.5 Ischemic cardiomyopathy (principal); I11.0 Hypertensive heart disease with heart failure; I50.9 Heart failure, unspecified; R94.39 Abnormal result of other cardiovascular function study; J44.9 Chronic obstructive pulmonary disease, unspecified; E11.9 Type 2 diabetes mellitus without complications; I25.2 Old myocardial infarction; J43.9 Emphysema, unspecified; I25.10 Atherosclerotic heart disease of native coronary artery without angina pectoris; E78.5 Hyperlipidemia, unspecified; D49.89 Neoplasm of unspecified behavior of other specified sites; Z95.1 Presence of aortocoronary bypass graft; Z86.73 Personal history of transient ischemic attack (TIA), and cerebral infarction without residual deficits; Z79.51 Long term (current) use of inhaled steroids; Z79.84 Long term (current) use of oral hypoglycemic drugs; Z79.82 Long term (current) use of aspirin; Z79.4 Long term (current) use of insulin; Z79.85 Long-term (current) use of injectable non-insulin antidiabetic drugs; Z87.891 Personal history of nicotine dependence; Z91.89 Other specified personal risk factors, not elsewhere classified
CPT/HCPCS: 33249; 36415; 71045; 71046; 80048; 82948; 85025; 85610; 93005; A9270; C1722; C1777; C1894; J0690; J1815; J2250; J3010; J7040